=== PATIENT | male | born 1985 ===

== ENCOUNTER 2022-08-26 23:45 | Inpatient (IN) | payer OTHER, SELFPAY ==
--- NOTE | ~2022-08-26 | XR_ITS ---
EXAMINATION: XR CHEST CLINICAL INFORMATION: Shortness of breath COMPARISON: 04/14/2019 TECHNIQUE: Frontal view of the chest was obtained. FINDINGS: EKG leads overlie the chest. Lungs are clear. No consolidation, pneumothorax, or pleural effusion. Cardiac and mediastinal contours are normal. Pulmonary vasculature is unremarkable. Osseous structures are unremarkable. XR/XR chest 1V IMPRESSION: No acute cardiopulmonary findings
[2022-08-26 23:47] VITALS: PULSE 124; RESP 30; TEMP 36.9; O2SAT 93; BMI 25.5
[2022-08-26 23:53] VITALS: BP 186/82
--- NOTE | 2022-08-26 23:59 | ED_ITS ---
HPI - Asthma General Chief Complaint: Asthma Stated Complaint: asthma attak Time Seen by Provider: 08/26/22 23:57 Source: patient Mode of arrival: ambulatory Limitations: no limitations History of Present Illness HPI Narrative: 37-year-old male history of asthma presents with complaints of sudden-onset shortness of breath, wheezing, tells me feels like his typical asthma attack however worse than ever. This started 30-40 minutes prior to arrival. Patient took multiple inhalers and nebulizing treatments with little to no relief. He arrives in moderate respiratory distress and speaking in short sentences, di aphoretic appearing, was rash back from triage. Saturating 92%. Patient tells me multiple coworkers are sick with upper respiratory infections. He denies chest pain, fevers, chills, cough, nausea, vomiting, abdominal pain, headache, vision changes, dizziness and weakness. Related Data Allergies Allergy/AdvReac Type Severity Reaction Status Date / Time Penicillins [PENICILLINS] Allergy Unknown UNKNOWN Verified 08/27/22 00:25 Review of Systems Review of Systems: Constitutional : No Weight loss, No Fever, No Chills, No Fatigue, No Malaise ENT/Mouth : No sore throat, No Rhinorrhea Eyes: No Eye Pain, No Swelling, No Redness Cardiovascular : No Chest Pain, + SOB, No Dyspnea on Exertion, No Orthopnea, No Edema, No Palpitations Respiratory : No Cough, No Sputum, + Wheezing Gastrointestinal : No Nausea, No Vomiting, No Diarrhea, No Constipation, No abdominal Pain, No Hematochezia, No Melena Genitourinary : No Dysuria, No Urinary Frequency, No Hematuria, Musculoskeletal : No joint pain, No Myalgias, No Joint Swelling Skin : No Skin Lesions, No rash Neuro : No Weakness, No Numbness, No Dizziness, No Headache Psych : No Anxiety/Panic, No Depression All other systems reviewed and are negative Yes all other systems are reviewed and are negative FOR[facility]LY [facility] Past Medical History Attestation statement: The following information was validated with the patient. Source: old records reviewed and nursing notes reviewed Social History Social History Advance Directives: No Advance Directives Information Provided: Yes Physical Exam Vital Signs: Vital Signs: Last Vital Signs Temp 98.4 F 08/26/22 23:47 Pulse 112 H 08/27/22 00:08 Resp 26 H 08/27/22 00:08 BP 186/82 H 08/26/22 23:53 Pulse Ox 93 08/26/22 23:47 O2 Del Method Room Air 08/26/22 23:47 BMI result Body Mass Index 25.5 Patient hypoxic, tachycardic and tachypneic. Appearance: Alert.? Oriented X3.? Moderate acute distress.? Patient speaking in short sentences, diaphoretic, using accessory muscles for breathing with tracheal tugging. Head: Normocephalic, atraumatic, no step-offs or deformities Eyes: Pupils equal, round and reactive to light.? ENT: Pharynx normal.? Neck: Normal inspection.? Neck supple.? CVS: Normal heart rate and rhythm.? Pulses normal.? Respiratory: Moderate respiratory distress.? Breath sounds diminished with significant expiratory wheezing throughout.? Abdomen: Soft and nontender.? Skin: Skin warm and dry.? Normal skin color.? Normal skin turgor.? Extremities: No lower extremity edema.? No calf ttp. 5/5 strength to bilateral upper and lower extremities Neuro: Oriented X 3.? No motor deficit.? No sensory deficit. CN 2-12 intact Course Reevaluation(s) Reevaluation #1: Patient continues to have labored breathing 92% on room air on telemetry monitor in a sinus tachycardic rhythm, labored breathing still present, IV in place, I did place an 18 gauge IV to the left AC bloods were obtained and are pending at this time. Time: 00:07 Reevaluation #2: White blood cell count 17.4 likely secondary to acute asthma exacerbation/reactive, CBC with eosinophilic predominance supporting this. VBG with a pH of 7.31, otherwise unremarkable. Pending chemistry. Time: 00:27 Reevaluation #3: Patient feels better, saturating 92-94% on room air. Respiratory rate slow down after morphine was given. Patient appears much more comfortable than he was initially. Chemistry unremarkable. Plan is to admit patient to the hospital. Hospitalist aware Time: 00:53 Medications Administered Generic Name Dose Route Start Last Admin Trade Name Freq PRN Reason Stop Dose Admin Magnesium Sulfate 2 gm in 50 mls @ 25 mls/hr 08/26/22 23:57 08/27/22 00:00 Magnesium Sulfate/H2o IV 08/27/22 01:56 25 mls/hr ONCE ONE Administration Discontinued Medications Generic Name Dose Route Start Last Admin Trade Name Bharat PRN Reason Stop Dose Admin Albuterol Sulfate 10 mg 08/26/22 23:57 08/27/22 00:17 Albuterol Sulfate 2.5 Mg/0.5 Ml Vial.Neb INHALE 08/26/22 23:58 Not Given ONCE ONE Albuterol Sulfate 10 mg 08/27/22 00:07 08/27/22 00:14 Albuterol Sulfate (0.083%) 2.5 Mg/3 Ml Vial.Neb INHALE 08/27/22 00:08 10 mg ONCE ONE Administration Methylprednisolone Sodium Succinate 125 mg 08/26/22 23:57 08/27/22 00:00 Methylprednisolone Sod Succ 125 Mg/2 Ml Vial IVPUSH 08/26/22 23:58 125 mg ONCE ONE Administration Morphine Sulfate 2 mg 08/27/22 00:11 08/27/22 00:30 Morphine Sulfate 2 Mg/Ml Cartridge IVPUSH 08/27/22 00:12 2 mg ONCE ONE Administration Protocol Medical Decision Making Medical Decision Making MDM Narrative: 0005 37-year-old male presents with shortness of breath and wheezing that started around 40 minutes prior to arrival, not responding to albuterol treatments, nebulizing treatments. Feels like typical asthma attack. Labored breathing noted on arrival. 92% on room air, diaphoretic, speaking in short sentences. To know, patient has not required intubations for previous asthma exacerbations Physical exam significant for ? Moderate acute distress.? Patient speaking in short sentences, diaphoretic, using accessory muscles for breathing with tracheal tugging. Patient has diminished breath sounds bilaterally with significant expiratory wheezing throughout. Tachycardia likely secondary to multiple albuterol treatments/nebulizing treatments. I do not suspect PE on this patient. This is likely acute asthma exacerbation. Will rule out viral illness. Electrolyte abnormalities. Will obtain VBG to rule out metabolic disturbances. Plan at this time albuterol, magnesium, Solu-Medrol. Will observe patient. Respiratory at the bedside. Differential Diagnosis Differential Diagnoses: The differential diagnosis associated with the presenta tion includes Tachycardia likely secondary to multiple albuterol treatments/nebulizing t reatments. I do not suspect PE on this patient. This is likely acute asthma exacerbation. Will rule out viral illness. Electrolyte abnormalities. Will obtain VBG to rule out metabolic disturbances. Admission/Observation Consideration of admission/observation: Escalation of care including admission/observation considered Likely hospital admission Lab Data MDM Lab Attestation statement: I reviewed the patient's lab results. 08/26/22 23:56 08/26/22 23:56 Labs: Lab Results 08/26/22 08/26/22 08/26/22 Range/Units 23:56 23:56 23:59 WBC 17.4 H (4.8-10.8) X10*3/uL RBC 5.81 H (4.60-5.80) X10*6/uL Hgb 15.7 (14.0-18.0) g/dl Hct 48.2 (42.0-52.0) % MCV 83.0 (80.0-98.0) fL MCH 27.0 (27.0-33.0) pg MCHC 32.6 (31.0-36.0) g/dl RDW 13.2 (11.0-16.0) % Plt Count 350 (160-400) X10*3/uL MPV 10.0 (9.4-12.4) fL Immature Gran % (Auto) 0.3 (0.0-0.4) % Neut % (Auto) 51.4 (45-73) % Lymph % (Auto) 28.5 (20-40) % [place] % (Auto) 5.9 (2-11) % Eos % (Auto) 13.4 H (0-4) % Baso % (Auto) 0.5 (0-2) % Lymph # (Auto) 4.9 (1.2-4.9) X10*3/uL [place] # (Auto) 1.0 (0.1-1.2) X10*3/uL Eos # (Auto) 2.3 H (0.0-0.4) X10*3/uL Baso # (Auto) 0.1 (0.0-0.2) X10*3/uL Abs Immat Gran (auto) 0.06 H (0.00-0.03) X10*3/uL Absolute Neuts (auto) 8.9 H (2.0-8.3) x10*3/uL Absolute Nucleated RBC 0.000 (0.0-0.012) X10*3/uL Nucleated RBC % (auto) 0.0 (0.0-0.2) /100WBC Smear Tech's Comments VERIFIED VBG pH 7.31 L (7.32-7.43) VBG pCO2 50 mmHg VBG pO2 83 mmHg VBG HCO3 25 (22-26) mmol/L VBG O2 Saturation 99.0 % VBG Base Excess -1.0 mmol/L Sodium 141 (135-145) mmol/L Potassium 4.4 (3.3-5.1) mmol/L Chloride 106 (96-108) mmol/L Carbon Dioxide 23 (22-29) mmol/L Anion Gap 16 (12-20) BUN 9 (9-16) mg/dL Creatinine 0.93 (0.5-1.4) mg/dL Estim Creat Clear Calc 107.2 Estimated GFR > 60 Random Glucose 114 (60-115) mg/dL Calcium 9.4 (8.4-10.2) mg/dL Total Bilirubin 0.6 (0.0-1.0) mg/dL AST 19 (5-37) U/L ALT 21 (0-40) U/L Alkaline Phosphatase 72 (39-117) U/L Total Protein 7.7 (6.5-8.0) g/dL Albumin 4.8 (3.5-5.0) g/dL COVID-19 (LEIGH) (Negative) COVID-19 Clin Com Influenza Type A (FELIX) (Negative) Influenza Type B (FELIX) (Negative) Influenza A & B Note 08/27/22 08/27/22 Range/Units 00:15 00:15 WBC (4.8-10.8) X10*3/uL RBC (4.60-5.80) X10*6/uL Hgb (14.0-18.0) g/dl Hct (42.0-52.0) % MCV (80.0-98.0) fL MCH (27.0-33.0) pg MCHC (31.0-36.0) g/dl RDW (11.0-16.0) % Plt Count (160-400) X10*3/uL MPV (9.4-12.4) fL Immature Gran % (Auto) (0.0-0.4) % Neut % (Auto) (45-73) % Lymph % (Auto) (20-40) % [place] % (Auto) (2-11) % Eos % (Auto) (0-4) % Baso % (Auto) (0-2) % Lymph # (Auto) (1.2-4.9) X10*3/uL [place] # (Auto) (0.1-1.2) X10*3/uL Eos # (Auto) (0.0-0.4) X10*3/uL Baso # (Auto) (0.0-0.2) X10*3/uL Abs Immat Gran (auto) (0.00-0.03) X10*3/uL Absolute Neuts (auto) (2.0-8.3) x10*3/uL Absolute Nucleated RBC (0.0-0.012) X10*3/uL Nucleated RBC % (auto) (0.0-0.2) /100WBC Smear Tech's Comments VBG pH (7.32-7.43) VBG pCO2 mmHg VBG pO2 mmHg VBG HCO3 (22-26) mmol/L VBG O2 Saturation % VBG Base Excess mmol/L Sodium (135-145) mmol/L Potassium (3.3-5.1) mmol/L Chloride (96-108) mmol/L Carbon Dioxide (22-29) mmol/L Anion Gap (12-20) BUN (9-16) mg/dL Creatinine (0.5-1.4) mg/dL Estim Creat Clear Calc Estimated GFR Random Glucose (60-115) mg/dL Calcium (8.4-10.2) mg/dL Total Bilirubin (0.0-1.0) mg/dL AST (5-37) U/L ALT (0-40) U/L Alkaline Phosphatase (39-117) U/L Total Protein (6.5-8.0) g/dL Albumin (3.5-5.0) g/dL COVID-19 (LEIGH) Negative (Negative) COVID-19 Clin Com See Note Influenza Type A (FELIX) Negative (Negative) Influenza Type B (FELIX) Negative (Negative) Influenza A & B Note See Note Independent Interpretation I performed an independent interpretation of an: Plain X-Ray Radiology Impression Discussion of test interpretation with radiology: I have reviewed the radiologist's reading. Core Measures AMI core measures followed: Yes Measure exclusions: not indicated Critical Care Time Critical Care Time Critical Care Time: No Discharge Plan Discharge Clinical Impression: Asthma with acute exacerbation Patient Disposition: Admitted As Inpatient
[2022-08-27] VITALS (10 sets, daily range): BP systolic 109–151; BP diastolic 62–85; PULSE 93–112; RESP 14–26; TEMP 36.4–36.7; O2SAT 91–98
[2022-08-27] MEDS: methylPREDNISolone Sod Succ 125 MG/2 ML VIAL IVPUSH
[2022-08-27] MEDS: Magnesium Sulfate/H2O 2 GM/50 ML PIGGYBACK IV
[2022-08-27 00:05] LABS: Basophils Absolute Auto 0.1 X10*3/uL (0.0-0.2); Basophils Percent Auto 0.5 % (0-2); Eosinophils Absolute Auto 2.3 X10*3/uL (0.0-0.4); Eosinophils Percent Auto 13.4 % (0-4); Hematocrit 48.2 % (42.0-52.0); Hemoglobin 15.7 g/dl (14.0-18.0); Imm Gran Abs Auto 0.06 X10*3/uL (0.00-0.03); Imm Gran Pct Auto 0.3 % (0.0-0.4); Lymphocytes Absolute Auto 4.9 X10*3/uL (1.2-4.9); Lymphocytes Percent Auto 28.5 % (20-40); MANUAL DIFF FLAG SCAN; Mean Corpuscular HGB Conc 32.6 g/dl (31.0-36.0); Monocytes Percent Auto 5.9 % (2-11); Neutrophils Absolute Auto 8.9 x10*3/uL (2.0-8.3); Neutrophils Percent Auto 51.4 % (45-73); Platelet Count 350 X10*3/uL (160-400); Red Blood Count 5.81 X10*6/uL (4.60-5.80); Red Cell Distribution Width 13.2 % (11.0-16.0); SCAN SMEAR FLAG 1; Venous Blood Gas Refer to POC result; White Blood Count 17.4 X10*3/uL (4.8-10.8)
[2022-08-27 00:07] LABS: VBG HCO3 25 mmol/L (22-26); VBG pCO2 50 mmHg; VBG pH 7.31 (7.32-7.43); VBG pO2 83 mmHg
--- NOTE | 2022-08-27 00:07 | PC.NURSE ---
pt a&o, with sob, respiratory called, MARYBETH simental the bedside to assess pt, Iv, labs and mediation given, pt is sitting tri pod. pt place on bedside assembler chassis.
[2022-08-27] MEDS: Albuterol Sulfate (0.083%) 2.5 MG/3 ML VIAL.NEB 10 MG INHALE (00:14)
[2022-08-27 00:25] LABS: SLIDE REVIEW VERIFIED
[2022-08-27 00:29] LABS: Alanine Aminotransferase 21 U/L (0-40); Albumin Level 4.8 g/dL (3.5-5.0); Alkaline Phosphatase 72 U/L (39-117); Anion Gap 16 (12-20); Aspartate Amino Transferase 19 U/L (5-37); Bilirubin Total 0.6 mg/dL (0.0-1.0); Blood Urea Nitrogen 9 mg/dL (9-16); Calcium 9.4 mg/dL (8.4-10.2); Carbon Dioxide 23 mmol/L (22-29); Chloride 106 mmol/L (96-108); Creatinine Clr Calc Pharmacy 107.2; Estimated Glomerular Filt Rate > 60; Glucose Random 114 mg/dL (60-115); Potassium 4.4 mmol/L (3.3-5.1); Sodium 141 mmol/L (135-145); Total Protein 7.7 g/dL (6.5-8.0)
[2022-08-27] MEDS: Morphine Sulfate 2 MG/ML CARTRIDGE IVPUSH (00:30)
--- NOTE | 2022-08-27 00:33 | PC.NURSE ---
Medicated per Mar, pt respiration has improved. Will continue to monitor
[2022-08-27 00:36] LABS: COVID-19 Test Negative (Negative); IDNOW Serial# 08D9AD1C; IDNOW Serial# BCCEAD1C; Influenza A Negative (Negative); Influenza B2 Negative (Negative)
--- NOTE | 2022-08-27 00:48 | P.HPHOSP_ITS ---
History of Present Illness Date of Service: 08/27/22 Chief Complaint: Dyspnea This is a 37-year-old male with pertinent history of asthma who presents to the emergency department for evaluation of dyspnea and wheezing. Patient states it started on the day of presentation. He took multiple inhalers and nebulizing treatments at home with no relief. Patient states that multiple coworkers are sick at his workplace with upper respiratory tract infections. He denies fever, chills, cough. Patient states he has had asthmatic attacks before and this feels similar to his previous episode. States walking outside made him short of breath. Patient denies chest discomfort, palpitations, abdominal pain, changes in urinary or bowel habits. In the emergency department, patient was found to be hypoxemic and continued to be dyspneic even with multiple DuoNeb treatments Review of Systems Constitutional: Constitutional: Reports no additional constitutional complaints ENT: Reports system reviewed and no additional complaints, except as documented Cardiovascular: Cardiovascular: Reports dyspnea on exertion Respiratory: Respiratory: Reports dyspnea on exertion and Reports wheezing Gastrointestinal: Gastrointestinal: Reports no additional gastrointestinal complaints Genitourinary: Genitourinary: Reports no additional male genitourinary complaints Musculoskeletal: Musculoskeletal: Reports no additional musculoskeletal complaints Allergic/Immunologic: Allergic/Immunologic: Reports wheezing [facility] Medical History Asthma Pertinent family history: no family history of early CAD Social History Advance Directives: No Advance Directives Information Provided: Yes Meds Allergies Allergy/AdvReac Type Severity Reaction Status Date / Time Penicillins [PENICILLINS] Allergy Unknown UNKNOWN Verified 08/27/22 00:25 Active Medications: Current Medications Magnesium Sulfate (Magnesium Sulfate/H2o) 2 gm in 50 mls @ 25 mls/hr IV ONCE ONE Stop: 08/27/22 01:56 Last Admin: 08/27/22 00:00 Dose: 25 mls/hr Levalbuterol HCl (Levalbuterol Hcl 1.25 Mg/3 Ml Vial.Neb) 1.25 mg INHALE Q3H PRN PRN Reason: wheezing Levalbuterol HCl (Levalbuterol Hcl 1.25 Mg/3 Ml Vial.Neb) 1.25 mg INHALE RQ4H WHILE AWAKE [facility] Pharmacy Consult (Consult Rx Perform Med Rec) 1 each MISCELLANE ONCE PRN PRN Reason: Consult order Physical Exam Vital Signs and Narrative: Vital Signs: Last Vital Signs Temp 98.4 F 08/26/22 23:47 Pulse 112 H 08/27/22 00:08 Resp 26 H 08/27/22 00:08 BP 186/82 H 08/26/22 23:53 Pulse Ox 93 08/26/22 23:47 O2 Del Method Room Air 08/26/22 23:47 BMI result Body Mass Index 25.5 Middle-aged male lying in bed in mild distress on supplemental oxygen Neck supple, no JVD Tachycardic with regular rhythm, S1-S2 heard Bilateral wheezing without crackles Abdomen soft nontender, no guarding, no rigidity Patient is awake, alert and oriented to self, place, time and person ; no focal motor deficit Psych: Normal mood No pedal edema Results Labs 08/26/22 23:56 08/26/22 23:56 Labs: Laboratory Results - last 24 hr 08/26/22 08/26/22 08/26/22 23:56 23:56 23:59 MCV 83.0 MCH 27.0 MCHC 32.6 RDW 13.2 Plt Count 350 MPV 10.0 Immature Gran % (Auto) 0.3 Neut % (Auto) 51.4 Lymph % (Auto) 28.5 [place] % (Auto) 5.9 Eos % (Auto) 13.4 H Baso % (Auto) 0.5 Lymph # (Auto) 4.9 [place] # (Auto) 1.0 Eos # (Auto) 2.3 H Baso # (Auto) 0.1 Abs Immat Gran (auto) 0.06 H Absolute Neuts (auto) 8.9 H Absolute Nucleated RBC 0.000 Nucleated RBC % (auto) 0.0 Smear Tech's Comments VERIFIED VBG pH 7.31 L VBG pCO2 50 VBG pO2 83 VBG HCO3 25 VBG O2 Saturation 99.0 VBG Base Excess -1.0 Anion Gap 16 Estim Creat Clear Calc 107.2 Estimated GFR > 60 Random Glucose 114 Calcium 9.4 Total Bilirubin 0.6 AST 19 ALT 21 Alkaline Phosphatase 72 Total Protein 7.7 Albumin 4.8 COVID-19 (LEIGH) COVID-19 Clin Com Influenza Type A (FELIX) Influenza Type B (FELIX) Influenza A & B Note 08/27/22 08/27/22 00:15 00:15 MCV MCH MCHC RDW Plt Count MPV Immature Gran % (Auto) Neut % (Auto) Lymph % (Auto) [place] % (Auto) Eos % (Auto) Baso % (Auto) Lymph # (Auto) [place] # (Auto) Eos # (Auto) Baso # (Auto) Abs Immat Gran (auto) Absolute Neuts (auto) Absolute Nucleated RBC Nucleated RBC % (auto) Smear Tech's Comments VBG pH VBG pCO2 VBG pO2 VBG HCO3 VBG O2 Saturation VBG Base Excess Anion Gap Estim Creat Clear Calc Estimated GFR Random Glucose Calcium Total Bilirubin AST ALT Alkaline Phosphatase Total Protein Albumin COVID-19 (LEIGH) Negative COVID-19 Clin Com See Note Influenza Type A (FELIX) Negative Influenza Type B (FELIX) Negative Influenza A & B Note See Note Imaging Radiologist's Impressions: Impressions Chest X-Ray 08/27/22 00:15 IMPRESSION: No acute cardiopulmonary findings Assessment and Plan (1) Asthma with acute exacerbation: Status: Acute Plan This is a 37-year-old male with pertinent history of asthma who presents to the emergency department for evaluation of dyspnea and wheezing. #. Acute hypoxemic respiratory failure due to acute exacerbation of asthma: Will admit patient and initiate systemic steroids. Scheduled and p.r.n. beta agonist. Continue home inhaler. Continue supplemental oxygen and wean as tolerated. #. Reactive leukocytosis: Defer antibiotics DVT prophylaxis: None. Patient is ambulatory Full code Regular diet Admit as inpatient and will require two night minimum hospital stay for supplemental oxygen Time Spent With Patient Time: Total time managing care of this patient today ____ minutes. Quality Stroke Does the patient have a stroke diagnosis?: No VTE Prior VTE?: No VTE Risk Level:: Medical - low VTE Device Contraindication: Treatment Not Indicated VTE Drug Contraindication: Treatment Not Indicated
--- NOTE | 2022-08-27 06:03 | MHC.EDTECH ---
Per RN- Pulse, Resp, and o2 were recorded for 0600 Vitals, Before shift change
[2022-08-27 06:26] LABS: Basophils Percent Auto 0.2 % (0-2); Eosinophils Percent Auto 0.2 % (0-4); Hematocrit 45.3 % (42.0-52.0); Imm Gran Abs Auto 0.07 X10*3/uL (0.00-0.03); Imm Gran Pct Auto 0.6 % (0.0-0.4); Lymphocytes Absolute Auto 0.4 X10*3/uL (1.2-4.9); Lymphocytes Percent Auto 3.7 % (20-40); MANUAL DIFF FLAG SCAN; Mean Corpuscular HGB Conc 33.1 g/dl (31.0-36.0); Mean Corpuscular Hemoglobin 27.4 pg (27.0-33.0); Mean Corpuscular Volume 82.8 fL (80.0-98.0); Mean Platelet Volume 10.1 fL (9.4-12.4); Monocytes Absolute Auto 0.1 X10*3/uL (0.1-1.2); Monocytes Percent Auto 0.6 % (2-11); Neutrophils Absolute Auto 11.3 x10*3/uL (2.0-8.3); Neutrophils Percent Auto 94.7 % (45-73); Platelet Count 283 X10*3/uL (160-400); Red Blood Count 5.47 X10*6/uL (4.60-5.80); Red Cell Distribution Width 13.2 % (11.0-16.0); SCAN SMEAR FLAG 1; White Blood Count 11.9 X10*3/uL (4.8-10.8)
--- NOTE | 2022-08-27 06:40 | PC.NURSE ---
pt doing well over night, significant improvement in respiratory symptoms, pt able to speak in full sentence, no sign of respiratory distress, pt able to ambulate with a steady gait with no respiratory distress.
[2022-08-27 06:54] LABS: Anion Gap 19 (12-20); Blood Urea Nitrogen 8 mg/dL (9-16); Calcium 9.2 mg/dL (8.4-10.2); Carbon Dioxide 20 mmol/L (22-29); Chloride 106 mmol/L (96-108); Estimated Glomerular Filt Rate > 60; Glucose Random 165 mg/dL (60-115); Potassium 4.1 mmol/L (3.3-5.1); Sodium 141 mmol/L (135-145)
[2022-08-27] MEDS: Albuterol Sulfate (0.083%) 2.5 MG/3 ML VIAL.NEB INHALE ×3 (07:28→15:18)
--- NOTE | 2022-08-27 08:26 | PHA.MEDREC ---
Pharmacy Consult ? Medication Reconciliation Pharmacy has completed the medication reconciliation.
[2022-08-27] MEDS: 0.9 % Sodium Chloride Flush 3 ML SYRINGE IVFLUSH (08:31)
--- NOTE | 2022-08-27 08:43 | PC.NURSE ---
report given to SANDRA Parekh, transporter notified. pt will be transported to room 443
--- NOTE | 2022-08-27 10:29 | PM.EVENT ---
Event Note Date of Service: 08/27/22 Event Note: Pt seen and examined, here with exacerb ation of moderate peristent asthma, management per H/P from [facility] This is a 37-year-old male with pertinent history of asthma who presents to the emergency department for evaluation of dyspnea and wheezing. #.? Acute hypoxemic respiratory failure due to acute exacerbation of asthma:? Will admit patient and initiate systemic steroids.? Scheduled and p.r.n. beta agonist.? Continue home inhaler.? Continue supplemental oxygen and wean as tolerated. #.? Reactive leukocytosis: Defer antibiotics DVT prophylaxis:? None.? Patient is ambulatory Full code Regular diet Time Spent With Patient Time: Total time managing care of this patient today ____ minutes.
[2022-08-27] MEDS: methylPREDNISolone Sod Succ 40 MG/ML VIAL IVPUSH (11:45)
--- NOTE | 2022-08-27 12:15 | MHC.CM.PN ---
CM met with Patient and his Sister at bedside. Patient lives alone in a house and is functionally independent and working. Home self care is the goal and CM has initiated and will follow for dc planning. Patient does not have a PCP; his previous PCP was Dr. Decker from [facility]. Patient is covid vax'd x3 and declined a HCP.
--- NOTE | 2022-08-27 16:34 | P.DS_ITS ---
DS: Providers Provider Date of Service: 08/27/22 Date of admission: 08/27/22 01:12 Primary care physician: Unknown Physician DS: Diagnosis Discharge Diagnosis (1) Asthma with acute exacerbation: Status: Acute DS: Summary Hospital Course Hospital Course: Chief Complaint: Dyspnea This is a 37-year-old male with pertinent history of asthma who presents to the emergency department for evaluation of dyspnea and wheezing.? Patient states it started on the day of presentation.? He took multiple inhalers and nebulizing treatments at home with no relief.? Patient states that multiple coworkers are sick at his workplace with upper respiratory tract infections.? He denies fever, chills, cough.? Patient states he has had asthmatic attacks before and this feels similar to his previous episode.? States walking outside made him short of breath.? Patient denies chest discomfort, palpitations, abdominal pain, changes in urinary or bowel habits. In the emergency department, patient was found to be hypoxemic and continued to be dyspneic even with multiple DuoNeb treatments Hospital course: Patient was observed in the hospital for exacerbation of astham and recovered rather rapidly and at this point is doing much better and feels comfortable going home. Lungs are essentially clear. Will discharge with Prednisone for total of 5 days. Time Spent with Patient Time attestation: Total time managing care of this patient today ____ minutes. Discharge coordination time: Greater than 30 minutes Quality: Safe Use of Opioids Does Pt have an Active Cancer Diagnosis on the Problem List?: No Quality: Stroke Does the patient have a stroke diagnosis?: No Physical Exam Vital Signs: Vital Signs: Last Vital Signs Temp 97.7 F 08/27/22 15:07 Pulse 104 H 08/27/22 15:20 Resp 18 08/27/22 15:20 BP 131/81 08/27/22 15:07 Pulse Ox 92 08/27/22 15:07 O2 Del Method Room Air 08/27/22 15:07 O2 Flow Rate 6 08/27/22 03:52 BMI result Body Mass Index 25.5 Const: Other: General: AO X 3, no acute distress Resp: CTA bilateral CVS: S1,S2,RRR GI: +BS, NT, no distention Skin: No rash Neuro: motor grossly intact Psych: appropriate affect DS: Data Data Completed and Pending Labs on day of discharge: Laboratory Results - last 24 hr 0408/26/22 08/26/22 23:56 23:56 23:59 WBC 17.4 H RBC 5.81 H Hgb 15.7 Hct 48.2 MCV 83.0 MCH 27.0 MCHC 32.6 RDW 13.2 Plt Count 350 MPV 10.0 Immature Gran % (Auto) 0.3 Neut % (Auto) 51.4 Lymph % (Auto) 28.5 [place] % (Auto) 5.9 Eos % (Auto) 13.4 H Baso % (Auto) 0.5 Lymph # (Auto) 4.9 [place] # (Auto) 1.0 Eos # (Auto) 2.3 H Baso # (Auto) 0.1 Abs Immat Gran (auto) 0.06 H Absolute Neuts (auto) 8.9 H Absolute Nucleated RBC 0.000 Nucleated RBC % (auto) 0.0 Smear Tech's Comments VERIFIED VBG pH 7.31 L VBG pCO2 50 VBG pO2 83 VBG HCO3 25 VBG O2 Saturation 99.0 VBG Base Excess -1.0 Sodium 141 Potassium 4.4 Chloride 106 Carbon Dioxide 23 Anion Gap 16 BUN 9 Creatinine 0.93 Estim Creat Clear Calc 107.2 Estimated GFR > 60 Random Glucose 114 Calcium 9.4 Total Bilirubin 0.6 AST 19 ALT 21 Alkaline Phosphatase 72 Total Protein 7.7 Albumin 4.8 COVID-19 (LEIGH) COVID-19 Clin Com Influenza Type A (FELIX) Influenza Type B (FELIX) Influenza A & B Note 08/27/22 08/27/22 08/27/22 00:15 00:15 06:15 WBC 11.9 H RBC 5.47 Hgb 15.0 Hct 45.3 MCV 82.8 MCH 27.4 MCHC 33.1 RDW 13.2 Plt Count 283 MPV 10.1 Immature Gran % (Auto) 0.6 H Neut % (Auto) 94.7 H Lymph % (Auto) 3.7 L [place] % (Auto) 0.6 L Eos % (Auto) 0.2 Baso % (Auto) 0.2 Lymph # (Auto) 0.4 L [place] # (Auto) 0.1 Eos # (Auto) 0.0 Baso # (Auto) 0.0 Abs Immat Gran (auto) 0.07 H Absolute Neuts (auto) 11.3 H Absolute Nucleated RBC 0.000 Nucleated RBC % (auto) 0.0 Smear Tech's Comments VBG pH VBG pCO2 VBG pO2 VBG HCO3 VBG O2 Saturation VBG Base Excess Sodium Potassium Chloride Carbon Dioxide Anion Gap BUN Creatinine Estim Creat Clear Calc Estimated GFR Random Glucose Calcium Total Bilirubin AST ALT Alkaline Phosphatase Total Protein Albumin COVID-19 (LEIGH) Negative COVID-19 Clin Com See Note Influenza Type A (FELIX) Negative Influenza Type B (FELIX) Negative Influenza A & B Note See Note 08/27/22 06:15 WBC RBC Hgb Hct MCV MCH MCHC RDW Plt Count MPV Immature Gran % (Auto) Neut % (Auto) Lymph % (Auto) [place] % (Auto) Eos % (Auto) Baso % (Auto) Lymph # (Auto) [place] # (Auto) Eos # (Auto) Baso # (Auto) Abs Immat Gran (auto) Absolute Neuts (auto) Absolute Nucleated RBC Nucleated RBC % (auto) Smear Tech's Comments VBG pH VBG pCO2 VBG pO2 VBG HCO3 VBG O2 Saturation VBG Base Excess Sodium 141 Potassium 4.1 Chloride 106 Carbon Dioxide 20 L Anion Gap 19 BUN 8 L Creatinine 0.89 Estim Creat Clear Calc 112.0 Estimated GFR > 60 Random Glucose 165 H Calcium 9.2 Total Bilirubin AST ALT Alkaline Phosphatase Total Protein Albumin COVID-19 (LEIGH) COVID-19 Clin Com Influenza Type A (FELIX) Influenza Type B (FELIX) Influenza A & B Note Discharge Plan Discharge Anticipated Discharge Date/Time: 08/27/22 16:28 Patient Disposition: Home, Self-Care Discharge Diagnosis: Acute exacerbation of asthma Referrals: Physician,Unknown J [Primary Care Provider] - 1 Week Discharge Medications: New prednisone 20 mg tablet 40 mg PO DAILY Qty: 8 0RF Continued albuterol sulfate 2.5 mg /3 mL (0.083 %) solution for nebulization 2.5 mg inhalation Q6H PRN (Reason: wheezing) albuterol sulfate 90 mcg/actuation HFA aerosol inhaler 2 puff INHALATION Q6H PRN (Reason: wheezing) loratadine [Claritin] 10 mg Tablet 10 mg PO DAILY Discharge Orders: Discharge Order (Routine); Ordered 08/27/22 Ordered By: Joey Dao Diet: Advance to usual diet Activity on Discharge: As tolerated Stand Alone Forms: Patient Portal Discharge page, Work/School Release Care Plan Goals: full recovery Health Concerns: asthma Plan of Treatment: Take Prednisone 40 mg daily for next 4 days, follow up with your doctor in your symptoms persists Assessment: as above
== END 2022-08-27 17:00 | disposition home or self-care (01) | DRG 133 ==
LOC: HO.ED 08-27 00:14 → HO.EDOVER 08-27 00:56 → HO.IMC 08-27 07:55
PROVIDERS: Physician Assistant; Admitting Provider Student in an Organized Health Care Education/Training Program; Emergency Provider Emergency Medicine Emergency Medical Services; Visit Provider Internal Medicine
DX: J96.01 Acute respiratory failure with hypoxia (principal); J45.901 Unspecified asthma with (acute) exacerbation; Z20.822 Contact with and (suspected) exposure to COVID-19; Z88.0 Allergy status to penicillin; Z79.899 Other long term (current) drug therapy; T38.0X5A Adverse effect of glucocorticoids and synthetic analogues, initial encounter; Y92.9 Unspecified place or not applicable
CPT/HCPCS: 0241U; 36415; 71045; 80048; 80053; 80307; 82803; 85025; 87502; 87635; 93005; 94640; 99285; J1100; J2270; J2920; J2930; J3475

== ENCOUNTER 2022-08-27 23:00 | Inpatient (IN) | payer OTHER, SELFPAY ==
--- NOTE | ~2022-08-27 | XR_ITS ---
EXAMINATION: XR CHEST CLINICAL INFORMATION: Short of breath COMPARISON: 08/27/2022 TECHNIQUE: Frontal view of the chest was obtained. FINDINGS: The lungs are well expanded. There is no focal consolidation, edema, or effusion. No pneumothorax. The cardiomediastinal silhouette is within normal limits. No acute osseous abnormality. XR/XR chest 1V IMPRESSION: Clear lungs.
[2022-08-27 23:03] VITALS: BP 109/88; PULSE 137; RESP 35; TEMP 36.1; O2SAT 85; BMI 27.4
--- NOTE | 2022-08-27 23:07 | ED.ASTHMA ---
HPI - Asthma General Chief Complaint: Asthma Stated Complaint: Asthma Time Seen by Provider: 08/27/22 23:02 Source: patient Mode of arrival: ambulatory Limitations: no limitations History of Present Illness HPI Narrative: 37-year-old male history of asthma presents with complaints of sudden-onset shortness of breath, wheezing, tells me feels like his typical asthma attack however worse than ever, seen here yesterday night in the ED and was discharged this afternoon .? This started 30 minutes prior to arrival.? Patient took multiple inhalers and nebulizing treatments with little to no relief.? He arrives in moderate respiratory distress and speaking in short sentences, diaphoretic appearing, was rushed back from triage.? Saturating 83%.? Patient tells me multiple coworkers are sick with upper respiratory infections.? He denies chest pain, fevers, chills, cough, nausea, vomiting, abdominal pain, headache, vision changes, dizziness and weakness. Related Data Previous Rx's Medication Instructions Recorded albuterol sulfate 90 mcg/actuation 2 puff inhalation Q6H PRN wheezing 08/27/22 aerosol inhaler #1 g loratadine 10 mg tablet (Claritin) 10 mg PO DAILY #30 tabs 08/27/22 dexamethasone 6 mg tablet 6 mg PO DAILY #3 tabs 08/30/22 ipratropium 0.5 mg-albuterol 3 mg 3 ml inhalation Q4H PRN Wheezing 08/30/22 (2.5 mg base)/3 mL nebulization #90 mL soln Allergies Allergy/AdvReac Type Severity Reaction Status Date / Time methylprednisolone Allergy Severe Shortness Verified 08/30/22 08:06 [From Solu-Medrol] of Breath and wheezing prednisone Allergy Severe Wheezing Verified 08/30/22 08:06 Penicillins [PENICILLINS] Allergy Unknown UNKNOWN Verified 08/27/22 00:25 Review of Systems Review of Systems: Constitutional : No Weight loss, No Fever, No Chills, No Fatigue, No Malaise ENT/Mouth : No sore throat, No Rhinorrhea Eyes: No Eye Pain, No Swelling, No Redness Cardiovascular : No Chest Pain, + SOB, No Dyspnea on Exertion, No Orthopnea, No Edema, No Palpitations Respiratory : No Cough, No Sputum, + Wheezing Gastrointestinal : No Nausea, No Vomiting, No Diarrhea, No Constipation, No abdominal Pain, No Hematochezia, No Melena Genitourinary : No Dysuria, No Urinary Frequency, No Hematuria, Musculoskeletal : No joint pain, No Myalgias, No Joint Swelling Skin : No Skin Lesions, No rash Neuro : No Weakness, No Numbness, No Dizziness, No Headache Psych : No Anxiety/Panic, No Depression All other systems reviewed and are negative Yes all other systems are reviewed and are negative [facility] Past Medical History Attestation statement: The following information was validated with the patient. Source: old records reviewed and nursing notes reviewed Medical History Asthma Social History Social History Household Members: None Housing: House Do you presently have visiting nurse or other home services: No Patient Tobacco Use Status: Never used Tobacco service: No Current occupational status: employed Physical Exam Vital Signs: Vital Signs: Last Vital Signs Temp 98 F 08/30/22 07:24 Pulse 80 08/30/22 08:18 Resp 18 08/30/22 08:18 BP 133/75 08/30/22 07:24 Pulse Ox 96 08/30/22 07:24 O2 Del Method Room Air 08/30/22 07:24 O2 Flow Rate 2 08/29/22 15:45 Oxygen Flow Rate 6 08/27/22 23:03 BMI result Body Mass Index 27.4 Patient hypoxic, tachycardic and tachypneic. ? Appearance: Alert.? Oriented X3.? Moderate acute distress.? Patient speaking in short sentences, diaphoretic, using accessory muscles for breathing with tracheal tugging. Head:? Normocephalic, atraumatic, no step-offs or deformities Eyes: Pupils equal, round and reactive to light.? ENT: Pharynx normal.? Neck: Normal inspection.? Neck supple.? CVS: Normal heart rate and rhythm.? Pulses normal.? Respiratory:? Moderate respiratory distress.? Breath sounds diminished with significant expiratory wheezing throughout.? Abdomen: Soft and nontender.? Skin: Skin warm and dry.? Normal skin color.? Normal skin turgor.? Extremities: No lower extremity edema.? No calf ttp.? 5/5 strength to bilateral upper and lower extremities Neuro: Oriented X 3.? No motor deficit.? No sensory deficit. CN 2-12 intact Course Reevaluation(s) Reevaluation #1: White blood cell count 20.8 likely secondary to acute asthma exacerbation/reactive.?Chemistry without acute electrolyte abnormalities. VBG unremarkable.? Time: 23:56 Reevaluation #2: CXR and viral panel pending. Patient looks slightly better. Time: 00:00 Reevaluation #3: Chest x-ray unremarkable. Viral testing negative. I did discuss case with hospitalist as this is a 72 hour return patient extremely short of breath, significant amount of wheezing. Will give another albuterol treatment. But plan is for hospital admission again. Time: 00:43 Medications Administered Discontinued Medications Generic Name Dose Route Start Last Admin Trade Name Freq PRN Reason Stop Dose Admin Albuterol Sulfate 10 mg 08/27/22 23:05 08/27/22 23:30 Albuterol Sulfate (0.083%) 2.5 Mg/3 Ml Vial.Neb INHALE 08/27/22 23:06 10 mg ONCE ONE Administration Albuterol Sulfate 5 mg 08/28/22 01:07 08/28/22 01:17 Albuterol Sulfate 2.5 Mg/0.5 Ml Vial.Neb INHALE 08/28/22 01:08 5 mg ONCE ONE Administration Albuterol/Ipratropium 3 ml 08/28/22 08:00 08/30/22 08:11 Albuterol/Iprat 2.5/0.5mg 3 Ml Ampul.Neb INHALE 3 ml RQ4H WHILE AWAKE EDWARD Administration Dexamethasone Sodium Phosphate 4 mg 08/28/22 21:00 08/30/22 07:48 Dexamethasone Sod Phosphate 4 Mg/Ml Vial IVPUSH 4 mg BID EDWARD Administration Fluticasone/Vilanterol 1 puff 08/28/22 14:50 08/30/22 11:19 Fluticasone/Vilanterol 200/25 Blst.W.Dev INHALE Not Given RDAILY EDWARD Magnesium Sulfate 2 gm in 50 mls @ 25 mls/hr 08/27/22 23:05 08/28/22 01:15 Magnesium Sulfate/H2o IV 08/28/22 01:04 Infused ONCE ONE Infusion Methylprednisolone Sodium Succinate 125 mg 08/27/22 23:05 08/27/22 23:12 Methylprednisolone Sod Succ 125 Mg/2 Ml Vial IVPUSH 08/27/22 23:06 125 mg ONCE ONE Administration Methylprednisolone Sodium Succinate 40 mg 08/28/22 10:00 08/28/22 09:21 Methylprednisolone Sod Succ 40 Mg/Ml Vial IVPUSH 40 mg Q12H EDWARD Administration Morphine Sulfate 2 mg 08/27/22 23:05 08/27/22 23:12 Morphine Sulfate 2 Mg/Ml Cartridge IVPUSH 08/27/22 23:06 2 mg ONCE ONE Administration Protocol Sodium Chloride 3 ml 08/28/22 08:00 08/30/22 07:48 0.9 % Sodium Chloride Flush 3 Ml Syringe IVFLUSH 3 ml QSHIFT EDWARD Administration Medical Decision Making Medical Decision Making [facility] Narrative: 37-year-old male presents with shortness of breath and wheezing that started around 40 minutes prior to arrival, not responding to albuterol treatments, nebulizing treatments.? Feels like typical asthma attack.? Labored breathing noted on arrival.? 92% on room air, diaphoretic, speaking in short sentences.? To know, patient has not required intubations for previous asthma exacerbations Physical exam significant for ? Moderate acute distress.? Patient speaking in short sentences, diaphoretic, using accessory muscles for breathing with tracheal tugging.? Patient has diminished breath sounds bilaterally with significant expiratory wheezing throughout. Tachycardia likely secondary to multiple albuterol treatments/nebulizing treatments.? I do not suspect PE on this patient.? This is likely acute asthma exacerbation.? Will rule out viral illness.? Electrolyte abnormalities.? Will obtain VBG to rule out metabolic disturbances. Plan at this time albuterol, magnesium, Solu-Medrol.? Will observe patient.? Respiratory at the bedside. Differential Diagnosis Differential Diagnoses: The differential diagnosis associated with the presentation includes achycardia likely secondary to multiple albuterol treatments/nebulizing treatments. I do not suspect PE on this patient. This is likely acute asthma exacerbation. Will rule out viral illness. Electrolyte abnormalities. Will obtain VBG to rule out metabolic disturbances. Admission/Observation Consideration of admission/observation: Escalation of care including admission/observation considered likely Lab Data [facility] Lab Attestation statement: I reviewed the patient's lab results. 08/27/22 23:22 08/27/22 23:22 Labs: Lab Results 08/27/22 08/27/22 08/27/22 Range/Units 23:22 23:22 23:22 WBC 20.8 H (4.8-10.8) X10*3/uL RBC 5.59 (4.60-5.80) X10*6/uL Hgb 15.3 (14.0-18.0) g/dl Hct 46.4 (42.0-52.0) % MCV 83.0 (80.0-98.0) fL MCH 27.4 (27.0-33.0) pg MCHC 33.0 (31.0-36.0) g/dl RDW 13.2 (11.0-16.0) % Plt Count 344 (160-400) X10*3/uL MPV 10.0 (9.4-12.4) fL Immature Gran % (Auto) 0.9 H (0.0-0.4) % Neut % (Auto) 85.3 H (45-73) % Lymph % (Auto) 9.2 L (20-40) % [place] % (Auto) 4.4 (2-11) % Eos % (Auto) 0.1 (0-4) % Baso % (Auto) 0.1 (0-2) % Lymph # (Auto) 1.9 (1.2-4.9) X10*3/uL [place] # (Auto) 0.9 (0.1-1.2) X10*3/uL Eos # (Auto) 0.0 (0.0-0.4) X10*3/uL Baso # (Auto) 0.0 (0.0-0.2) X10*3/uL Abs Immat Gran (auto) 0.18 H (0.00-0.03) X10*3/uL Absolute Neuts (auto) 17.7 H (2.0-8.3) x10*3/uL Absolute Nucleated RBC 0.000 (0.0-0.012) X10*3/uL Nucleated RBC % (auto) 0.0 (0.0-0.2) /100WBC VBG pH (7.32-7.43) VBG pCO2 mmHg VBG pO2 mmHg VBG HCO3 (22-26) mmol/L VBG O2 Saturation % VBG Base Excess mmol/L Sodium 137 (135-145) mmol/L Potassium 4.6 (3.3-5.1) mmol/L Chloride 102 (96-108) mmol/L Carbon Dioxide 21 L (22-29) mmol/L Anion Gap 19 (12-20) BUN 17 H (9-16) mg/dL Creatinine 0.92 (0.5-1.4) mg/dL Estim Creat Clear Calc 102.3 Estimated GFR > 60 Random Glucose 183 H (60-115) mg/dL Calcium 9.6 (8.4-10.2) mg/dL Total Bilirubin 0.5 (0.0-1.0) mg/dL AST 15 (5-37) U/L ALT 23 (0-40) U/L Alkaline Phosphatase 67 (39-117) U/L Total Protein 7.7 (6.5-8.0) g/dL Albumin 4.9 (3.5-5.0) g/dL Influenza Type A (PCR) NEGATIVE (Negative) Influenza Type B (PCR) NEGATIVE (Negative) RSV RNA Qual (PCR) NEGATIVE (Negative) SARS-CoV-2 RNA (RT-PCR) NEGATIVE (Negative) 08/27/22 Range/Units 23:25 WBC (4.8-10.8) X10*3/uL RBC (4.60-5.80) X10*6/uL Hgb (14.0-18.0) g/dl Hct (42.0-52.0) % MCV (80.0-98.0) fL MCH (27.0-33.0) pg MCHC (31.0-36.0) g/dl RDW (11.0-16.0) % Plt Count (160-400) X10*3/uL MPV (9.4-12.4) fL Immature Gran % (Auto) (0.0-0.4) % Neut % (Auto) (45-73) % Lymph % (Auto) (20-40) % [place] % (Auto) (2-11) % Eos % (Auto) (0-4) % Baso % (Auto) (0-2) % Lymph # (Auto) (1.2-4.9) X10*3/uL [place] # (Auto) (0.1-1.2) X10*3/uL Eos # (Auto) (0.0-0.4) X10*3/uL Baso # (Auto) (0.0-0.2) X10*3/uL Abs Immat Gran (auto) (0.00-0.03) X10*3/uL Absolute Neuts (auto) (2.0-8.3) x10*3/uL Absolute Nucleated RBC (0.0-0.012) X10*3/uL Nucleated RBC % (auto) (0.0-0.2) /100WBC VBG pH 7.33 (7.32-7.43) VBG pCO2 43 mmHg VBG pO2 104 mmHg VBG HCO3 22 (22-26) mmol/L VBG O2 Saturation 99.0 % VBG Base Excess -3.1 mmol/L Sodium (135-145) mmol/L Potassium (3.3-5.1) mmol/L Chloride (96-108) mmol/L Carbon Dioxide (22-29) mmol/L Anion Gap (12-20) BUN (9-16) mg/dL Creatinine (0.5-1.4) mg/dL Estim Creat Clear Calc Estimated GFR Random Glucose (60-115) mg/dL Calcium (8.4-10.2) mg/dL Total Bilirubin (0.0-1.0) mg/dL AST (5-37) U/L ALT (0-40) U/L Alkaline Phosphatase (39-117) U/L Total Protein (6.5-8.0) g/dL Albumin (3.5-5.0) g/dL Influenza Type A (PCR) (Negative) Influenza Type B (PCR) (Negative) RSV RNA Qual (PCR) (Negative) SARS-CoV-2 RNA (RT-PCR) (Negative) Independent Interpretation I performed an independent interpretation of an: Plain X-Ray Radiology Impression Discussion of test interpretation with radiology: I have reviewed the radiologist's reading. Critical Care Time Critical Care Time Critical Care Time: No Discharge Plan Discharge Clinical Impression: Asthma with acute exacerbation, Hypoxia Patient Disposition: Admitted As Inpatient Interventions: Admission Worksheet (ED) Last Done: 08/28/22 17:12 Discharge Date/Time: 08/28/22 16:30
[2022-08-27] MEDS: methylPREDNISolone Sod Succ 125 MG/2 ML VIAL IVPUSH (23:12)
[2022-08-27] MEDS: Morphine Sulfate 2 MG/ML CARTRIDGE IVPUSH (23:12)
[2022-08-27] MEDS: Magnesium Sulfate/H2O 2 GM/50 ML PIGGYBACK IV (23:12)
[2022-08-27 23:25] VITALS: BP 122/95; PULSE 138; RESP 22; O2SAT 96
[2022-08-27 23:28] LABS: MANUAL DIFF FLAG NO
[2022-08-27 23:29] LABS: Basophils Percent Auto 0.1 % (0-2); Eosinophils Percent Auto 0.1 % (0-4); Hematocrit 46.4 % (42.0-52.0); Hemoglobin 15.3 g/dl (14.0-18.0); Imm Gran Abs Auto 0.18 X10*3/uL (0.00-0.03); Imm Gran Pct Auto 0.9 % (0.0-0.4); Lymphocytes Absolute Auto 1.9 X10*3/uL (1.2-4.9); Lymphocytes Percent Auto 9.2 % (20-40); Mean Corpuscular Hemoglobin 27.4 pg (27.0-33.0); Monocytes Absolute Auto 0.9 X10*3/uL (0.1-1.2); Monocytes Percent Auto 4.4 % (2-11); Neutrophils Absolute Auto 17.7 x10*3/uL (2.0-8.3); Neutrophils Percent Auto 85.3 % (45-73); Platelet Count 344 X10*3/uL (160-400); Red Blood Count 5.59 X10*6/uL (4.60-5.80); Red Cell Distribution Width 13.2 % (11.0-16.0); White Blood Count 20.8 X10*3/uL (4.8-10.8)
[2022-08-27] MEDS: Albuterol Sulfate (0.083%) 2.5 MG/3 ML VIAL.NEB 10 MG INHALE (23:30)
[2022-08-27 23:31] VITALS: PULSE 136; O2SAT 95
[2022-08-27 23:44] LABS: Alanine Aminotransferase 23 U/L (0-40); Albumin Level 4.9 g/dL (3.5-5.0); Alkaline Phosphatase 67 U/L (39-117); Anion Gap 19 (12-20); Aspartate Amino Transferase 15 U/L (5-37); Bilirubin Total 0.5 mg/dL (0.0-1.0); Blood Urea Nitrogen 17 mg/dL (9-16); Calcium 9.6 mg/dL (8.4-10.2); Carbon Dioxide 21 mmol/L (22-29); Chloride 102 mmol/L (96-108); Creatinine Clr Calc Pharmacy 102.3; Estimated Glomerular Filt Rate > 60; Glucose Random 183 mg/dL (60-115); Potassium 4.6 mmol/L (3.3-5.1); Sodium 137 mmol/L (135-145); Total Protein 7.7 g/dL (6.5-8.0)
[2022-08-27 23:47] LABS: VBG Base Excess -3.1 mmol/L; VBG HCO3 22 mmol/L (22-26); VBG pCO2 43 mmHg; VBG pH 7.33 (7.32-7.43); VBG pO2 104 mmHg
[2022-08-27 23:48] LABS: Venous Blood Gas Refer to POC result
--- NOTE | 2022-08-27 23:58 | ECG_ITS ---
Test Reason : SOB Blood Pressure : / mmHG Vent. Rate : 109 BPM Atrial Rate : 109 BPM P-R Int : 130 ms QRS Dur : 082 ms QT Int : 318 ms P-R-T Axes : 068 001 057 degrees QTc Int : 428 ms Sinus tachycardia Otherwise normal ECG No previous ECGs available Referred By: Daniel Garcia Electronically Signed By:Lucas Lyn
[2022-08-28] VITALS (11 sets, daily range): BP systolic 110–151; BP diastolic 63–84; PULSE 84–119; RESP 14–26; TEMP 36.5–36.6; O2SAT 88–96
[2022-08-28 00:05] LABS: Influenza A PCR NEGATIVE (Negative); Influenza B PCR NEGATIVE (Negative); Resp Syncy Virus RNA Qual PCR NEGATIVE (Negative); SARS COV2 PCR INHOUSE NEGATIVE (Negative)
--- NOTE | 2022-08-28 00:22 | P.HPHOSP_ITS ---
History of Present Illness Date of Service: 08/28/22 Chief Complaint: Dyspnea This is a 37-year-old male with pertinent history of asthma who presents to the emergency department for evaluation of dyspnea and wheezing. Patient was recently admitted for acute asthma exacerbation and discharged on 08/27. Patient states that he felt fine upon discharge. He was outside for about 2 hours and then he went to fill his prescription for prednisone. Patient got home, showered and soon after he started having dyspnea and wheezing. Patient took his home nebulizer and p.o. prednisone without relief. The dyspnea pro gressed and was worse with ambulation. Patient unsure what his trigger was. States he does not know if he has pollen allergy. Patient denies chest discomfort, palpitations, abdominal pain, changes in urinary or bowel habits In the emergency department, patient was found to be satting 83% on room air. Review of Systems Constitutional: Constitutional: Reports no additional constitutional com plaints Cardiovascular: Cardiovascular: Reports dyspnea on exertion Respiratory: Respiratory: Reports dyspnea on exertion and Reports wheezing Gastrointestinal: Gastrointestinal: Reports no additional gastrointestinal complaints Genitourinary: Genitourinary: Reports no additional male genitourinary complaints Musculoskeletal: Musculoskeletal: Reports no additional musculoskeletal complaints Allergic/Immunologic: Allergic/Immunologic: Reports wheezing [facility] Medical History Asthma Pertinent family history: No family history of early CAD Social History Household Members: None Housing: House Do you presently have visiting nurse or other home services: No Patient Tobacco Use Status: Never used Tobacco Advance Directives: No Advance Directives Information Provided: Yes service: No Current occupational status: employed Meds Allergies Allergy/AdvReac Type Severity Reaction Status Date / Time Penicillins [PENICILLINS] Allergy Unknown UNKNOWN Verified 08/27/22 00:25 Active Medications: Current Medications Magnesium Sulfate (Magnesium Sulfate/H2o) 2 gm in 50 mls @ 25 mls/hr IV ONCE ON E Stop: 08/28/22 01:04 Last Admin: 08/27/22 23:12 Dose: 25 mls/hr Pharmacy Consult (Consult Rx Perform Med Rec) 1 each MISCELLANE ONCE PRN PRN Reason: Consult order Physical Exam Vital Signs and Narrative: Vital Signs: Last Vital Signs Temp 97 F 08/27/22 23:03 Pulse 136 H 08/27/22 23:31 Resp 22 H 08/27/22 23:25 BP 122/95 H 08/27/22 23:25 Pulse Ox 96 08/27/22 23:25 O2 Del Method Nasal Cannula 08/27/22 23:25 O2 Flow Rate 7 08/27/22 23:25 Oxygen Flow Rate 6 08/27/22 23:03 BMI result Body Mass Index 27.4 Middle-aged male lying in bed in mild distress on supplemental oxygen Neck supple, no JVD Tachycardic with regular rhythm, S1-S2 heard Bilateral wheezing without crackles Abdomen soft nontender, no guarding, no rigidity Patient is awake, alert and oriented to self, place, time and person ; no focal motor deficit Psych: Normal mood No pedal edema Results Labs 08/27/22 23:22 08/27/22 23:22 Labs: Laboratory Results - last 24 hr 08/27/22 08/27/22 08/27/22 23:22 23:22 23:22 MCV 83.0 MCH 27.4 MCHC 33.0 RDW 13.2 Plt Count 344 MPV 10.0 Immature Gran % (Auto) 0.9 H Neut % (Auto) 85.3 H Lymph % (Auto) 9.2 L [place] % (Auto) 4.4 Eos % (Auto) 0.1 Baso % (Auto) 0.1 Lymph # (Auto) 1.9 [place] # (Auto) 0.9 Eos # (Auto) 0.0 Baso # (Auto) 0.0 Abs Immat Gran (auto) 0.18 H Absolute Neuts (auto) 17.7 H Absolute Nucleated RBC 0.000 Nucleated RBC % (auto) 0.0 VBG pH VBG pCO2 VBG pO2 VBG HCO3 VBG O2 Saturation VBG Base Excess Anion Gap 19 Estim Creat Clear Calc 102.3 Estimated GFR > 60 Random Glucose 183 H Calcium 9.6 Total Bilirubin 0.5 AST 15 ALT 23 Alkaline Phosphatase 67 Total Protein 7.7 Albumin 4.9 Influenza Type A (PCR) NEGATIVE Influenza Type B (PCR) NEGATIVE RSV RNA Qual (PCR) NEGATIVE SARS-CoV-2 RNA (RT-PCR) NEGATIVE 08/27/22 23:25 MCV MCH MCHC RDW Plt Count MPV Immature Gran % (Auto) Neut % (Auto) Lymph % (Auto) [place] % (Auto) Eos % (Auto) Baso % (Auto) Lymph # (Auto) [place] # (Auto) Eos # (Auto) Baso # (Auto) Abs Immat Gran (auto) Absolute Neuts (auto) Absolute Nucleated RBC Nucleated RBC % (auto) VBG pH 7.33 VBG pCO2 43 VBG pO2 104 VBG HCO3 22 VBG O2 Saturation 99.0 VBG Base Excess -3.1 Anion Gap Estim Creat Clear Calc Estimated GFR Random Glucose Calcium Total Bilirubin AST ALT Alkaline Phosphatase Total Protein Albumin Influenza Type A (PCR) Influenza Type B (PCR) RSV RNA Qual (PCR) SARS-CoV-2 RNA (RT-PCR) Imaging Radiologist's Impressions: Impressions Chest X-Ray 08/27/22 23:50 IMPRESSION: Clear lungs. Assessment and Plan (1) Asthma with acute exacerbation: Status: Acute Plan This is a 37-year-old male with pertinent history of asthma who presents to the emergency department for evaluation of dyspnea and wheezing. #.? Acute hypoxemic respiratory failure due to acute exacerbation of asthma:? Will admit patient and initiate systemic steroids.? Scheduled and p.r.n. DuoNebs.? Continue home inhaler.? Continue supplemental oxygen and wean as tolerated. Will consult Pulm as patient with 2nd episode of exacerbation #.? Reactive leukocytosis: Defer antibiotics DVT prophylaxis:? None.? Patient is ambulatory Full code Regular diet Admit as inpatient and will require two night minimum hospital stay for supplemental oxygen Time Spent With Patient Time: Total time managing care of this patient today ____ minutes. Quality Stroke Does the patient have a stroke diagnosis?: No VTE Prior VTE?: No VTE Risk Level:: Medical - low VTE Device Contraindication: Treatment Not Indicated VTE Drug Contraindication: Treatment Not Indicated
[2022-08-28] MEDS: Albuterol Sulfate 2.5 MG/0.5 ML VIAL.NEB 5 MG INHALE (01:17)
--- NOTE | 2022-08-28 02:29 | PC.NURSE ---
med rec performed by this rn utilizing pt medical record
[2022-08-28 06:07] LABS: Basophils Percent Auto 0.1 % (0-2); Hematocrit 45.2 % (42.0-52.0); Hemoglobin 14.6 g/dl (14.0-18.0); Imm Gran Abs Auto 0.14 X10*3/uL (0.00-0.03); Imm Gran Pct Auto 0.7 % (0.0-0.4); Lymphocytes Absolute Auto 0.7 X10*3/uL (1.2-4.9); Lymphocytes Percent Auto 3.4 % (20-40); MANUAL DIFF FLAG SCAN; Mean Corpuscular HGB Conc 32.3 g/dl (31.0-36.0); Mean Corpuscular Hemoglobin 26.8 pg (27.0-33.0); Mean Corpuscular Volume 82.9 fL (80.0-98.0); Mean Platelet Volume 10.4 fL (9.4-12.4); Monocytes Absolute Auto 0.3 X10*3/uL (0.1-1.2); Monocytes Percent Auto 1.4 % (2-11); Neutrophils Absolute Auto 20.1 x10*3/uL (2.0-8.3); Neutrophils Percent Auto 94.4 % (45-73); Platelet Count 287 X10*3/uL (160-400); Red Blood Count 5.45 X10*6/uL (4.60-5.80); Red Cell Distribution Width 13.5 % (11.0-16.0); SCAN SMEAR FLAG 1; White Blood Count 21.3 X10*3/uL (4.8-10.8)
[2022-08-28 06:23] LABS: Anion Gap 20 (12-20); Blood Urea Nitrogen 16 mg/dL (9-16); Calcium 9.5 mg/dL (8.4-10.2); Carbon Dioxide 20 mmol/L (22-29); Chloride 103 mmol/L (96-108); Creatinine Clr Calc Pharmacy 109.4; Estimated Glomerular Filt Rate > 60; Glucose Random 171 mg/dL (60-115); Potassium 5.4 mmol/L (3.3-5.1); Sodium 138 mmol/L (135-145)
--- NOTE | 2022-08-28 06:40 | PC.NURSE ---
pt resting comfortably on stretcher. supplemental O2 weaned down to 2 LPM NC. pt tolerating well spo2 maintaining at 94%. pt sleeping on and off on stretcher. awakes to stimulations. pt declined multiple offers for blanket. pt calm and coopreative
--- NOTE | 2022-08-28 07:09 | PHA.MEDREC ---
Pharmacy Consult ? Medication Reconciliation Pharmacy has completed the medication reconciliation. Med rec completed by me 08/27/22, pt discharged and came back
[2022-08-28] MEDS: 0.9 % Sodium Chloride Flush 3 ML SYRINGE IVFLUSH ×3 (07:59→23:54)
--- NOTE | 2022-08-28 08:00 | PC.NURSE ---
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
[2022-08-28] MEDS: Albuterol/Iprat 2.5/0.5MG 3 ML AMPUL.NEB INHALE ×4 (08:34→19:53)
[2022-08-28 08:36] LABS: SLIDE REVIEW VERIFIED
[2022-08-28] MEDS: methylPREDNISolone Sod Succ 40 MG/ML VIAL IVPUSH (09:21)
--- NOTE | 2022-08-28 09:26 | PC.NURSE ---
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
--- NOTE | 2022-08-28 09:31 | MHC.CM.PN ---
Met with patient in regards to discharge planning. Patient lives alone, ambulates independently and had no services prior to coming to the hospital. Patient is not homebound and will not qualify for services at d/c. Patient denies having a PCP. He has tried to look at the [facility] website for providers that are accepting new patients. When he has called PCP offices they state they're not contacted with [facility], including [facility]. Patient will continue to look for a PCP. Patient received 2 Pfizer vaccines. Patient declines to complete HCP at this time. Patient has transported home when medically stable. Continue to monitor for d/c needs.
--- NOTE | 2022-08-28 10:13 | PC.NURSE ---
pt rang call denton stated he had increased sob after being given the steroids, pt states its like what happened at home yesterday he took prednisone at home and had increased wheezing where he needed to return here. listened to patients lungs had wheezing throughout- pt was speaking in short sentences. Pts O2 sat was 91% on room air, this nurse reapplied O2 and his o2 increased to 95% and pt stated he felt a little better- this nurse notified Dr. Ohara to come see the patient. will continue to monitor.
--- NOTE | 2022-08-28 12:20 | PC.NURSE ---
pt alert/oriented. Resp admin updraft at 11:33. Pt has been off O2 since updraft finished. Current O2 sat 94% RA. Pt reports decreased SOB. respirations currently even and non-laboured. Exp wheezing throughout. Will cont to monitor pt's O2 sat while on room air.
[2022-08-28 12:28] LABS: Amphetamine Screen Urine Not Detected (Not Detect); Barbiturates, Urine Not Detected (Not Detect); Benzodiazepines Screen Urine Not Detected (Not Detect); Cannabinoid Screen Urine Not Detected (Not Detect); Cocaine Screen Urine Not Detected (Not Detect); Fentanyl, urine Not Detected (Not Detect); Opiate Screen Urine POSITIVE (Not Detect); Phencyclidine Screen Urine Not Detected (Not Detect)
--- NOTE | 2022-08-28 14:50 | P.CONPL_ITS ---
History of Present Illness History of Present Illness Consult date: 08/28/22 Chief complaint: Dyspnea Narrative: 37-year-old gentleman, nonsmoker, with underlying history of asthma since ch ildhood and multiple first-degree relatives with asthma admitted on 08/27/2022 with an acute asthma exacerbation. Patient states that he has been evaluated in the emergency room a day prior to his admission was started on prednisone, however after he to prednisone he fell that his asthma worsened. Patient also had IV Solu-Medrol while in the hospital and states he had a similar reaction with worsening wheezing after Solu-Medrol injection. Patient does states that his symptoms a better controlled now, however, he continues to complain of significant wheezing. Patient also endorses multiple environmental allergies. He was never seen by nursing staffing coordinator previously, never had a pulmonary function test or allergy testing. Review of Systems Constitutional: Constitutional: Denies daytime sleepiness, Denies excessive sweating, Denies fatigue, Denies fever(s), Denies lethargy, Denies malaise, Denies night sweats, Denies snoring and Denies weight loss Eyes: Eyes: Denies blurry vision and Denies itchy eyes ENT: Denies nasal congestion, Denies post nasal drip, Denies sinus pain, Denies sinus pressure and Denies other ( Thrush) Cardiovascular: Cardiovascular: Denies chest pain, Denies pedal edema, Denies dyspnea, Reports dyspnea on exertion, Denies orthopnea and Denies paroxysmal nocturnal dyspnea Respiratory: Respiratory: Denies cough, Denies hemoptysis, Denies excessive phlegm production, Denies dyspnea, Reports dyspnea on exertion, Denies snoring and Reports wheezing Gastrointestinal: Gastrointestinal: Denies abdominal pain and Denies heartburn Musculoskeletal: Musculoskeletal: Denies myalgias, Denies arthralgias and Denies joint swelling Integumentary/Breasts: Skin/Breast: Denies rash Neurologic: Denies memory loss and Denies seizure-like activity Psychiatric: Psychiatric: Denies abnormal sleep pattern, Denies anxiety and Denies memory loss Endocrine: Endocrine: Denies excessive sweating, Denies fatigue and Denies heat intolerance Hematologic/Lymphatic: Hematologic/Lymphatic: Denies easy bruising Allergic/Immunologic: Allergic/Immunologic: Denies itchy eyes, Denies seasonal rhinorrhea and Reports wheezing PMFSH Past Medical History Medical History Asthma Social History Social History Household Members: None Housing: House Do you presently have visiting nurse or other home services: No Patient Tobacco Use Status: Never used Tobacco Smoked in Last 30 Days: No Use of substances other than those prescribed or required for medical reasons: No Advance Directives: No Advance Directives Information Provided: Yes Nutrition Risks: No Nutritional Risk service: No Current occupational status: employed Meds Allergies Allergy/AdvReac Type Severity Reaction Status Date / Time Penicillins [PENICILLINS] Allergy Unknown UNKNOWN Verified 08/27/22 00:25 Active Medications: Current Medications Acetaminophen (Acetaminophen 325 Mg Tablet) 650 mg PO Q6H PRN PRN Reason: Pain, Mild (Pain Scale 1-3) Acetaminophen (Acetaminophen Supp 650 Mg Supp.Rect) 650 mg [place] Q6H PRN PRN Reason: Pain, Mild (Pain Scale 1-3) Albuterol/Ipratropium (Albuterol/Iprat 2.5/0.5mg 3 Ml Ampul.Neb) 3 ml INHALE RQ4H WHILE AWAKE [facility] Last Admin: 08/28/22 14:35 Dose: 3 ml Albuterol/Ipratropium (Albuterol/Iprat 2.5/0.5mg 3 Ml Ampul.Neb) 3 ml INHALE Q4H PRN PRN Reason: Wheezing Dexamethasone Sodium Phosphate (Dexamethasone Sod Phosphate 4 Mg/Ml Vial) 4 mg IVPUSH BID [facility] Fluticasone/Vilanterol (Fluticasone/Vilanterol 200/25 Blst.W.Dev) 1 puff INHALE RDAILY [facility] Melatonin (Melatonin 3 Mg Tablet) 6 mg PO BEDTIME PRN PRN Reason: Insomnia Ondansetron HCl (Ondansetron Hcl 4 Mg/2 Ml Vial) 4 mg IVPUSH Q8H PRN PRN Reason: Nausea and Vomiting Pharmacy Consult (Consult Rx Perform Med Rec) 1 each MISCELLANE ONCE PRN PRN Reason: Consult order Sodium Chloride (0.9 % Sodium Chloride Flush 3 Ml Syringe) 3 ml IVFLUSH QSHIFT [facility] Last Admin: 08/28/22 07:59 Dose: 3 ml Physical Exam Vital Signs: Vital Signs: Last Vital Signs Temp 97.9 F 08/28/22 06:11 Pulse 109 H 08/28/22 14:36 Resp 18 08/28/22 14:36 BP 128/76 08/28/22 10:12 Pulse Ox 95 08/28/22 10:15 O2 Del Method Nasal Cannula 08/28/22 10:15 O2 Flow Rate 2 08/28/22 10:15 Oxygen Flow Rate 6 08/27/22 23:03 BMI result Body Mass Index 27.4 Const: General: no acute distress and alert Nutritional Appearance: not obese Orientation/consciousness: Other orientation findings ( oriented) HEENT: Head: Yes atraumatic Mouth: no other ( thrush) Throat: No postnasal drainage Eyes: General: appearance normal, both eyes and all related structures Sclerae: sclerae normal EOM: EOMs intact bilaterally Neck: Neck: Yes supple Lymphatic: no lymphadenopathy noted Resp: Effort & Inspection: normal respiratory effort and no use of accessory muscles Auscultation: wheezes expiratory wheezes (Bilateral) Cardio: Rate: regular rate Rhythm: regular rhythm Heart sounds: no gallops, no murmurs and no rubs GI: Palpation (GI): Soft to palpation and Other GI palpation findings present ( nontender) Skin: General skin exam: other ( warm) Rashes: no rashes Extrem: General: No clubbing, No cyanosis and No edema Results Laboratory Findings 08/28/22 05:35 08/28/22 05:35 Abnormal lab findings: Abnormal Labs 08/27/22 08/27/22 08/28/22 23:22 23:22 05:35 WBC 20.8 H 21.3 H MCH 26.8 L Immature Gran % (Auto) 0.9 H 0.7 H Neut % (Auto) 85.3 H 94.4 H Lymph % (Auto) 9.2 L 3.4 L [place] % (Auto) 1.4 L Lymph # (Auto) 0.7 L Abs Immat Gran (auto) 0.18 H 0.14 H Absolute Neuts (auto) 17.7 H 20.1 H Potassium Carbon Dioxide 21 L BUN 17 H Random Glucose 183 H Urine Opiates Screen 08/28/22 08/28/22 05:35 12:10 WBC MCH Immature Gran % (Auto) Neut % (Auto) Lymph % (Auto) [place] % (Auto) Lymph # (Auto) Abs Immat Gran (auto) Absolute Neuts (auto) Potassium 5.4 H Carbon Dioxide 20 L BUN Random Glucose 171 H Urine Opiates Screen POSITIVE H Assessment and Plan (1) Asthma with acute exacerbation: Status: Acute (2) Environmental allergies: Status: Acute Plan Impression: 37-year-old gentleman admitted with an acute asthma exacerbation, improving slowly. Appears to have had a reaction to Solu-Medrol/prednisone. Recommendations: Will switch Solu-Medrol to dexamethasone. Will start on Breo. Continue nebulized bronchodilators. Will benefit from an outpatient pulmonary follow-up. Time Spent With Patient Time: Total time managing care of this patient today ____ minutes. Procedures Date of Service Date of Service: 08/28/22
--- NOTE | 2022-08-28 14:59 | PC.NURSE ---
pt O2 sat continue to be 94/95 RA
[2022-08-28] MEDS: dexAMETHasone sod phosphate 4 MG/ML VIAL IVPUSH (22:07)
[2022-08-29] VITALS (10 sets, daily range): BP systolic 116–143; BP diastolic 59–88; PULSE 66–98; RESP 16–24; TEMP 35.9–36.7; O2SAT 91–98
[2022-08-29] MEDS: Albuterol/Iprat 2.5/0.5MG 3 ML AMPUL.NEB INHALE ×4 (08:35→20:19)
[2022-08-29] MEDS: dexAMETHasone sod phosphate 4 MG/ML VIAL IVPUSH ×2 (09:52→19:31)
[2022-08-29] MEDS: 0.9 % Sodium Chloride Flush 3 ML SYRINGE IVFLUSH ×2 (09:52→16:44)
--- NOTE | 2022-08-29 10:50 | P.PNIM_ITS ---
Subjective Subjective Date of Service: 08/29/22 Interval History: f/u on respiratory failure, hypoxia interval history:still relatively hypoxic with O2 of only 91 on 2 liter Physical Exam Vital Signs: Vital Signs: Last Vital Signs Temp 97.1 F 08/29/22 08:00 Pulse 82 08/29/22 08:00 Resp 24 H 08/29/22 08:00 BP 125/73 08/29/22 08:00 Pulse Ox 91 L 08/29/22 08:00 O2 Del Method Nasal Cannula 08/29/22 08:00 O2 Flow Rate 2 08/29/22 08:00 Oxygen Flow Rate 6 08/27/22 23:03 BMI result Body Mass Index 27.4 Const: Other: General: AO X 3, no acute distress Resp: melly wheezes CVS: S1,S2,RRR GI: +BS, NT, no distention Skin: No rash Neuro: motor grossly intact Psych: appropriate affect Objective Data Active Medications Acetaminophen (Acetaminophen 325 Mg Tablet) 650 mg PO Q6H PRN PRN Reason: Pain, Mild (Pain Scale 1-3) Acetaminophen (Acetaminophen Supp 650 Mg Supp.Rect) 650 mg [place] Q6H PRN PRN Reason: Pain, Mild (Pain Scale 1-3) Albuterol/Ipratropium (Albuterol/Iprat 2.5/0.5mg 3 Ml Ampul.Neb) 3 ml INHALE RQ4H WHILE AWAKE [facility] Last Admin: 08/29/22 08:35 Dose: 3 ml Documented By: CHUCK Albuterol/Ipratropium (Albuterol/Iprat 2.5/0.5mg 3 Ml Ampul.Neb) 3 ml INHALE Q4H PRN PRN Reason: Wheezing Dexamethasone Sodium Phosphate (Dexamethasone Sod Phosphate 4 Mg/Ml Vial) 4 mg IVPUSH BID [facility] Last Admin: 08/29/22 09:52 Dose: 4 mg Documented By: BITA Fluticasone/Vilanterol (Fluticasone/Vilanterol 200/25 Blst.W.Dev) 1 puff INHALE RDAILY [facility] Last Admin: 08/29/22 08:38 Dose: Not Given Documented By: CHUCK Non-Admin Reason: Patient Refused Melatonin (Melatonin 3 Mg Tablet) 6 mg PO BEDTIME PRN PRN Reason: Insomnia Ondansetron HCl (Ondansetron Hcl 4 Mg/2 Ml Vial) 4 mg IVPUSH Q8H PRN PRN Reason: Nausea and Vomiting Pharmacy Consult (Consult Rx Perform Med Rec) 1 each MISCELLANE ONCE PRN PRN Reason: Consult order Sodium Chloride (0.9 % Sodium Chloride Flush 3 Ml Syringe) 3 ml IVFLUSH QSHIFT [facility] Last Admin: 08/29/22 09:52 Dose: 3 ml Documented By: BITA Labs 08/28/22 05:35 08/28/22 05:35 Labs: Laboratory Results - last 24 hr 08/28/22 12:10 Urine Opiates Screen POSITIVE H Urine Fentanyl Screen Not Detected Ur Barbiturates Screen Not Detected Ur Phencyclidine Scrn Not Detected Ur Amphetamines Screen Not Detected U Benzodiazepines Scrn Not Detected Urine Cocaine Screen Not Detected U Marijuana (THC) Screen Not Detected Assessment and Plan (1) Asthma with acute exacerbation: Status: Acute Plan 37/m mild intermittent asthma with acute exacerbation with some apparent reaction to to solumedrol and Prednisone. Plan: Dexamathsone as recommended by Pulmonology along with Taya, O2 as needed and outpatient pulmonology follow up, discharge when Off O2 Time Spent With Patient Time: Total time managing care of this patient today ____ minutes. Quality Stroke Does the patient have a stroke diagnosis?: No VTE Prior VTE?: No VTE Risk Level:: Medical - low VTE Device Contraindication: Treatment Not Indicated VTE Drug Contraindication: Treatment Not Indicated
--- NOTE | 2022-08-29 12:35 | P.CDIM_ITS ---
PROVIDER RESPONSE TEXT: To clarify, the appropriate diagnosis supported by the clinical indicators: Mild intermittent: with acute exacerbation QUERY TEXT: PHYSICIAN'S DOCUMENTATION REQUEST Date of Query: 08/29/2022 10:19 AM EDT Patient Name: Ash Hager Admit Date: 08/28/2022 Dear Joey Ohara, A review of the medical record indicates additional documentation may be needed. Please review below and update the documentation accordingly. The diagnosis of asthma was documented in the record on 08/28/22. Additional clinical indicators from the record include: Per H&P 08/28/22: admitted for acute asthma exacerbation and discharged on 08/27 started having dyspnea and wheezing. Patient took his home nebulizer and p.o. prednisone without reli ef Treated with oxygen 6L NC, systemic steroids, Duonebs Assessment: acute exacerbation of asthma Based on the above, please clarify in the Progress Notes further specificity regarding the type and a cuity of the asthma: Mild intermittent Please specify if with or without acute exacerbation or status asthmaticus Mild persistent Please specify if with or without acute exacerbation or status asthmaticus Moderate persistent Please specify if with or without acute exacerbation or status asthmaticus Severe persistent Please specify if with or without acute exacerbation or status asthmaticus Exercise induced Please specify if with or without acute exacerbation or status asthmaticus Chronic obstructive asthma and indicate if with acute lower respiratory infection Please specify if with or without acute exacerbation or status asthmaticus Asthma with underlying COPD and indicate if with acute lower respiratory infection Please specify if with or without acute exacerbation or status asthmaticus Other (explain) Clinically unable to determine (explain) Thank you, Heidi Stoner RN Use of terms such as suspected, likely, concern for, or probable (associated with a specific diagnosi s that is being evaluated, monitored, or treated as if it exists) are acceptable and can be coded in the inpatient se tting, when documented at the time of discharge. Please use your independent medical judgment in providing your response. THIS QUERY IS PART OF THE PERMANENT MEDICAL RECORD
[2022-08-30] MEDS: 0.9 % Sodium Chloride Flush 3 ML SYRINGE IVFLUSH ×2 (00:01→07:48)
[2022-08-30 03:39] VITALS: BP 105/59; PULSE 71; RESP 14; TEMP 36.3; O2SAT 93
--- NOTE | 2022-08-30 05:20 | PC.NURSE ---
AM VSS. Pt A&OX4, pleasant and cooperative. LS dim with insp and exp wheezes scattered throughout. Pt on RA with sats 93%. Denies SOB. Plan-continue Decadron and resp treatments. Possible discharge. Will continue to monitor.
[2022-08-30 07:24] VITALS: BP 133/75; PULSE 80; RESP 18; TEMP 36.6; O2SAT 96
[2022-08-30] MEDS: dexAMETHasone sod phosphate 4 MG/ML VIAL IVPUSH (07:48)
--- NOTE | 2022-08-30 07:59 | P.DS_ITS ---
DS: Providers Provider Date of Service: 08/30/22 Date of admission: 08/28/22 00:20 Primary care physician: Unknown Physician Consults: 08/28/22 00:27 Consult to Pulmonology Routine Consulting Provider: [facility] Reason for consultation: asthma exacerbation DS: Diagnosis Discharge Diagnosis (1) Asthma with acute exacerbation: Status: Acute DS: Summary Hospital Course Hospital Course: Chief Complaint: Dyspnea This is a 37-year-old male with pertinent history of asthma who presents to the emergency department for evaluation of dyspnea and wheezing.? Patient was recently admitted for acute asthma exacerbation and discharged on 08/27.? Patient states that he felt fine upon discharge.? He was outside for about 2 hours and then he went to fill his prescription for prednisone.? Patient got home, showered and soon after he started having dyspnea and wheezing.? Patient took his home nebulizer and p.o. prednisone without relief.? The dyspnea progressed and was worse with ambulation.? Patient unsure what his trigger was.? States he does not know if he has pollen allergy.? Patient denies chest discomfort, palpitations, abdominal pain, changes in urinary or bowel habits In the emergency department, patient was found to be satting 83% on room air. Hospital course: Patient was admitted due to acte hypoxic respiratory failure related to asthma, he had been discharged just a day earlier for similar presentation and prescribed prednisone and reportedly after taking prednisone become more short of breath and wheezing even more and therefore came back to the ED, and when given IV solumedrol in ED, he experienced similar phenomenon as with the Prednisone and deemed that he is alergic to both Prednisone and Solumedrol. Pulmonolgist adivised which cause no problem. His hypoxia has resolved, he is no longer on oxygen, wheezing nearly all gone and will be discharge home with inhalers as before and Dexamethasone for acute exacerbation of asthma with underlying mild intermitent asthma. Final diagnes Hypoxic respiratory failure mild intermittent asthma with acute exacerbation allergic reaction to prednisone and Solu-Medrol Time Spent with Patient Time attestation: Total time managing care of this patient today ____ minutes. Discharge coordination time: Greater than 30 minutes Quality: Safe Use of Opioids Does Pt have an Active Cancer Diagnosis on the Problem List?: No Quality: Stroke Does the patient have a stroke diagnosis?: No Physical Exam Vital Signs: Vital Signs: Last Vital Signs Temp 98 F 04/28/23 07:24 Pulse 80 08/30/22 07:24 Resp 18 08/30/22 07:24 BP 133/75 08/30/22 07:24 Pulse Ox 96 08/30/22 07:24 O2 Del Method Room Air 08/30/22 07:24 O2 Flow Rate 2 08/29/22 15:45 Oxygen Flow Rate 6 08/27/22 23:03 BMI result Body Mass Index 27.4 Discharge Plan Discharge Anticipated Discharge Date/Time: 08/30/22 07:56 Patient Disposition: Home, Self-Care Discharge Diagnosis: Acute exacerbation of asthma Referrals: Physician,Unknown J [Primary Care Provider] - 1 Week Discharge Medications: New dexamethasone 6 mg tablet 6 mg PO DAILY Qty: 3 0RF Continued albuterol sulfate 2.5 mg /3 mL (0.083 %) solution for nebulization 2.5 mg inhalation Q6H PRN (Reason: wheezing) Qty: 120 0RF albuterol sulfate 90 mcg/actuation HFA aerosol inhaler 2 puff INHALATION Q6H PRN (Reason: wheezing) Qty: 1 0RF loratadine [Claritin] 10 mg Tablet 10 mg PO DAILY Qty: 30 0RF Discontinued prednisone 20 mg tablet 40 mg PO DAILY Qty: 8 0RF Diet: Advance to usual diet Activity on Discharge: As tolerated Stand Alone Forms: Patient Portal Discharge page Care Plan Goals: Full recovery from asthma Health Concerns: asthma Plan of Treatment: take dexamethasone and use inhalers as directed Assessment: as above
[2022-08-30] MEDS: Albuterol/Iprat 2.5/0.5MG 3 ML AMPUL.NEB INHALE (08:11)
[2022-08-30 08:18] VITALS: PULSE 80; RESP 18; O2SAT 96
--- NOTE | 2022-08-30 11:10 | MHC.CM.PN ---
pt dcd home no skilled servcies
== END 2022-08-30 11:29 | disposition home or self-care (01) | DRG 133 ==
LOC: HO.ED 23:57 → HO.EDOVER 08-28 00:56 → HO.S3 08-28 15:30
PROVIDERS: Internal Medicine Pulmonary Disease; Physician Assistant; Admitting Provider Student in an Organized Health Care Education/Training Program; Emergency Provider Emergency Medicine Emergency Medical Services; PCP Internal Medicine; Visit Provider Internal Medicine
DX: J96.01 Acute respiratory failure with hypoxia (principal); J45.21 Mild intermittent asthma with (acute) exacerbation; Z20.822 Contact with and (suspected) exposure to COVID-19; Z88.0 Allergy status to penicillin; Z88.8 Allergy status to other drugs, medicaments and biological substances; Z79.899 Other long term (current) drug therapy; T38.0X5A Adverse effect of glucocorticoids and synthetic analogues, initial encounter; Y92.9 Unspecified place or not applicable
CPT/HCPCS: 0241U; 36415; 71045; 80048; 80053; 80307; 82803; 85025; 93005; 94640; 99285; J1100; J2270; J2920; J2930; J3475

== ENCOUNTER 2023-02-20 09:17 | Inpatient (IN) | payer OTHER, SELFPAY ==
[2023-02-20] VITALS (16 sets, daily range): BP systolic 117–175; BP diastolic 67–108; PULSE 107–147; RESP 12–35; TEMP 36.4–36.6; O2SAT 68–98; BMI 29.1
--- NOTE | 2023-02-20 09:19 | ED.SOB ---
HPI - SOB/Dyspnea General Chief Complaint: Dyspnea Stated Complaint: asthma Time Seen by Provider: 02/20/23 09:17 Source: patient Mode of arrival: ambulatory Limitations: no limitations History of Present Illness HPI Narrative: 37-year-old male who presents emergency department for evaluation of shortness of breath. Patient states this morning he took his allergy medication and then took a Motrin. He states 1 hour after taking Motrin he began to feel short of breath. He took his allergy medicine again. his shortness of breath got worse and a work colleague brought him to the emergency department. On presentation, the patient was in severe respiratory distress, he was diaphoretic and tachypneic. He is tripoding, he is talking in 1 word sentences. Patient was seen in the emergency department on 08/27/2022. At that time he was in moderate respiratory distress. He was treated with albuterol 10 mg, 5 mg and then a DuoNeb. He also received dexamethasone, Solu-Medrol and magnesium. He was also given morphine 2 mg IV. Related Data Home Medications Medication Instructions Recorded Confirmed fluticasone 250 mcg-salmeterol 50 1 ea inhalation BID 02/20/23 02/20/23 mcg/dose blistr powdr for inhalation (Advair Diskus) tiotropium bromide 2.5 2 inh inhalation DAILY 02/20/23 02/20/23 mcg/actuation mist for inhalation (Spiriva Respimat) Previous Rx's Medication Instructions Recorded albuterol sulfate 90 mcg/actuation 2 puff inhalation Q6H PRN wheezing 08/27/22 aerosol inhaler #1 g loratadine 10 mg tablet (Claritin) 10 mg PO DAILY #30 tabs 08/27/22 ipratropium 0.5 mg-albuterol 3 mg 3 ml inhalation Q4H PRN Wheezing 08/30/22 (2.5 mg base)/3 mL nebulization #90 mL soln epinephrine 0.3 mg/0.3 mL 0.3 mg (0.3 mL) IM Q4H PRN 02/20/23 injection, auto-injector (EpiPen anaphylaxis,shortness of breath #2 2-Luis) ea methylprednisolone 4 mg tablets in 4 mg PO DAILY #21 ea 02/20/23 a dose pack (Medrol (Luis)) Allergies Allergy/AdvReac Type Severity Reaction Status Date / Time methylprednisolone Allergy Severe Shortness Verified 08/30/22 08:06 [From Solu-Medrol] of Breath and wheezing prednisone Allergy Severe Wheezing Verified 08/30/22 08:06 Penicillins [PENICILLINS] Allergy Unknown UNKNOWN Verified 08/27/22 00:25 Review of Systems Review of Systems: Yes all other systems are reviewed and are negative PMFSH Past Medical History Medical History Environmental allergies Asthma Social History Social History Household Members: None Housing: House Do you presently have visiting nurse or other home services: No Patient Tobacco Use Status: Never used Tobacco Advance Directives: No Advance Directives Information Provided: Yes service: No Current occupational status: employed Physical Exam Vital Signs: Vital Signs: Last Vital Signs Temp 97.6 F 02/20/23 15:10 Pulse 113 H 02/20/23 16:31 Resp 18 02/20/23 16:31 BP 117/79 02/20/23 15:10 Pulse Ox 96 02/20/23 15:10 O2 Del Method Nasal Cannula 02/20/23 15:10 O2 Flow Rate 2 02/20/23 15:10 FiO2 100 02/20/23 09:31 BMI result Body Mass Index 29.1 Vital signs revealed tachycardia and tachypnea. Patient had an elevated blood pressure. O2 saturation on room air was 68% Medications Administered Generic Name Dose Route Start Last Admin Trade Name Freq PRN Reason Stop Dose Admin Albuterol Sulfate 2.5 mg 02/20/23 16:00 02/20/23 16:29 Albuterol Sulfate (0.083%) 2.5 Mg/3 Ml Vial.Neb INHALE 2.5 mg RQ4H WHILE AWAKE EDWARD Administration Dexamethasone Sodium Phosphate 6 mg 02/20/23 14:05 02/20/23 15:08 Dexamethasone Sod Phosphate 4 Mg/Ml Vial IVPUSH 6 mg BID EDWARD Administration Sodium Chloride 3 ml 02/20/23 16:00 02/20/23 15:08 0.9 % Sodium Chloride Flush 3 Ml Syringe IVFLUSH 3 ml QSHIFT EDWARD Administration Discontinued Medications Generic Name Dose Route Start Last Admin Trade Name Freq PRN Reason Stop Dose Admin Albuterol Sulfate 7.5 mg/ 10 mg 02/20/23 09:44 02/20/23 09:45 Albuterol Sulfate 2.5 mg INHALE 02/20/23 09:45 10 mg ONCE ONE Administration Albuterol Sulfate 7.5 mg/ 10 mg 02/20/23 09:46 02/20/23 09:46 Albuterol Sulfate 2.5 mg INHALE 02/20/23 09:47 10 mg ONCE ONE Administration Albuterol/Ipratropium 3 ml 02/20/23 10:26 02/20/23 10:29 Albuterol/Iprat 2.5/0.5mg 3 Ml Ampul.Neb INHALE 02/20/23 10:27 3 ml ONCE ONE Administration Albuterol Sulfate 2.5 mg/ 0 mg 02/20/23 13:27 02/20/23 13:30 Albuterol/Ipratropium 3 ml INHALE 02/20/23 13:28 1 dose ONCE ONE Administration Epinephrine 0.3 mg 02/20/23 10:11 02/20/23 10:23 Epinephrine 1 Mg/Ml Vial IM 02/20/23 10:12 0.3 mg STAT STA Administration Magnesium Sulfate 2 gm in 50 mls @ 25 mls/hr 02/20/23 10:11 02/20/23 12:29 Magnesium Sulfate/H2o IV 02/20/23 12:10 Infused ONCE ONE Infusion Methylprednisolone Sodium Succinate 125 mg 02/20/23 09:19 02/20/23 09:51 Methylprednisolone Sod Succ 125 Mg/2 Ml Vial IVPUSH 02/20/23 09:20 125 mg ONCE ONE Administration Morphine Sulfate 4 mg 02/20/23 09:19 02/20/23 09:52 Morphine Sulfate 4 Mg/Ml Cartridge IVPUSH 02/20/23 09:20 4 mg ONCE STA Administration Protocol Morphine Sulfate 2 mg 02/20/23 09:38 02/20/23 09:52 Morphine Sulfate 2 Mg/Ml Cartridge IVPUSH 02/20/23 09:39 2 mg ONCE ONE Administration Protocol Morphine Sulfate 2 mg 02/20/23 09:50 02/20/23 09:55 Morphine Sulfate 2 Mg/Ml Cartridge IVPUSH 02/20/23 09:51 2 mg ONCE ONE Administration Protocol Medical Decision Making Medical Decision Making MDM Narrative: 37-year-old male who presents emergency department for evaluation of shortness of breath. Patient states this morning he took his allergy medication and then took a Motrin. He states 1 hour after taking Motrin he began to feel short of breath. He took his allergy medicine again. his shortness of breath got worse and a work colleague brought him to the emergency department. On presentation, the patient was in severe respiratory distress, he was tripoding,diaphoretic and tachypneic. patient was given epinephrine 0.3 mg IM, Solu-Medrol 125 mg IV, magnesium 2 g IV, albuterol 10 mg nebulizer x2, DuoNeb x1 and placed on BiPAP. 12:52 patient's laboratory evaluation was unremarkable. chest x-ray was normal pain patient significantly improved after being on BiPAP for several hours. Patient's presentation is consistent with anaphylaxis secondary to ibuprofen causing acute asthma exacerbation. Patient was advised to avoid NSAIDs. lung exam did reveal wheezing, the patient's O2 saturation dropped to 88% on room air therefore I will get the patient admitted for further management of asthma exacerbation. 15:15 patient's lactic acid was initially 3.2 increased to 6.3, the patient has required large doses of albuterol in order to treat his asthma exacerbation, these elevations are not due to sepsis but are secondary to albuterol use. Differential Diagnosis Differential Diagnoses: The differential diagnosis associated with the presentation includes differential diagnosis includes was not limited to asthma exacerbation, allergic reaction, pneumonia, pneumothorax, electrolyte abnormalities, Admission/Observation Consideration of admission/observation: Escalation of care including admission/observation considered Lab Data MDM Lab Attestation statement: I reviewed the patient's lab results. my interpretation patient's laboratory evaluation as follows: CBC was normal. Venous pH 7.30 reflecting acidemia, pCO2 was normal 53. Glucose was elevated 129, lactic acid elevated 3.2. COVID-19 was negative. 02/20/23 09:24 02/20/23 09:24 Labs: Lab Results 02/20/23 02/20/23 02/20/23 Range/Units 09:24 10:42 10:44 WBC 10.3 (4.8-10.8) X10*3/uL RBC 6.17 H (4.60-5.80) X10*6/uL Hgb 16.5 (14.0-18.0) g/dl Hct 50.1 (42.0-52.0) % MCV 81.2 (80.0-98.0) fL MCH 26.7 L (27.0-33.0) pg MCHC 32.9 (31.0-36.0) g/dl RDW 13.2 (11.0-16.0) % Plt Count 352 (160-400) X10*3/uL MPV 9.9 (9.4-12.4) fL Immature Gran % (Auto) 0.3 (0.0-0.4) % Neut % (Auto) 35.1 L (45-73) % Lymph % (Auto) 39.8 (20-40) % [place] % (Auto) 4.6 (2-11) % Eos % (Auto) 19.7 H (0-4) % Baso % (Auto) 0.5 (0-2) % Lymph # (Auto) 4.1 (1.2-4.9) X10*3/uL [place] # (Auto) 0.5 (0.1-1.2) X10*3/uL Eos # (Auto) 2.0 H (0.0-0.4) X10*3/uL Baso # (Auto) 0.1 (0.0-0.2) X10*3/uL Abs Immat Gran (auto) 0.03 (0.00-0.03) X10*3/uL Absolute Neuts (auto) 3.6 (2.0-8.3) x10*3/uL Absolute Nucleated RBC 0.000 (0.0-0.012) X10*3/uL Nucleated RBC % (auto) 0.0 (0.0-0.2) /100WBC Smear Tech's Comments VERIFIED PT 12.0 (11.1-13.3) SEC INR 1.0 (0.9-1.1) APTT 26.4 (26.0-36.4) SEC VBG pH (7.32-7.43) VBG pCO2 mmHg VBG pO2 mmHg VBG HCO3 (22-26) mmol/L VBG O2 Saturation % VBG Base Excess mmol/L Sodium 142 (135-145) mmol/L Potassium 4.1 D (3.3-5.1) mmol/L Chloride 106 (96-108) mmol/L Carbon Dioxide 23 (22-29) mmol/L Anion Gap 17 (12-20) BUN 11 (9-16) mg/dL Creatinine 0.91 (0.5-1.4) mg/dL Estim Creat Clear Calc TNP Estimated GFR > 60 Random Glucose 129 H (60-115) mg/dL Lactic Acid 3.2 H* (0.5-2.0) mmol/L Lactic Acid F/U @ 2Hr (0.5-2.0) mmol/L Calcium 10.1 D (8.4-10.2) mg/dL Magnesium 2.3 (1.6-2.6) mg/dL Total Bilirubin 0.6 (0.0-1.0) mg/dL AST 21 (5-37) U/L ALT 33 (0-40) U/L Alkaline Phosphatase 76 (39-117) U/L Total Protein 8.1 H (6.5-8.0) g/dL Albumin 4.5 (3.5-5.0) g/dL Lipase 71 (8-78) U/L COVID-19 (LEIGH) Negative (Negative) COVID-19 Clin Com See Note 02/20/23 02/20/23 Range/Units 10:47 15:02 WBC (4.8-10.8) X10*3/uL RBC (4.60-5.80) X10*6/uL Hgb (14.0-18.0) g/dl Hct (42.0-52.0) % MCV (80.0-98.0) fL MCH (27.0-33.0) pg MCHC (31.0-36.0) g/dl RDW (11.0-16.0) % Plt Count (160-400) X10*3/uL MPV (9.4-12.4) fL Immature Gran % (Auto) (0.0-0.4) % Neut % (Auto) (45-73) % Lymph % (Auto) (20-40) % [place] % (Auto) (2-11) % Eos % (Auto) (0-4) % Baso % (Auto) (0-2) % Lymph # (Auto) (1.2-4.9) X10*3/uL [place] # (Auto) (0.1-1.2) X10*3/uL Eos # (Auto) (0.0-0.4) X10*3/uL Baso # (Auto) (0.0-0.2) X10*3/uL Abs Immat Gran (auto) (0.00-0.03) X10*3/uL Absolute Neuts (auto) (2.0-8.3) x10*3/uL Absolute Nucleated RBC (0.0-0.012) X10*3/uL Nucleated RBC % (auto) (0.0-0.2) /100WBC Smear Tech's Comments PT (11.1-13.3) SEC INR (0.9-1.1) APTT (26.0-36.4) SEC VBG pH 7.30 L (7.32-7.43) VBG pCO2 53 mmHg VBG pO2 122 mmHg VBG HCO3 27 H (22-26) mmol/L VBG O2 Saturation 100.0 % VBG Base Excess -0.4 mmol/L Sodium (135-145) mmol/L Potassium (3.3-5.1) mmol/L Chloride (96-108) mmol/L Carbon Dioxide (22-29) mmol/L Anion Gap (12-20) BUN (9-16) mg/dL Creatinine (0.5-1.4) mg/dL Estim Creat Clear Calc Estimated GFR Random Glucose (60-115) mg/dL Lactic Acid (0.5-2.0) mmol/L Lactic Acid F/U @ 2Hr 6.3 H* (0.5-2.0) mmol/L Calcium (8.4-10.2) mg/dL Magnesium (1.6-2.6) mg/dL Total Bilirubin (0.0-1.0) mg/dL AST (5-37) U/L ALT (0-40) U/L Alkaline Phosphatase (39-117) U/L Total Protein (6.5-8.0) g/dL Albumin (3.5-5.0) g/dL Lipase (8-78) U/L COVID-19 (LEIGH) (Negative) COVID-19 Clin Com Independent Interpretation I performed an independent interpretation of an: Plain X-Ray Interpretation: My interpretation patient's one-view chest x-ray is as follows: No acute disease Radiology Impression Discussion of test interpretation with radiology: I have reviewed the radiologist's reading. Radiologist Impression: XR chest 1V IMPRESSION: Clear lungs. Dictated By: Jaime Srivastava MD Independent Historian Clinical information obtained from an independent historian. History obtained from or confirmed by: EMS Prescription Management I considered prescription management with: Other ( steroid) Chronic Conditions Patient?s care impacted by: Other ( asthma) Critical Care Time Critical Care Time Critical Care Time: Yes Total Critical Care Time: 80 Attestation: Critical Care: The patient was critically ill with a high probability of imminent or life threatening deterioration. I spent greater than 30 minutes of discontinuous time evaluating the patient,delivering critical care at the bedside, discussing and evaluating pertinent data with consultants. Critical care time does not include time spent performing separately billable procedures or teaching. Total time spent performing critical care was 80 minutes. Discharge Plan Discharge Clinical Impression: Asthma exacerbation, Hypoxic Anaphylaxis Qualifiers: Encounter type: initial encounter Qualified Code(s): T78.2XXA - Anaphylactic shock, unspecified, initial encounter Patient Disposition: Admitted As Inpatient Additional Instructions:
[2023-02-20 09:30] LABS: Basophils Absolute Auto 0.1 X10*3/uL (0.0-0.2); Basophils Percent Auto 0.5 % (0-2); Eosinophils Percent Auto 19.7 % (0-4); Hematocrit 50.1 % (42.0-52.0); Hemoglobin 16.5 g/dl (14.0-18.0); Imm Gran Abs Auto 0.03 X10*3/uL (0.00-0.03); Imm Gran Pct Auto 0.3 % (0.0-0.4); Lymphocytes Absolute Auto 4.1 X10*3/uL (1.2-4.9); Lymphocytes Percent Auto 39.8 % (20-40); MANUAL DIFF FLAG SCAN; Mean Corpuscular HGB Conc 32.9 g/dl (31.0-36.0); Mean Corpuscular Hemoglobin 26.7 pg (27.0-33.0); Mean Corpuscular Volume 81.2 fL (80.0-98.0); Mean Platelet Volume 9.9 fL (9.4-12.4); Monocytes Absolute Auto 0.5 X10*3/uL (0.1-1.2); Monocytes Percent Auto 4.6 % (2-11); Neutrophils Absolute Auto 3.6 x10*3/uL (2.0-8.3); Neutrophils Percent Auto 35.1 % (45-73); Platelet Count 352 X10*3/uL (160-400); Red Blood Count 6.17 X10*6/uL (4.60-5.80); Red Cell Distribution Width 13.2 % (11.0-16.0); SCAN SMEAR FLAG 1; White Blood Count 10.3 X10*3/uL (4.8-10.8)
[2023-02-20] MEDS: Albuterol Sulfate 7.5 MG, Albuterol Sulfate (0.083%) 2.5 MG 10 MG INHALE ×2 (09:45→09:46)
[2023-02-20 09:47] LABS: Alanine Aminotransferase 33 U/L (0-40); Albumin Level 4.5 g/dL (3.5-5.0); Alkaline Phosphatase 76 U/L (39-117); Anion Gap 17 (12-20); Aspartate Amino Transferase 21 U/L (5-37); Bilirubin Total 0.6 mg/dL (0.0-1.0); Blood Urea Nitrogen 11 mg/dL (9-16); Calcium 10.1 mg/dL (8.4-10.2); Carbon Dioxide 23 mmol/L (22-29); Chloride 106 mmol/L (96-108); Estimated Glomerular Filt Rate > 60; Glucose Random 129 mg/dL (60-115); Lipase 71 U/L (8-78); Magnesium 2.3 mg/dL (1.6-2.6); Potassium 4.1 mmol/L (3.3-5.1); Sodium 142 mmol/L (135-145); Total Protein 8.1 g/dL (6.5-8.0)
[2023-02-20] MEDS: methylPREDNISolone Sod Succ 125 MG/2 ML VIAL IVPUSH (09:51)
[2023-02-20] MEDS: Morphine Sulfate 4 MG/ML CARTRIDGE IVPUSH (09:52)
[2023-02-20] MEDS: Morphine Sulfate 2 MG/ML CARTRIDGE IVPUSH ×2 (09:52→09:55)
[2023-02-20 09:56] LABS: SLIDE REVIEW VERIFIED
--- NOTE | 2023-02-20 09:58 | PC.NURSE ---
respiratory distress from waiting room, patient reports taking his allergy medications and motrin this morning and began having a difficult time breathing. oxygen was in the 60's on room air, diaphoretic. respiratory to bedside and placed patient on bipap. patient's color appears to have improved on bipap. continues to state it feels like an elephant is sitting on my chest but reports he is beginning to feel better than when he arrived.
[2023-02-20] MEDS: Magnesium Sulfate/H2O 2 GM/50 ML PIGGYBACK IV (10:23)
[2023-02-20] MEDS: EPINEPHrine 1 MG/ML VIAL 0.3 MG IM (10:23)
--- NOTE | 2023-02-20 10:25 | PC.NURSE ---
reporting improvement, able to converse with staff with less effort. respirations now 18-24, states he is beginning to feel better. color continues to improve
[2023-02-20] MEDS: Albuterol/Iprat 2.5/0.5MG 3 ML AMPUL.NEB INHALE (10:29)
[2023-02-20 10:52] LABS: Venous Blood Gas Refer to POC result
[2023-02-20 10:53] LABS: VBG Base Excess -0.4 mmol/L; VBG HCO3 27 mmol/L (22-26); VBG pCO2 53 mmHg; VBG pO2 122 mmHg
[2023-02-20 11:02] LABS: Lactic Acid 3.2 mmol/L (0.5-2.0)
[2023-02-20 11:03] LABS: Partial Thromboplastin Time 26.4 SEC (26.0-36.4)
[2023-02-20 11:09] LABS: COVID-19 Test Negative (Negative); IDNOW Serial# BCCEAD1C
--- NOTE | 2023-02-20 11:34 | PC.NURSE ---
respiratory at bedside attempting to take patient off bipap
--- NOTE | 2023-02-20 12:01 | PC.NURSE ---
placed on 4L nasal cannula, 88-90%.
[2023-02-20 12:48] LABS: Reflex Lactate? Lactic Acid Added
[2023-02-20] MEDS: Albuterol Sulfate 2.5 MG, Albuterol/Iprat 2.5/0.5MG 3 ML 3 ML INHALE (13:30)
--- NOTE | 2023-02-20 13:44 | PM.IMHP ---
History of Present Illness Date of Service: 02/20/23 Chief Complaint: shortness of breath A 37-year-old male, with a relevant medical history of moderate persistent asthma, arrived at the emergency department (ED) experiencing severe shortness of breath. He reported that his breathing difficulties began shortly after taking his allergy medication and ibuprofen. Upon arrival, he exhibited tachypnea, diaphoresis, and had reportedly shown an oxygen saturation as low as 60%, necessitating the use of BiPAP therapy. The patient received treatment including epinephrine, intravenous solumedrol, nebulized bronchodilators, and intravenous magnesium. Thankfully, his condition has improved, and he has been successfully weaned off BiPAP. However, he still presents with diffuse wheezing and will be admitted for closer check Review of Systems Review of Systems: shortness of breath, wheezing... Yes all other systems are reviewed and are negative PMFSH Medical History Environmental allergies Asthma Social History Household Members: None Housing: House Do you presently have visiting nurse or other home services: No Patient Tobacco Use Status: Never used Tobacco Advance Directives: No Advance Directives Information Provided: Yes service: No Current occupational status: employed Meds Allergies Allergy/AdvReac Type Severity Reaction Status Date / Time methylprednisolone Allergy Severe Shortness Verified 08/30/22 08:06 [From Solu-Medrol] of Breath and wheezing prednisone Allergy Severe Wheezing Verified 08/30/22 08:06 Penicillins [PENICILLINS] Allergy Unknown UNKNOWN Verified 08/27/22 00:25 Home Medications Medication Instructions Recorded Confirmed Last Taken Type fluticasone 250 mcg-salmeterol 50 1 ea inhalation BID 02/20/23 02/20/23 Unknown History mcg/dose blistr powdr for inhalation (Advair Diskus) tiotropium bromide 2.5 2 inh inhalation DAILY 02/20/23 02/20/23 Unknown History mcg/actuation mist for inhalation (Spiriva Respimat) Physical Exam Vital Signs and Narrative: Vital Signs: Last Vital Signs Temp 97.6 F 02/20/23 13:07 Pulse 108 H 02/20/23 13:32 Resp 22 H 02/20/23 13:32 BP 134/91 H 02/20/23 13:07 Pulse Ox 91 L 02/20/23 13:07 O2 Del Method Room Air 02/20/23 13:07 O2 Flow Rate 6 02/20/23 09:31 FiO2 100 02/20/23 09:31 BMI result Body Mass Index 29.1 Const: Other: General: AO X 3, no acute distress HEENT: WNL Resp: Diffuse wheeze CVS: S1,S2,RRR GI: +BS, NT, no distention Skin: No rash Neuro: motor grossly intact Psych: appropriate affect Results Labs 02/20/23 09:24 02/20/23 09:24 Labs: Laboratory Results - last 24 hr 02/20/23 02/20/23 02/20/23 09:24 10:42 10:44 MCV 81.2 MCH 26.7 L MCHC 32.9 RDW 13.2 Plt Count 352 MPV 9.9 Immature Gran % (Auto) 0.3 Neut % (Auto) 35.1 L Lymph % (Auto) 39.8 [place] % (Auto) 4.6 Eos % (Auto) 19.7 H Baso % (Auto) 0.5 Lymph # (Auto) 4.1 [place] # (Auto) 0.5 Eos # (Auto) 2.0 H Baso # (Auto) 0.1 Abs Immat Gran (auto) 0.03 Absolute Neuts (auto) 3.6 Absolute Nucleated RBC 0.000 Nucleated RBC % (auto) 0.0 Smear Tech's Comments VERIFIED PT 12.0 INR 1.0 APTT 26.4 VBG pH VBG pCO2 VBG pO2 VBG HCO3 VBG O2 Saturation VBG Base Excess Anion Gap 17 Estim Creat Clear Calc TNP Estimated GFR > 60 Random Glucose 129 H Lactic Acid 3.2 H* Calcium 10.1 D Magnesium 2.3 Total Bilirubin 0.6 AST 21 ALT 33 Alkaline Phosphatase 76 Total Protein 8.1 H Albumin 4.5 Lipase 71 COVID-19 (LEIGH) Negative COVID-19 Clin Com See Note 02/20/23 10:47 MCV MCH MCHC RDW Plt Count MPV Immature Gran % (Auto) Neut % (Auto) Lymph % (Auto) [place] % (Auto) Eos % (Auto) Baso % (Auto) Lymph # (Auto) [place] # (Auto) Eos # (Auto) Baso # (Auto) Abs Immat Gran (auto) Absolute Neuts (auto) Absolute Nucleated RBC Nucleated RBC % (auto) Smear Tech's Comments PT INR APTT VBG pH 7.30 L VBG pCO2 53 VBG pO2 122 VBG HCO3 27 H VBG O2 Saturation 100.0 VBG Base Excess -0.4 Anion Gap Estim Creat Clear Calc Estimated GFR Random Glucose Lactic Acid Calcium Magnesium Total Bilirubin AST ALT Alkaline Phosphatase Total Protein Albumin Lipase COVID-19 (LEIGH) COVID-19 Clin Com Assessment and Plan (1) Hypoxic: Status: Acute (2) Asthma exacerbation: Status: Acute Plan 37/m with moderate peristent asthma with acute exacerbation; he in the past reacted to Solumedrol and Prednisone Plan: Admit, IV decadron (no solumedrol of Prednisone), bronchodilators by Neb. Acute lactic acidosis d/t hypoxia, no further follow up Time Spent With Patient Time: Total time managing care of this patient today ____ minutes. Quality Stroke Does the patient have a stroke diagnosis?: No VTE Prior VTE?: No VTE Risk Level:: Medical - low VTE Device Contraindication: Treatment Not Indicated VTE Drug Contraindication: Treatment Not Indicated
--- NOTE | 2023-02-20 14:14 | PHA.MEDREC ---
Pharmacy Consult ? Medication Reconciliation Pharmacy has completed the medication reconciliation.
[2023-02-20] MEDS: dexAMETHasone sod phosphate 4 MG/ML VIAL 6 MG IVPUSH ×2 (15:08→20:43)
[2023-02-20] MEDS: 0.9 % Sodium Chloride Flush 3 ML SYRINGE IVFLUSH (15:08)
[2023-02-20 15:21] LABS: ~Lactic Acid-LAB USE ONLY 6.3 mmol/L (0.5-2.0)
--- NOTE | 2023-02-20 16:25 | PC.NURSE ---
pt now on 2L at 96%, reports feeling much better. able to speak in full clear sentences. call denton within reach.
[2023-02-20] MEDS: Albuterol Sulfate (0.083%) 2.5 MG/3 ML VIAL.NEB INHALE ×2 (16:29→20:52)
[2023-02-20 17:06] LABS: Reflex Lactate? 2 Y
[2023-02-20 19:15] LABS: ~Lactic Acid-LAB USE ONLY 6.4 mmol/L (0.5-2.0)
--- NOTE | 2023-02-20 19:18 | PC.NURSE ---
this rn received critical lactic of 6.4, Dr. anna notified at this time.
[2023-02-20] MEDS: 0.9 % Sodium Chloride 1,000 ML 999 ML IV (20:46)
--- NOTE | 2023-02-20 20:47 | PC.NURSE ---
pt a&ox3. respirations even and unlabored. pt denies pain at this time. pt lung sounds clear bilaterally, 3L nc sating at 95%. pt medicated per mar at this time.
[2023-02-21 00:01] VITALS: BP 114/67; PULSE 100; RESP 20; O2SAT 98
[2023-02-21] MEDS: 0.9 % Sodium Chloride Flush 3 ML SYRINGE IVFLUSH ×2 (00:01→07:35)
--- NOTE | 2023-02-21 00:04 | PC.NURSE ---
this rn titrated pt to 2 L nasal cannula, pt sating between 94-95.
--- NOTE | 2023-02-21 03:15 | PC.NURSE ---
expiratory wheezing noted for pt, respiratory notified to give pt PRN treatment. o2 2L NC, 94%
[2023-02-21 05:30] VITALS: BP 104/70; PULSE 94; RESP 15; O2SAT 92
[2023-02-21 07:32] VITALS: BP 118/65; PULSE 93; RESP 14; TEMP 36.7; O2SAT 92
[2023-02-21] MEDS: Albuterol Sulfate (0.083%) 2.5 MG/3 ML VIAL.NEB INHALE ×2 (08:36→11:16)
[2023-02-21 08:37] VITALS: PULSE 93; RESP 16; O2SAT 94
--- NOTE | 2023-02-21 08:53 | MHC.CM.PN ---
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
[2023-02-21] MEDS: dexAMETHasone sod phosphate 4 MG/ML VIAL 6 MG IVPUSH (09:57)
[2023-02-21] MEDS: Loratadine 10 MG TABLET PO (09:58)
[2023-02-21 11:17] VITALS: PULSE 100; RESP 16; O2SAT 96
--- NOTE | 2023-02-21 11:55 | P.DS_ITS ---
DS: Providers Provider Date of Service: 02/21/23 Date of admission: 02/20/23 14:04 Primary care physician: Andry Sauceda MD DS: Diagnosis Discharge Diagnosis (1) Hypoxic: Status: Acute (2) Asthma exacerbation: Status: Acute DS: Summary Hospital Course Hospital Course: A 37-year-old male, with a relevant medical history of moderate persistent asthma, arrived at the emergency department (ED) experiencing severe shortness of breath. He reported that his breathing difficulties began shortly after taking his allergy medication and ibuprofen. Upon arrival, he exhibited tachypnea, diaphoresis, and had reportedly shown an oxygen saturation as low as 60%, necessitating the use of BiPAP therapy. The patient received treatment including epinephrine, intravenous solumedrol, nebulized bronchodilators, and intravenous magnesium. Thankfully, his condition has improved, and he has been successfully weaned off BiPAP. However, he still presents with diffuse wheezing. Hospital course: Patient was admitted overnight and treated with bronchodilators scheduled and PRN, IV decadron and made rapid recovery by the next day, she has been weaned of oxygen and saturatio 95 % on room air. Will discharge with decadron 6 mg for total of 5 days. He needs to follow up with pulmonology clinic given recurrent exacerbation of asthma. He may have environmental allergy of some sort Acute lactic acidosis was due to hypoxia Time Spent with Patient Time attestation: Total time managing care of this patient today ____ minutes. Discharge coordination time: Greater than 30 minutes Quality: Safe Use of Opioids Does Pt have an Active Cancer Diagnosis on the Problem List?: No Quality: Stroke Does the patient have a stroke diagnosis?: No Physical Exam Vital Signs: Vital Signs: Last Vital Signs Temp 98.1 F 02/21/23 07:32 Pulse 100 02/21/23 11:17 Resp 16 02/21/23 11:17 BP 118/65 02/21/23 07:32 Pulse Ox 92 02/21/23 07:32 O2 Del Method Nasal Cannula 02/21/23 07:32 O2 Flow Rate 2 02/21/23 07:32 FiO2 100 02/20/23 09:31 BMI result Body Mass Index 29.1 DS: Data Data Completed and Pending Labs on day of discharge: Laboratory Results - last 24 hr 02/20/23 02/20/23 15:02 18:50 Lactic Acid F/U @ 2Hr 6.3 H* Lactic Acid F/U @ 4Hr 6.4 H* Discharge Plan Discharge Anticipated Discharge Date/Time: 02/21/23 12:01 Patient Disposition: Home, Self-Care Discharge Diagnosis: Acute hypoxic respiratory failure due to asthma exacerbation Referrals: Andry Sauceda MD [Primary Care Provider] - 1 Week Doroteo Mia MD [Physician] - 1 Week Discharge Medications: New epinephrine [EpiPen 2-Luis] 0.3 mg/0.3 mL auto-injector 0.3 mg IM Q4H PRN (Reason: anaphylaxis,shortness of breath) Qty: 2 0RF dexamethasone 6 mg tablet 6 mg PO DAILY Qty: 3 0RF Continued fluticasone propion-salmeterol [Advair Diskus] 250-50 mcg/dose blister with device 1 ea inhalation BID Spiriva Respimat 2.5 mcg/actuation mist 2 inh inhalation DAILY albuterol sulfate 90 mcg/actuation HFA aerosol inhaler 2 puff INHALATION Q6H PRN (Reason: wheezing) Qty: 1 0RF loratadine [Claritin] 10 mg Tablet 10 mg PO DAILY Qty: 30 0RF ipratropium-albuterol 0.5 mg-3 mg(2.5 mg base)/3 mL Solution For Nebulization 3 ml inhalation Q4H PRN (Reason: Wheezing) Qty: 90 0RF Diet: Advance to usual diet Activity on Discharge: As tolerated Stand Alone Forms: Patient Portal Discharge page Activity Restrictions/Additional Instructions: Care Plan Goals: recovery from asthma Health Concerns: recurrent asthma attack Plan of Treatment: take Decadron and xopenex as directed and follow up with [facility] pulmonology clinic Assessment: as above
[2023-02-21 12:44] LABS: Lactic Acid 2.6 mmol/L (0.5-2.0)
[2023-02-21 14:08] VITALS: O2SAT 95
[2023-02-21 14:28] LABS: Reflex Lactate? Lactic Acid Added
== END 2023-02-21 14:05 | disposition home or self-care (01) | DRG 141 ==
LOC: HO.ED 16:09 → HO.EDOVER 18:36
PROVIDERS: Admitting Provider Internal Medicine; Emergency Provider Emergency Medicine Emergency Medical Services; PCP Internal Medicine; Visit Provider Internal Medicine
DX: J45.41 Moderate persistent asthma with (acute) exacerbation (principal); J96.01 Acute respiratory failure with hypoxia; E87.21 Acute metabolic acidosis; Z20.822 Contact with and (suspected) exposure to COVID-19; Z79.51 Long term (current) use of inhaled steroids; Z79.899 Other long term (current) drug therapy
CPT/HCPCS: 36415; 80053; 82803; 83605; 83690; 83735; 85025; 85610; 85730; 87040; 87635; 94640; 99285; J0171; J1100; J2270; J2930; J3475

== ENCOUNTER → 2023-02-20 14:04 | Outpatient (BNV) | payer OTHER, SELFPAY | PROVIDERS: Admitting Provider Internal Medicine; Emergency Provider Emergency Medicine Emergency Medical Services; PCP Internal Medicine; Visit Provider Internal Medicine | DX: J96.01 Acute respiratory failure with hypoxia (principal); J45.901 Unspecified asthma with (acute) exacerbation | CPT/HCPCS: 99223; 99239 ==

== ENCOUNTER 2023-06-05 23:46 | Emergency (ER) | payer OTHER, SELFPAY ==
--- NOTE | ~2023-06-05 | XR_ITS ---
EXAMINATION: XR CHEST CLINICAL INFORMATION: Cough COMPARISON: 08/27/2022 TECHNIQUE: Frontal view of the chest was obtained. FINDINGS: The lungs are clear with no focal consolidation. No evidence of pneumothorax, pulmonary edema, or pleural effusions. The cardiomediastinal silhouette is unremarkable. No acute osseous findings. XR/XR chest 1V IMPRESSION: No acute cardiopulmonary findings.
--- NOTE | ~2023-06-05 | CT_ITS ---
EXAMINATION: CT sinus wo IV con, CT head/brain wo IV con CLINICAL INFORMATION: Reason for Exam Left maxillary pain COMPARISON: None. TECHNIQUE: Contiguous axial imaging was performed without intravenous contrast. Sagittal and coronal reformatted images were obtained. This CT examination was performed using dose optimization techniques as appropriate, variously including the following: * Automated exposure control * Adjustment of mA and/or kV according to patient size (this includes techniques or standardized protocols for targeted exams where dose is matched to indication/reason for exam; i.e. extremities or head) Use of iterative reconstruction technique DLP: 714 mGy-cm FINDINGS: No acute osseous or soft tissue abnormality. The mastoid air cells are well aerated. There is complete opacification of the paranasal sinuses. Low-density opacification of the nasal cavity likely reflects polyposis. There is an area of focal dehiscence involving the right lamina papyracea (series 12 image 129) involving a slightly expanded right anterior ethmoid air cell projecting slightly into the medial extraconal right orbit which may reflect mucocele formation. There is no evidence of acute intracranial hemorrhage or territorial infarction. No abnormal mass effect or midline shift is seen. Ibrahim to white matter differentiation is well preserved. No extra-axial fluid collections are identified. No hydrocephalus. No significant volume loss. There is no abnormal attenuation within the brain parenchyma. CT/CT head/brain wo IV con IMPRESSION: 1. No acute intracranial abnormality including hemorrhage, mass effect, hydrocephalus, or acute territorial edematous infarction. 2. Complete opacification of the paranasal sinuses and suspected nasal cavity polyposis. There is focal dehiscence of the right lamina papyracea involving a mildly expanded right anterior ethmoid air cell which may reflect mucocele formation.
[2023-06-05 23:48] VITALS: BP 143/90; PULSE 114; RESP 18; TEMP 37; O2SAT 94; BMI 31.7
[2023-06-06] MEDS: Ondansetron ODT 4 MG TAB.RAPDIS TRANSLINGU (00:49)
[2023-06-06 01:03] LABS: COVID-19 Test Negative (Negative); IDNOW Serial# 152EDE1D
[2023-06-06 01:05] LABS: IDNOW Serial# 08D9AD1C; Influenza A Negative (Negative); Influenza B2 Negative (Negative)
--- NOTE | 2023-06-06 01:14 | PC.NURSE ---
tetracaine eye drops not available in house, md aware. order canceled for this reason
--- NOTE | 2023-06-06 01:21 | ED.GENADULT ---
HPI - General Adult General Chief complaint: General Medical Stated complaint: Allergic reaction to meds Time Seen by Provider: 06/06/23 00:36 Source: patient Mode of arrival: ambulatory Limitations: no limitations History of Present Illness HPI narrative: [age] year male came in for evaluation of left facial pain. Patient was seen and evaluated yesterday at walk-in clinic for upper respiratory symptoms and cough, patient reports negative flu and COVID testing at the clinic yesterday, was prescribed Tessalon Perle for coughing when patient take it started to have sudden onset left facial pain, no blurry vision, no double vision, no photophobia, no neck stiffness, patient noted to have low-grade fever in the emergency department, with nasal congestion, cough with productive clear sputum. Related Data Home Medications Medication Instructions Recorded Confirmed fluticasone 250 mcg-salmeterol 50 1 ea inhalation BID 02/20/23 02/20/23 mcg/dose blistr powdr for inhalation (Advair Diskus) tiotropium bromide 2.5 2 inh inhalation DAILY 02/20/23 02/20/23 mcg/actuation mist for inhalation (Spiriva Respimat) Previous Rx's Medication Instructions Recorded albuterol sulfate 90 mcg/actuation 2 puff inhalation Q6H PRN wheezing 08/27/22 aerosol inhaler #1 g loratadine 10 mg tablet (Claritin) 10 mg PO DAILY #30 tabs 08/27/22 ipratropium 0.5 mg-albuterol 3 mg 3 ml inhalation Q4H PRN Wheezing 08/30/22 (2.5 mg base)/3 mL nebulization #90 mL soln epinephrine 0.3 mg/0.3 mL 0.3 mg (0.3 mL) IM Q4H PRN 02/20/23 injection, auto-injector (EpiPen anaphylaxis,shortness of breath #2 2-Luis) ea dexamethasone 6 mg tablet 6 mg PO DAILY #3 tabs 02/21/23 azithromycin 500 mg tablet 500 mg PO DAILY 7 days #7 tabs 06/06/23 (Zithromax) Allergies Allergy/AdvReac Type Severity Reaction Status Date / Time methylprednisolone Allergy Severe Shortness Verified 06/05/23 23:47 [From Solu-Medrol] of Breath and wheezing prednisone Allergy Severe Wheezing Verified 06/05/23 23:47 Penicillins [PENICILLINS] Allergy Unknown UNKNOWN Verified 06/05/23 23:47 Review of Systems Review of Systems: All other systems are reviewed and are negative Constitutional: Reports as per HPI and Reports no additional constitutional complaints Eyes: Reports as per HPI and Reports no additional eye complaints Reports system reviewed and no additional complaints, except as documented Cardiovascular: Reports as per HPI and Reports no additional cardiovascular complaints Respiratory: Reports as per HPI and Reports no additional respiratory complaints Gastrointestinal: Reports as per HPI and Reports no additional gastrointestinal complaints Genitourinary: Reports no additional female genitourinary complaints Musculoskeletal: Reports no additional musculoskeletal complaints Skin/Breast: Reports system reviewed and no additional complaints, except as docu Psychiatric: Reports no additional psychiatric complaints Endocrine: Reports no additional endocrine complaints Hematologic/Lymphatic: Reports no additional hematologic/lymphatic complaints Allergic/Immunologic: Reports no additional allergic/immunologic complaints Reports system reviewed and no additional complaints, except as documented and Reports Abnormal speech present [facility] Past Medical History Medical History Environmental allergies Asthma Social History Social History Household Members: None Housing: House Do you presently have visiting nurse or other home services: No Patient Tobacco Use Status: Never used Tobacco Advance Directives: No Advance Directives Information Provided: Yes service: No Current occupational status: employed Physical Exam ED Vital Signs: Vital Signs - 24 hr 06/05/23 23:48 Temperature 98.6 F Pulse Rate 114 H Respiratory Rate 18 Blood Pressure 143/90 H Pulse Oximetry 94 Oxygen Delivery Method Room Air BMI result Body Mass Index 31.7 Vital signs have been reviewed and appear to be correct. Blood pressure elevated. Heart rate elevated. Respiratory rate normal. Temperature normal. Oxygen saturation normal. Appearance: Alert. Oriented X3. No acute distress. Head: Normal external exam. Normocephalic. Atraumatic. No Langston signs noted. No raccoon eyes noted General: appearance normal, both eyes and all related structures Visual Mena: normal visual mena by confrontation. Alignment and Position: alignment normal and position normal Periorbital: periorbital findings normal Eyelids: Yes eyelids normal Conjunctivae: conjunctivae normal Sclerae: sclerae normal Corneas: corneas normal Pupils: Equal, round and reactive pupils present and Pupil accommodation reflex normal EOM: EOM abnormal, No Nystagmus present Direct Ophthalmoscopy: normal light reflex, no photophobia, no papilledema and fundi normal bilaterally. Visual acuity is 20/20 right, 20/20 left. IOP right is 15, left is 13 ENT: Left maxillary sinus markedly tender with percussion. Neck: Normal inspection. Neck supple. FROM. No adenopathy. Thyroid Normal. No meningeal signs. No neck mass noted. CVS: Normal heart rate and rhythm. Heart sound normal. No murmurs noted. Pulses normal throughout. Respiratory: No respiratory distress. Painless inspiration. Breath sounds normal. No wheezes/rales/rhonchi noted. Chest nontender. No accessory muscle usage noted or decreased air movement noted. Abdomen: Soft and nontender. Bowel sounds normal in all 4 quadrants. No distention noted. No organomegaly noted. No visible injury noted. Back: No CVA tenderness. Full range of motion noted. Skin: Skin warm and dry. Normal skin color. Normal skin turgor. No rashes/lesions/lacerations noted. Extremities: No lower extremity edema. Extremities exhibit normal range of motion. Extremities nontender. Neuro: Oriented X 3. Cranial nerve exam: II-XII are grossly intact No motor deficit. No sensory deficit. Reflexes normal. Course Reevaluation(s) Reevaluation #1: A 38-year-old male came in for evaluation of upper respiratory symptoms and left facial tenderness and pain physical exam is consistent with left maxillary sinusitis. Because patient history of multiple drug reaction and allergy will start the patient on Zithromax. Time: 02:30 Medications Administered Discontinued Medications Generic Name Dose Route Start Last Admin Trade Name Sukhwinderq PRN Reason Stop Dose Admin Azithromycin 500 mg 06/06/23 01:31 06/06/23 01:56 Azithromycin 500 Mg Tablet PO 06/06/23 01:32 500 mg ONCE ONE Administration Ondansetron HCl 4 mg 06/06/23 00:42 06/06/23 00:49 Ondansetron Odt 4 Mg Tab.Rapdis TRANSLINGU 06/06/23 00:43 4 mg ONCE ONE Administration Medical Decision Making Differential Diagnosis Differential Diagnoses: The differential diagnosis associated with the presentation includes (Glaucoma, sinusitis, COVID, influenza.) Admission/Observation Consideration of admission/observation: Escalation of care including admission/observation considered Lab Data MDM Lab Attestation statement: I reviewed the patient's lab results. Labs: Lab Results 06/06/23 Range/Units 00:44 COVID-19 (LEIGH) Negative (Negative) COVID-19 Clin Com See Note Influenza Type A (FELIX) Negative (Negative) Influenza Type B (FELIX) Negative (Negative) Influenza A & B Note See Note Independent Interpretation I performed an independent interpretation of an: CT Scan (Head/sinus CT: Left maxillary sinusitis) Radiology Impression Discussion of test interpretation with radiology: I have reviewed the radiologist's reading. (1. No acute intracranial abnormality including hemorrhage, mass effect, hydrocephalus, or acute territorial edematous infarction. 2. Complete opacification of the paranasal sinuses and suspected nasal cavity polyposis. There is focal dehiscence of the right lamina papyracea involving a mildly e) Discharge Plan Discharge Clinical Impression: Left maxillary sinusitis Patient Disposition: Home, Self-Care Instructions: Sinusitis (ED) Prescriptions: New azithromycin [Zithromax] 500 mg tablet 500 mg PO DAILY 7 Days Qty: 7 0RF No Action epinephrine [EpiPen 2-Luis] 0.3 mg/0.3 mL auto-injector 0.3 mg IM Q4H PRN (Reason: anaphylaxis,shortness of breath) Qty: 2 0RF fluticasone propion-salmeterol [Advair Diskus] 250-50 mcg/dose blister with device 1 ea inhalation BID Spiriva Respimat 2.5 mcg/actuation mist 2 inh inhalation DAILY dexamethasone 6 mg tablet 6 mg PO DAILY Qty: 3 0RF albuterol sulfate 90 mcg/actuation HFA aerosol inhaler 2 puff INHALATION Q6H PRN (Reason: wheezing) Qty: 1 0RF loratadine [Claritin] 10 mg Tablet 10 mg PO DAILY Qty: 30 0RF ipratropium-albuterol 0.5 mg-3 mg(2.5 mg base)/3 mL Solution For Nebulization 3 ml inhalation Q4H PRN (Reason: Wheezing) Qty: 90 0RF
[2023-06-06] MEDS: Azithromycin 500 MG TABLET PO (01:56)
[2023-06-06 03:19] VITALS: BP 122/68; PULSE 78; RESP 16; O2SAT 96
== END 2023-06-06 06:58 | disposition home or self-care (01) ==
PROVIDERS: Emergency Provider Emergency Medicine
DX: J32.0 Chronic maxillary sinusitis (principal); L50.0 Allergic urticaria; R51.9 Headache, unspecified; R05.9 Cough, unspecified; Z11.52 Encounter for screening for COVID-19
CPT/HCPCS: 70450; 70486; 71045; 87502; 87635; 99284

== ENCOUNTER 2023-09-03 12:53 | Outpatient (AMB) | payer OTHER, SELFPAY ==
[2023-09-03 12:56] VITALS: BP 126/80; BMI 33.3
--- NOTE | 2023-09-03 12:56 | MHC.PC.OV ---
Vital Signs 09/03/23 12:56 Height 5 ft 3 in Weight 188 lb BMI 33.3 BP 126/80 Blood Pressure Location Lt brachial Position Sitting Intake Visit Reasons: [employer]PER[employer]OR-Asthma Intake Note: New patient, Asthma Patient Services Clerk Required: No Accompanied by: Self / Same As Patient Allergies methylprednisolone [From Solu-Medrol] Allergy (Severe, Verified 09/03/23 13:13) Shortness of Breath and wheezing prednisone Allergy (Severe, Verified 09/03/23 13:13) Wheezing Penicillins [PENICILLINS] Allergy (Unknown, Verified 09/03/23 13:13) UNKNOWN Medication List - Last Reconciled 09/03/23 by Nae Romo MD albuterol sulfate 90 mcg/actuation 2 puffs inhalation Q6H PRN cetirizine (All Day Allergy (cetirizine)) 10 mg PO DAILY PRN epinephrine (EpiPen 2-Luis) 0.3 mg (0.3 mL) IM Q4H PRN fluticasone propion-salmeterol 250-50 mcg/dose (Wixela Inhub) 1 inh inhalation BID ipratropium-albuterol 0.5 mg-3 mg(2.5 mg base)/3 mL 3 mL inhalation Q4H PRN loratadine (Claritin) 10 mg PO DAILY Tobacco use date assessed: 09/03/23 Dental Screening Dental Screen Date: 09/03/23 Did you have a dental visit in the last 12 months?: Yes Did you have a dental problem in the last 6 months where you did not have access to dental care?: No Was dental information given to patient?: Patient has dentist HPI HPI Comments History of Present Illness Details This is a 38-year-old male with moderate persistent asthma, allergic rhinitis and obesity that complains today of nasal congestion with sinus tenderness that started few days ago with no fever most likely due to acute sinusitis. Will start him on doxycycline. He use rescue inhaler daily and wixela has somehow improved the shortness of breath but it still present. Will be referred to pulmonology and order a pulmonary function test. Allergic rhinitis stable with antihistamines. He is obese with a BMI of 33.3 and was advised to do diet and exercise to reach BMI goal less than 30. [facility] Medical History (Updated 09/03/23 @ 13:29 by Nae Romo MD) Environmental allergies Asthma Surgical History No pertinent past surgical history Family History Mother Diabetes Father No problems noted. Social History Household Members: None Housing: House Do you presently have visiting nurse or other home services: No Alcohol intake: former Patient Tobacco Use Status: Never used Tobacco e-Cigarette/Vaping Use: Never Used Second Hand Smoke Exposure: No service: No Current occupational status: employed Current occupational exposures/hazards: No Cognitive needs: No Hearing needs: No Vision needs: Yes Questionnaire PHQ-9 Over the last 2 weeks, how often have you been bothered by any of the following problems? 1. Little interest or pleasure in doing things: not at all 2. Feeling down, depressed, or hopeless: not at all 3. Trouble falling or staying asleep, or sleeping too much: not at all 4. Feeling tired or having little energy: not at all 5. Poor appetite or overeating: not at all 6. Feeling bad about yourself - or that you are a failure or have let yourself or your family down: not at all 7. Trouble concentrating on things, such as reading the newspaper or watching television: not at all 8. Moving or speaking so slowly that other people could have noticed. Or the opposite - being so fidgety or restless that you have been moving around a lot more than usual: not at all 9. Thoughts that you would be better off or of hurting yourself in some way: not at all Total score: 0 Depression Screening Interpretation: Negative Depression Screening Done: Yes 44819 - PHQ-9 Billing: Yes Source: Developed by Drs. Giovani Newton, Jessy Montesinos, Tony Avery and colleagues, with an educational anshul from [employer]. Thrive Questionnaire Date Thrive assessed: 09/03/23 I am a: Patient What is your living situation today?: I have a steady place to live Within the past 12 months, did the food you bought not last and you didn't have the money to get more?: Never true Within the past 12 months, did you worry whether your food would run out before you got money to buy more?: Never true Do you have trouble paying for medicines?: No Do you have trouble getting transportation to medical appointments?: No Do you have trouble paying your heating and electricity bill?: No Do you have trouble taking care of your child, family member or friend?: No Do you have trouble with day-to-day activities such as bathing, preparing meals, shopping, managing finances, etc.?: No Are you currently unemployed and looking for a job?: No Are you interested in more education?: No Please select the resources that you would like help with: None Currently or been in a relationship where the following occur: no concerns reported THRIVE Score: 0 AUDIT C Alcohol Use Questionnaire (AUDIT-C) 1. How often do you have a drink containing alcohol?: Never Total Score: 0 Score Reviewed/Action Taken: No AIXA-7 AMB Questionnaire AIXA-7 Date AIXA - 7 assessed: 09/03/23 Feeling nervous, anxious, or on edge: 0 = Not at all Not being able to stop or control worryin = Not at all Worrying too much about different things: 0 = Not at all Trouble relaxin = Not at all Being so restless that it is hard to sit still: 0 = Not at all Becoming easily annoyed or irritable: 0 = Not at all Feeling afraid as if something awful might happen: 0 = Not at all Total AIXA-7 score (0-4 normal; 5-9 mild; 10-14 moderate; 15-21 severe): 0 Source: Developed by Drs. Giovani Newton, Jessy Montesinos, Tony Avery and colleagues, with an educational anshul from [employer]. AIXA-7 Assessment Billing AIXA-7 Assessment Tool: AIXA-7 Assessment 63063 Review of Systems Const All systems reviewed & are unremarkable except as noted in HPI and below Eyes Reports no additional complaints, Denies change in vision and Denies other visual disturbances Card Denies chest pain at rest, Denies chest pain with activity, Denies edema, Denies irregular heart rhythm, Denies claudication, Reports dyspnea, Denies dyspnea on exertion, Denies orthopnea, Denies paroxysmal nocturnal dyspnea and Denies slow heart rate Resp Denies cough, Reports dyspnea and Denies dyspnea on exertion GI Denies abdominal pain, Denies change in bowel habits, Denies excessive flatus, Denies nausea and Denies vomiting Denies urinary hesitancy, Denies urinary incontinence and Denies urinary urgency Physical exam (Primary Care) Vital Signs: Last Vital Signs BP 126/80 09/03/23 12:56 BMI result Body Mass Index 33.3 Tobacco/Smoking Status: Tobacco use Status Tobacco use date assessed 09/03/23 09/03/23 13:06 Patient Tobacco Use Status Never used Tobacco 09/03/23 13:06 e-Cigarette/Vaping Use Never Used 09/03/23 13:06 PHQ-9: PHQ-9 Score PHQ-9: Total score 0 09/03/23 13:06 Depression Screening Interpretation: Negative Thrive Assessment: Date of Thrive Assessment Date Thrive assessed 09/03/23 09/03/23 13:06 Currently or been in a relationship where the following occur: no concerns reported Resp Effort & Inspection: normal respiratory effort Auscultation: clear to auscultation bilaterally Cardio Jugular venous distension: no JVD Rate: regular rate Rhythm: regular rhythm Heart sounds: S1 normal heart sound present and S2 normal heart sound present Assessment and Plan Assessment & Plan (1) Allergic rhinitis: Code(s): J30.9 - Allergic rhinitis, unspecified Plan: Continue antihistamines as needed. (2) Moderate persistent asthma: Code(s): J45.40 - Moderate persistent asthma, uncomplicated Plan: Continue Wixela. Use rescue inhaler as needed. Pulmonary function test ordered. Referred to pulmonology. (3) Acute maxillary sinusitis: Code(s): J01.00 - Acute maxillary sinusitis, unspecified Plan: Start doxycycline. (4) Class 1 obesity with body mass index (BMI) of 33.0 to 33.9 in adult: Code(s): E66.9 - Obesity, unspecified; Z68.33 - Body mass index [BMI] 33.0-33.9, adult Plan: Start diet and exercise. BMI goal is less than 30. Orders: Orders Comprehensive [facility]. Panel Fast Today J45.40 - Moderate persistent asthma, uncomplicated PFT pulmonary function test Today J45.40 - Moderate persistent asthma, uncomplicated Complete Blood Count Auto Diff Today J30.9 - Allergic rhinitis, unspecified Lipid Panel Today E66.9 - Obesity, unspecified, Z68.33 - Body mass index [BMI] 33.0-33.9, adult Referrals Pulmonology Referral J45.40 - Moderate persistent asthma, uncomplicated Medications: New fluticasone propion-salmeterol 250-50 mcg/dose (Wixela Inhub) 1 inh inhalation BID 30 days 60 ea 0RF J45.40 - Moderate persistent asthma, uncomplicated doxycycline hyclate 100 mg PO BID 5 days 10 tabs 0RF J01.00 - Acute maxillary sinusitis, unspecified cetirizine (Zyrtec) 10 mg PO DAILY 90 days PRN 90 tabs 0RF allergy symptoms Refilled epinephrine (EpiPen 2-Luis) 0.3 mg (0.3 mL) IM Q4H PRN 2 ea 0RF anaphylaxis,shortness of breath albuterol sulfate 90 mcg/actuation 2 puffs inhalation Q6H PRN 1 g 0RF wheezing ipratropium-albuterol 0.5 mg-3 mg(2.5 mg base)/3 mL 3 mL inhalation Q4H PRN 90 mL 0RF Wheezing Discontinued azithromycin (Zithromax) Discontinued Reason: Patient Completed Course 500 mg PO DAILY 7 days 7 tabs 0RF loratadine (Claritin) Discontinued Reason: Patient Completed Course 10 mg PO DAILY 30 tabs 0RF dexamethasone Discontinued Reason: Patient Completed Course 6 mg PO DAILY 3 tabs 0RF Coding Level of Care Code New Pt Level 4 (17921) Diagnoses Allergic rhinitis J30.9 Moderate persistent asthma J45.40 Acute maxillary sinusitis J01.00 Class 1 obesity with body mass index (BMI) of 33.0 to 33.9 in adult E66.9; Z68.33 Additional Codes AIXA-7 Assessment Billing - AIXA-7 Assessment Tool: AIXA-7 Assessment 22736 ([id number]) Time Spent (min) 25
== END 2023-09-03 13:27 | disposition home or self-care (01) ==
PROVIDERS: PCP Internal Medicine; Visit Provider Internal Medicine
DX: J30.9 Allergic rhinitis, unspecified (principal); J45.40 Moderate persistent asthma, uncomplicated; J01.00 Acute maxillary sinusitis, unspecified; E66.9 Obesity, unspecified; Z68.33 Body mass index [BMI] 33.0-33.9, adult
CPT/HCPCS: 99204

== ENCOUNTER 2023-10-08 14:45 | Outpatient (REF) | payer OTHER, SELFPAY ==
[2023-10-08 15:26] LABS: MANUAL DIFF FLAG NO
[2023-10-08 15:49] LABS: Basophils Percent Auto 0.9 % (0-2); Eosinophils Percent Auto 18.8 % (0-4); Hematocrit 43.5 % (42.0-52.0); Hemoglobin 14.7 g/dl (14.0-18.0); Imm Gran Pct Auto 0.5 % (0.0-0.4); Mean Corpuscular HGB Conc 33.8 g/dl (31.0-36.0); Mean Corpuscular Hemoglobin 27.9 pg (27.0-33.0); Mean Corpuscular Volume 82.5 fL (80.0-98.0); Mean Platelet Volume 11.5 fL (9.4-12.4); Monocytes Percent Auto 6.1 % (2-11); Neutrophils Percent Auto 48.7 % (45-73); Platelet Count 214 X10*3/uL (160-400); Red Blood Count 5.27 X10*6/uL (4.60-5.80); Red Cell Distribution Width 13.6 % (11.0-16.0); White Blood Count 10.3 X10*3/uL (4.8-10.8)
[2023-10-08 15:50] LABS: Basophils Absolute Auto 0.1 X10*3/uL (0.0-0.2); Eosinophils Absolute Auto 1.9 X10*3/uL (0.0-0.4); Imm Gran Abs Auto 0.05 X10*3/uL (0.00-0.03); Lymphocytes Absolute Auto 2.6 X10*3/uL (1.2-4.9); Monocytes Absolute Auto 0.6 X10*3/uL (0.1-1.2)
[2023-10-16 08:56] LABS: Class Mouse Urine Protein 0/1
[2023-10-16 08:57] LABS: Class Cat Dander 3; Class Cockroach 0/1; Class Dermatophagoides farinae 4; Class Dog Dander 3; Class Timothy Grass 1; E005 - IgE Dog Dander 8.41 (H); I006-IgE Cockroach, German 0.12 (H)
[2023-10-16 08:58] LABS: Class Alternaria alternata 0; Class Aspergillus fumigatus 0; Class Cladosporium herbarum 0; Class Cottonwood 0; Class Mountain Cedar 0/1; Class Oak 2; Class Sycamore 0; Class Walnut Tree 0; M002 - IgE Cladosporium herbar <0.10; M003 - IgE Aspergillus fumigat <0.10; M006 - IgE Alternaria alternat <0.10; T006 - IgE Cedar, Mountain 0.10 (H); T010 - IgE Walnut <0.10; T011 - IgE Maple Leaf Sycamore <0.10; T014 - IgE Cottonwood <0.10
[2023-10-16 08:59] LABS: Class Bermuda Grass 0; Class Birch 3; Class Common Ragweed 0; Class Derm. pterony 4; Class Mugwort 0; Class Penicillium crysogenum 0; Class White Ash 0; Class White Mulberry 0; G002 IgE Bermuda Grass <0.10; M001 IgE Penicillium chrysogen <0.10; T015 - IgE Ash, White <0.10; T070 - IgE White Mulberry <0.10; W001 - IgE Ragweed, Short <0.10; W006 - IgE Mugwort <0.10
[2023-10-16 09:00] LABS: Class Elm 0; Class Maple Box Elder 0; Class Rough Pigweed 0; Class Sheep Sorrel 0; T001 IgE Maple/Box Elder <0.10; T008 IgE Elm, American <0.10; W014 IgE Pigweed, Common <0.10; W018 IgE Sheep Sorrel <0.10
== END 2023-10-08 14:46 | disposition home or self-care (01) ==
LOC: HO.LAB 14:45
PROVIDERS: PCP Internal Medicine; Referring Provider Internal Medicine; Visit Provider Internal Medicine Pulmonary Disease
DX: J45.40 Moderate persistent asthma, uncomplicated (principal)
CPT/HCPCS: 36415; 82785; 85025; 86003

== ENCOUNTER 2023-10-08 14:45 | Outpatient (AMB) | payer OTHER, SELFPAY ==
[2023-10-08 14:46] VITALS: BP 127/78; PULSE 96; O2SAT 94; BMI 33.4
--- NOTE | 2023-10-08 14:46 | MHC.OFFVIS ---
Vital Signs 10/08/23 14:46 Height 5 ft 3 in Weight 188 lb 7.924 oz BMI 33.4 BP 127/78 Blood Pressure Location Rt brachial Position Sitting Pulse 96 Pulse Source Doppler Pulse Oximetry (%) 94 Oxygen Delivery Method Room Air Intake Visit Reasons: moderate asthma Allergies methylprednisolone [From Solu-Medrol] Allergy (Severe, Verified 10/08/23 14:51) Shortness of Breath and wheezing prednisone Allergy (Severe, Verified 10/08/23 14:51) Wheezing Penicillins [PENICILLINS] Allergy (Unknown, Verified 10/08/23 14:51) UNKNOWN HPI HPI moderate asthma: Details: 38-year-old gentleman, nonsmoker, with underlying history of asthma since childhood and multiple first-degree relatives with asthma with admission to [facility] in August of 2022 for asthma exacerbation. Of note, patient can not tolerate prednisone and does require dexamethasone systemic glucocorticoids. Patient has been using Wixela 250, duo nebs, albuterol MDI, and Zyrtec with suboptimal control of his asthma and environmental allergies symptoms. [facility], [facility] Medical History (Updated 10/08/23 @ 15:07 by Srinivas Hicks MD) Environmental allergies Asthma Surgical History No pertinent past surgical history Family History Mother Diabetes Father No problems noted. Social History Household Members: None Housing: House Do you presently have visiting nurse or other home services: No Alcohol intake: former Patient Tobacco Use Status: Never used Tobacco e-Cigarette/Vaping Use: Never Used Second Hand Smoke Exposure: No service: No Current occupational status: employed Current occupational exposures/hazards: No Cognitive needs: No Hearing needs: No Vision needs: Yes Review of Systems Const Denies daytime sleepiness, Denies excessive sweating, Denies fatigue, Denies fever(s), Denies lethargy, Denies malaise, Denies night sweats, Denies snoring and Denies weight loss Eyes Denies blurry vision and Denies itchy eyes ENT Denies nasal congestion, Denies post nasal drip, Denies sinus pain, Denies sinus pressure and Denies other ( Thrush) Card Denies chest pain, Denies pedal edema, Denies dyspnea, Reports dyspnea on exertion, Denies orthopnea and Denies paroxysmal nocturnal dyspnea Resp Denies cough, Denies hemoptysis, Denies excessive phlegm production, Denies dyspnea, Reports dyspnea on exertion, Denies snoring and Reports wheezing GI Denies abdominal pain and Denies heartburn Musc Denies myalgias, Denies arthralgias and Denies joint swelling Skin/Breast Denies rash Neuro Denies memory loss and Denies seizure-like activity Psych Denies abnormal sleep pattern, Denies anxiety and Denies memory loss Endo Denies excessive sweating, Denies fatigue and Denies heat intolerance Jesu/Lymph Denies easy bruising Aller/Immun Denies itchy eyes, Denies seasonal rhinorrhea and Reports wheezing Physical Exam Vital Signs: Last Vital Signs Pulse 96 10/08/23 14:46 BP 127/78 10/08/23 14:46 Pulse Ox 94 10/08/23 14:46 Oxygen Delivery Method Room Air 10/08/23 14:46 BMI result Body Mass Index 33.4 Const General: no acute distress and alert Nutritional Appearance: not obese Orientation/consciousness: Other orientation findings ( oriented) HEENT Head: Yes atraumatic Eyes General: appearance normal, both eyes and all related structures Sclerae: sclerae normal EOM: EOMs intact bilaterally Neck Neck: Yes supple Lymphatic: no lymphadenopathy noted Resp Effort & Inspection: normal respiratory effort and no use of accessory muscles Auscultation: clear to auscultation bilaterally Cardio Rate: regular rate Rhythm: regular rhythm Heart sounds: no gallops, no murmurs and no rubs Skin General skin exam: other ( warm) Extrem General: No clubbing, No cyanosis and No edema Assessment & Plan Assessment & Plan (1) Moderate persistent asthma: Code(s): J45.40 - Moderate persistent asthma, uncomplicated Category: Medical Plan: At least moderate persistent asthma suboptimally controlled on Wixela 250, duo nebs, and albuterol MDI. Will increase Wixela to 500 and obtain full PFT. (2) Environmental allergies: Code(s): Z91.09 - Other allergy status, other than to drugs and biological substances Category: Medical Plan: Will obtain IgE level, CBC with differential, and RAST panel for further evaluation. Orders: Orders Resp Allergy Profile Region I Today J45.40 - Moderate persistent asthma, uncomplicated PFT pulmonary function test Today J45.40 - Moderate persistent asthma, uncomplicated Complete Blood Count Auto Diff Today J45.40 - Moderate persistent asthma, uncomplicated Medications: New fluticasone propion-salmeterol 500-50 mcg/dose (Wixela Inhub) 1 inh inhalation BID 60 ea 6RF 30 days J45.40 - Moderate persistent asthma, uncomplicated Discontinued fluticasone propion-salmeterol 250-50 mcg/dose (Wixela Inhub) Discontinued Reason: Doctor's Order 1 inh inhalation BID 30 days 60 ea 0RF J45.40 - Moderate persistent asthma, uncomplicated Coding Level of Care Code Est Pt Level 4 (44207) Diagnoses Moderate persistent asthma J45.40 Environmental allergies Z91.09
== END 2023-10-08 15:08 | disposition home or self-care (01) ==
PROVIDERS: PCP Internal Medicine; Referring Provider Internal Medicine; Visit Provider Internal Medicine Pulmonary Disease
DX: J45.40 Moderate persistent asthma, uncomplicated (principal); Z91.09 Other allergy status, other than to drugs and biological substances
CPT/HCPCS: 99214

== ENCOUNTER 2024-01-20 13:42 | Outpatient (AMB) | payer OTHER, SELFPAY ==
--- NOTE | 2024-01-20 13:44 | MHC.PC.OV ---
Vital Signs 01/20/24 13:50 Height 5 ft 3 in Weight 184 lb BMI 32.6 BP 122/80 Blood Pressure Location Lt brachial Position Sitting Intake Visit Reasons: Annual Exam Intake Note: Patient here for an Annual Physical Exam [employer] Supervisor Required: No Accompanied by: Self / Same As Patient Allergies methylprednisolone [From Solu-Medrol] Allergy (Severe, Verified 01/20/24 13:58) Shortness of Breath and wheezing prednisone Allergy (Severe, Verified 01/20/24 13:58) Wheezing Penicillins [PENICILLINS] Allergy (Unknown, Verified 01/20/24 13:58) UNKNOWN Medication List - Last Reconciled 01/20/24 by Nae Romo MD albuterol sulfate 90 mcg/actuation 2 puffs inhalation Q6H PRN cetirizine (Zyrtec) 10 mg PO DAILY PRN 90 days epinephrine (EpiPen 2-Luis) 0.3 mg (0.3 mL) IM Q4H PRN fluticasone propion-salmeterol 500-50 mcg/dose (Wixela Inhub) 1 inh inhalation BID 30 days ipratropium-albuterol 0.5 mg-3 mg(2.5 mg base)/3 mL 3 mL inhalation Q4H PRN Tobacco use date assessed: 09/03/23 Dental Screening Dental Screen Date: 09/03/23 HPI HPI Comments History of Present Illness Details This is a 38-year-old male that comes for his physical exam. No chest pain or shortness of breath. Tdap vaccine was over 10 years ago. [facility] Medical History Environmental allergies Asthma Surgical History No pertinent past surgical history Family History Mother Diabetes Father No problems noted. Social History Household Members: None Housing: House Do you presently have visiting nurse or other home services: No Alcohol intake: former Patient Tobacco Use Status: Never used Tobacco e-Cigarette/Vaping Use: Never Used Second Hand Smoke Exposure: No service: No Current occupational status: employed Current occupational exposures/hazards: No Cognitive needs: No Hearing needs: No Vision needs: Yes Questionnaire PHQ-9 Over the last 2 weeks, how often have you been bothered by any of the following problems? 1. Little interest or pleasure in doing things: not at all 2. Feeling down, depressed, or hopeless: not at all 3. Trouble falling or staying asleep, or sleeping too much: not at all 4. Feeling tired or having little energy: not at all 5. Poor appetite or overeating: not at all 6. Feeling bad about yourself - or that you are a failure or have let yourself or your family down: not at all 7. Trouble concentrating on things, such as reading the newspaper or watching television: not at all 8. Moving or speaking so slowly that other people could have noticed. Or the opposite - being so fidgety or restless that you have been moving around a lot more than usual: not at all 9. Thoughts that you would be better off or of hurting yourself in some way: not at all Total score: 0 Depression Screening Interpretation: Negative Depression Screening Done: Yes 38859 - PHQ-9 Billing: Yes Source: Developed by Drs. Giovani Newton, Jessy Montesinos, Tony Avery and colleagues, with an educational anshul from [employer]. Thrive Questionnaire Date Thrive assessed: 01/20/24 I am a: Patient What is your living situation today?: I have a steady place to live Within the past 12 months, did the food you bought not last and you didn't have the money to get more?: Sometimes True Within the past 12 months, did you worry whether your food would run out before you got money to buy more?: Sometimes True Do you have trouble paying for medicines?: Yes Do you have trouble getting transportation to medical appointments?: No Do you have trouble paying your heating and electricity bill?: No Do you have trouble taking care of your child, family member or friend?: No Do you have trouble with day-to-day activities such as bathing, preparing meals, shopping, managing finances, etc.?: No Are you currently unemployed and looking for a job?: No Are you interested in more education?: No Please select the resources that you would like help with: None Currently or been in a relationship where the following occur: No concerns reported THRIVE Score: 2 AUDIT C Alcohol Use Questionnaire (AUDIT-C) 1. How often do you have a drink containing alcohol?: Never Total Score: 0 Score Reviewed/Action Taken: No AIXA-7 AMB Questionnaire AIXA-7 Date AIXA - 7 assessed: 01/20/24 Feeling nervous, anxious, or on edge: 0 = Not at all Not being able to stop or control worryin = Not at all Worrying too much about different things: 0 = Not at all Trouble relaxin = Not at all Being so restless that it is hard to sit still: 0 = Not at all Becoming easily annoyed or irritable: 0 = Not at all Feeling afraid as if something awful might happen: 0 = Not at all Total AIXA-7 score (0-4 normal; 5-9 mild; 10-14 moderate; 15-21 severe): 0 Source: Developed by Drs. Giovani Newton, Jessy Montesinos, Tony Avery and colleagues, with an educational anshul from [employer]. AIXA-7 Assessment Billing AIXA-7 Assessment Tool: AIAX-7 Assessment 08738 Review of Systems Const All systems reviewed & are unremarkable except as noted in HPI and below Card Denies chest pain at rest, Denies chest pain with activity, Denies edema, Denies irregular heart rhythm, Denies claudication, Denies dyspnea, Denies dyspnea on exertion, Denies orthopnea, Denies paroxysmal nocturnal dyspnea and Denies slow heart rate Resp Denies cough, Denies dyspnea and Denies dyspnea on exertion GI Denies abdominal pain, Denies change in bowel habits, Denies excessive flatus, Denies nausea and Denies vomiting Denies urinary hesitancy, Denies urinary incontinence and Denies urinary urgency Musc Denies abnormal gait, Denies atrophy, Denies deformity and Denies limited range of motion Skin/Breast Denies bleeding lesions, Denies changing lesions and Denies rash Neuro Denies abnormal gait and Denies lack of coordination Physical exam (Primary Care) Vital Signs: Last Vital Signs BP 122/80 01/20/24 13:50 BMI result Body Mass Index 32.6 Tobacco/Smoking Status: Tobacco use Status Tobacco use date assessed 09/03/23 01/20/24 13:45 Patient Tobacco Use Status Never used Tobacco 01/20/24 13:45 e-Cigarette/Vaping Use Never Used 01/20/24 13:45 PHQ-9: PHQ-9 Score PHQ-9: Total score 0 01/20/24 14:07 Depression Screening Interpretation: Negative Thrive Assessment: Date of Thrive Assessment Date Thrive assessed 01/20/24 01/20/24 13:48 Currently or been in a relationship where the following occur: No concerns reported Const Orientation/consciousness: patient oriented x3 [facility] Head: Yes normal to inspection, Yes normocephalic and Yes atraumatic Ears: external ears normal Eyes General: appearance normal, both eyes and all related structures Eyelids: Yes eyelids normal Conjunctivae: conjunctivae normal Neck Neck: Yes normal visual inspection and Yes supple Resp Effort & Inspection: normal respiratory effort Auscultation: clear to auscultation bilaterally Cardio Jugular venous distension: no JVD Rate: regular rate Rhythm: regular rhythm Heart sounds: S1 normal heart sound present and S2 normal heart sound present GI Inspection: Yes normal to inspection Palpation (GI): Soft to palpation and nontender Auscultation: normal bowel sounds Skin General skin exam: no rashes or lesions noted Neuro General: patient oriented x3 and no focal motor deficits Extrem General: Yes full ROM Psych Appearance: grossly normal Immunizations Boostrix Tdap 2.5 Lf unit-8 mcg-5 Lf/0.5 mL intramuscular syringe Performing Provider: Nae Romo MD [facility] [place] [facility] Administered by: SAULO Acosta on 01/20/24 14:12 Dose Route Admin Location Dispensed Lot Number Expiration Date [facility] [employer] Talent Qualification Specialist 0.5 mL IM Right Deltoid 0.5 mL [id number] 02/21/26 28328-351-52 [id number] VIS Given Date VIS Provided VIS Publication Date 01/20/24 Single Vaccine 20 Eligibility Eligibility Date Funding Source Not [facility] Eligible 01/20/24 Private Assessment and Plan Assessment & Plan (1) Physical exam: Code(s): Z00.00 - Encounter for general adult medical examination without abnormal findings Plan: Repeat in a year. Orders: Orders Lipid Panel Today Z00.00 - Encounter for general adult medical examination without abnormal findings Comprehensive [place]. Panel Fast Today Z00.00 - Encounter for general adult medical examination without abnormal findings TDaP Immunization Today Z23 - Encounter for immunization Medications: New doxycycline hyclate 100 mg PO BID 10 caps 0RF 5 days Refilled ipratropium-albuterol 0.5 mg-3 mg(2.5 mg base)/3 mL 3 mL inhalation Q4H PRN 90 mL 0RF Wheezing Coding Level of Care Code Est Pt Prev Care 18-39y(26722) Diagnoses Physical exam Z00.00 Additional Codes AIXA-7 Assessment Billing - AIXA-7 Assessment Tool: AIXA-7 Assessment 05013 ([id number]) Time Spent (min) 30
[2024-01-20 13:50] VITALS: BP 122/80; BMI 32.6
== END 2024-01-20 14:19 | disposition home or self-care (01) ==
PROVIDERS: PCP Internal Medicine; Visit Provider Internal Medicine
DX: Z23 Encounter for immunization (principal); Z00.00 Encounter for general adult medical examination without abnormal findings

== ENCOUNTER → 2024-01-20 13:42 | Outpatient (BNVA) | payer OTHER, SELFPAY | PROVIDERS: PCP Internal Medicine; Visit Provider Internal Medicine | DX: Z00.00 Encounter for general adult medical examination without abnormal findings (principal); Z23 Encounter for immunization | CPT/HCPCS: 90471; 90715; 96127 ==

== ENCOUNTER 2024-03-25 12:52 | Outpatient (REF) | payer OTHER, SELFPAY ==
[2024-03-25 11:26] VITALS: PULSE 93; O2SAT 98
--- NOTE | 2024-03-25 13:00 | PFT_ITS ---
Indication: Asthma Spirometry [ FEV1 to FVC 66 pre bronchodilators and 77% post bronchodilators; FEV1 2.87 L; FVC 3.73 L. there was a significant response to bronchodilators noted. Also to note significant small airways disease. Maximum voluntary ventilation 87% predicted] Lung Volumes [ total lung capacity 88% predicted; residual volume 98% predicted] Diffusion Capacity [ DLCO 86% predicted] comparisons [ none] Interpretation [ there is a reversible obstructive ventilatory defect consistent with a diagnosis of asthma. Significant small airways disease also consistent with asthma. There was a significant response noted. Maximum voluntary ventilation was within normal limits. Lung volumes and diffusing capacity also within normal limits. Clinical correlation warranted. thank you] MARIO
== END 2024-03-25 12:53 | disposition home or self-care (01) ==
LOC: HO.RESP 12:52
PROVIDERS: PCP Internal Medicine; Visit Provider Internal Medicine
DX: J45.40 Moderate persistent asthma, uncomplicated (principal)
CPT/HCPCS: 94010; 94640; 94727; 94729

== ENCOUNTER → 2024-03-25 13:00 | Outpatient (BNV) | payer OTHER, SELFPAY | PROVIDERS: PCP Internal Medicine; Visit Provider Hospitalist | DX: J45.40 Moderate persistent asthma, uncomplicated (principal) | CPT/HCPCS: 94060; 94727; 94729 ==

== ENCOUNTER 2024-03-29 08:55 | Outpatient (AMB) | payer OTHER, SELFPAY ==
--- NOTE | 2024-03-29 09:04 | MHC.OFFVIS ---
Vital Signs 03/29/24 09:05 Height 5 ft 3 in Weight 188 lb 7.924 oz BMI 33.4 BP 102/60 Blood Pressure Location Lt brachial Position Sitting Pulse 68 Pulse Source Doppler Pulse Oximetry (%) 97 Oxygen Delivery Method Room Air Intake Visit Reasons: Asthma/PFT Follow Up Allergies methylprednisolone [From Solu-Medrol] Allergy (Severe, Verified 01/20/24 13:58) Shortness of Breath and wheezing prednisone Allergy (Severe, Verified 01/20/24 13:58) Wheezing Penicillins [PENICILLINS] Allergy (Unknown, Verified 01/20/24 13:58) UNKNOWN HPI HPI Asthma/PFT Follow Up: Details: 39-year-old gentleman, nonsmoker, with underlying history of asthma since childhood and multiple first-degree relatives with asthma with admission to [facility] in August of 2022 for asthma exacerbation. Of note, patient can not tolerate prednisone and does require dexamethasone systemic glucocorticoids. After the last office visit patient has been switched to Wixela 500 with improved, but still suboptimal control of his symptoms. He continues to use Zyrtec. He denies recent exacerbations. Patient has completed his immunologic testing and pulmonary function test. He is also complain of unrestful sleep and daytime sleepiness. [facility] Medical History Environmental allergies Asthma Surgical History No pertinent past surgical history Family History Mother Diabetes Father No problems noted. Social History Household Members: None Housing: House Do you presently have visiting nurse or other home services: No Alcohol intake: former Patient Tobacco Use Status: Never used Tobacco e-Cigarette/Vaping Use: Never Used Second Hand Smoke Exposure: No service: No Current occupational status: employed Current occupational exposures/hazards: No Cognitive needs: No Hearing needs: No Vision needs: Yes Review of Systems Const Denies daytime sleepiness, Denies excessive sweating, Denies fatigue, Denies fever(s), Denies lethargy, Denies malaise, Denies night sweats, Denies snoring and Denies weight loss Eyes Denies blurry vision and Denies itchy eyes ENT Denies nasal congestion, Denies post nasal drip, Denies sinus pain, Denies sinus pressure and Denies other ( Thrush) Card Denies chest pain, Denies pedal edema, Denies dyspnea, Denies orthopnea and Denies paroxysmal nocturnal dyspnea Resp Denies cough, Denies hemoptysis, Denies excessive phlegm production, Denies dyspnea, Denies snoring and Denies wheezing GI Denies abdominal pain and Denies heartburn Musc Denies myalgias, Denies arthralgias and Denies joint swelling Skin/Breast Denies rash Neuro Denies memory loss and Denies seizure-like activity Psych Denies abnormal sleep pattern, Denies anxiety and Denies memory loss Endo Denies excessive sweating, Denies fatigue and Denies heat intolerance Jesu/Lymph Denies easy bruising Aller/Immun Denies itchy eyes, Denies seasonal rhinorrhea and Denies wheezing Physical Exam Vital Signs: Last Vital Signs Pulse 68 03/29/24 09:05 BP 102/60 03/29/24 09:05 Pulse Ox 97 03/29/24 09:05 Oxygen Delivery Method Room Air 03/29/24 09:05 BMI result Body Mass Index 33.4 Const General: no acute distress and alert Nutritional Appearance: not obese Orientation/consciousness: Other orientation findings ( oriented) HEENT Head: Yes atraumatic Eyes General: appearance normal, both eyes and all related structures Sclerae: sclerae normal EOM: EOMs intact bilaterally Neck Neck: Yes supple Lymphatic: no lymphadenopathy noted Resp Effort & Inspection: normal respiratory effort and no use of accessory muscles Auscultation: wheezes (Expiratory bilateral) Cardio Rate: regular rate Rhythm: regular rhythm Heart sounds: no gallops, no murmurs and no rubs Skin General skin exam: other ( warm) Extrem General: No clubbing, No cyanosis and No edema Assessment & Plan Assessment & Plan (1) Moderate persistent asthma: Code(s): J45.40 - Moderate persistent asthma, uncomplicated Category: Medical Plan: Suboptimally controlled on Wixela. Will request Xolair approval. Continue baseline regimen of Wixela 500, duo nebs, and albuterol MDI. (2) SUZY (obstructive sleep apnea): Code(s): G47.33 - Obstructive sleep apnea (adult) (pediatric) Category: Medical Plan: Unrestful sleep, snoring, daytime sleepiness. [place] Sleepiness Scale score of 17. Will obtain home sleep study. (3) Environmental allergies: Code(s): Z91.09 - Other allergy status, other than to drugs and biological substances Category: Medical Plan: Results of immunologic testing reviewed, patient has significant allergic component to his symptoms. Expect to improve after Xolair initiation. Orders: Orders RT home sleep study Today G47.33 - Obstructive sleep apnea (adult) (pediatric) Medications: Changed From fluticasone propion-salmeterol 500-50 mcg/dose (Wixela Inhub) 1 inh inhalation BID 30 days 60 ea 6RF J45.40 - Moderate persistent asthma, uncomplicated To fluticasone propion-salmeterol 500-50 mcg/dose (Wixela Inhub) 1 inh inhalation BID 3 ea 4RF 90 days J45.40 - Moderate persistent asthma, uncomplicated Refilled albuterol sulfate 90 mcg/actuation 2 puffs inhalation Q6H PRN 1 ea 6RF wheezing Coding Level of Care Code Est Pt Level 4 (55739) Complex EM visit Add On G2211 Diagnoses Moderate persistent asthma J45.40 SUZY (obstructive sleep apnea) G47.33 Environmental allergies Z91.09
[2024-03-29 09:05] VITALS: BP 102/60; PULSE 68; O2SAT 97; BMI 33.4
== END 2024-03-29 09:21 | disposition home or self-care (01) ==
PROVIDERS: PCP Internal Medicine; Visit Provider Internal Medicine Pulmonary Disease
DX: J45.40 Moderate persistent asthma, uncomplicated (principal); G47.33 Obstructive sleep apnea (adult) (pediatric); Z91.09 Other allergy status, other than to drugs and biological substances
CPT/HCPCS: 99214

== ENCOUNTER 2024-05-11 09:25 | Outpatient (AMB) | payer OTHER, SELFPAY ==
[2024-05-11 09:34] VITALS: BP 138/84; PULSE 92; O2SAT 98
--- NOTE | 2024-05-11 09:34 | MHC.OFFVIS ---
Vital Signs 05/11/24 09:34 Weight 187 lb 6.287 oz BP 138/84 Blood Pressure Location Lt brachial Position Sitting Pulse 92 Pulse Source Pulse Oximeter Pulse Oximetry (%) 98 Oxygen Delivery Method Room Air Intake Visit Reasons: Asthma Nurses' Aide Required: No Allergies methylprednisolone [From Solu-Medrol] Allergy (Severe, Verified 05/11/24 09:38) Shortness of Breath and wheezing prednisone Allergy (Severe, Verified 05/11/24 09:38) Wheezing Penicillins [PENICILLINS] Allergy (Unknown, Verified 05/11/24 09:38) UNKNOWN Medication List - Last Reconciled 05/11/24 by Rosita Lombardo, RESERVATIONS SPECIALIST albuterol sulfate 90 mcg/actuation 2 puffs inhalation Q6H PRN cetirizine (Zyrtec) 10 mg PO DAILY PRN 90 days epinephrine (EpiPen 2-Luis) 0.3 mg (0.3 mL) IM Q4H PRN fluticasone propion-salmeterol 500-50 mcg/dose (Wixela Inhub) 1 inh inhalation BID 90 days ipratropium-albuterol 0.5 mg-3 mg(2.5 mg base)/3 mL 3 mL inhalation Q4H PRN HPI HPI Asthma: Details: 39-year-old gentleman, nonsmoker, with underlying history of asthma since childhood and multiple first-degree relatives with asthma with admission to [facility] in August of 2022 for asthma exacerbation. Of note, patient can not tolerate prednisone and does require dexamethasone systemic glucocorticoids. After the last office visit patient has been switched to Wixela 500 with improved, but still suboptimal control of his symptoms. He continues to use Zyrtec. He denies recent exacerbations. Patient has started Xolair, however he only had 1 injection so far. He does complain of worsening allergic rhinitis. He did not complete his home sleep study yet. [facility] [place] Medical History Environmental allergies Asthma Surgical History No pertinent past surgical history Family History Mother Diabetes Father No problems noted. Social History Household Members: None Housing: House Do you presently have visiting nurse or other home services: No Alcohol intake: former Patient Tobacco Use Status: Never used Tobacco e-Cigarette/Vaping Use: Never Used Second Hand Smoke Exposure: No service: No Current occupational status: employed Current occupational exposures/hazards: No Cognitive needs: No Hearing needs: No Vision needs: Yes Review of Systems Const Denies daytime sleepiness, Denies excessive sweating, Denies fatigue, Denies fever(s), Denies lethargy, Denies malaise, Denies night sweats, Denies snoring and Denies weight loss Eyes Denies blurry vision and Denies itchy eyes ENT Denies nasal congestion, Reports post nasal drip, Denies sinus pain, Denies sinus pressure and Denies other ( Thrush) Card Denies chest pain, Denies pedal edema, Denies dyspnea, Denies orthopnea and Denies paroxysmal nocturnal dyspnea Resp Denies cough, Denies hemoptysis, Denies excessive phlegm production, Denies dyspnea, Denies snoring and Denies wheezing GI Denies abdominal pain and Denies heartburn Musc Denies myalgias, Denies arthralgias and Denies joint swelling Skin/Breast Denies rash Neuro Denies memory loss and Denies seizure-like activity Psych Denies abnormal sleep pattern, Denies anxiety and Denies memory loss Endo Denies excessive sweating, Denies fatigue and Denies heat intolerance Jesu/Lymph Denies easy bruising Aller/Immun Denies itchy eyes, Denies seasonal rhinorrhea and Denies wheezing Physical Exam Vital Signs: Last Vital Signs Pulse 92 05/11/24 09:34 BP 138/84 05/11/24 09:34 Pulse Ox 98 05/11/24 09:34 Oxygen Delivery Method Room Air 05/11/24 09:34 Const General: no acute distress and alert Nutritional Appearance: not obese Orientation/consciousness: Other orientation findings ( oriented) HEENT Head: Yes atraumatic Eyes General: appearance normal, both eyes and all related structures Sclerae: sclerae normal EOM: EOMs intact bilaterally Neck Neck: Yes supple Lymphatic: no lymphadenopathy noted Resp Effort & Inspection: normal respiratory effort and no use of accessory muscles Auscultation: clear to auscultation bilaterally Cardio Rate: regular rate Rhythm: regular rhythm Heart sounds: no gallops, no murmurs and no rubs Skin General skin exam: other ( warm) Extrem General: No clubbing, No cyanosis and No edema Assessment & Plan Assessment & Plan (1) Severe persistent asthma: Code(s): J45.50 - Severe persistent asthma, uncomplicated Category: Medical Plan: Suboptimal control on Wixela 500, duo nebs, and albuterol MDI. Expect to improve on Xolair. (2) Environmental allergies: Code(s): Z91.09 - Other allergy status, other than to drugs and biological substances Category: Medical Plan: Expect to improve on Xolair. (3) SUZY (obstructive sleep apnea): Code(s): G47.33 - Obstructive sleep apnea (adult) (pediatric) Category: Medical Plan: Sleep study is pending. (4) Allergic rhinitis: Code(s): J30.9 - Allergic rhinitis, unspecified Category: Medical Plan: Will add nasal ipratropium. Medications: New ipratropium bromide administer into each nostril 2 sprays intranasal TID-QID PRN 15 mL 3RF Postnasal drip Coding Level of Care Code Est Pt Level 4 (96228) Complex EM visit Add On G2211 Diagnoses Severe persistent asthma J45.50 Environmental allergies Z91.09 SUZY (obstructive sleep apnea) G47.33 Allergic rhinitis J30.9
--- OUTSIDE RECORDS SUMMARY | 2024-05-11 09:38 | XMS_ITS ---
Author Name [facility] Organization Unknown Results Test Name/Text Value Interpretation Date Range Source HCO3 SerPl-sCnc 28mmol/L Normal [id number] 21 - 32 Y [facility] Glucose SerPl-mCnc 126mg/dL Above high normal [id number] 65 - 110 [facility] eGFRcr SerPlBld CKD-EPI 2020 60mL/min/1.73 m2 Normal [id number] - [facility] Creat SerPl-mCnc 0.73mg/dL Normal [id number] 0.7 - 1.3 [facility] Calcium SerPl-mCnc 9.3mg/dL Normal [id number] 8.5 - 10 .1 [facility] Sodium SerPl-sCnc 140mmol/L Normal [id number] 136 - 145 [facility] BUN SerPl-mCnc 11mg/dL Normal [id number] 7 - 18 [facility] Anion Gap3 SerPl-sCnc 7mmol/L Normal [id number] 5 - 15 [facility] Chloride SerPl-sCnc 105mmol/L Normal [id number] 98 - 10 7 [facility] Potassium SerPl-sCnc 4.5mmol/L Normal [id number] 3.5 - 5.1 [facility] Magnesium SerPl-mCnc 2.4mg/dL Normal [id number] 1.6 - 2.6 [facility] Phosphate SerPl-mCnc 4.5mg/dL Normal [id number] 2.5 - 4.9 [facility] MCV RBC Auto 82.2fL Normal [id number] 80 - 100 [facility] RBC # Bld Auto 5.61M/uL Normal [id number] 4 - 6 [facility] WBC # Bld Auto 15.1u0734/uL Above high normal [id number] 4 - 11 [facility] RDW RBC Auto-Rto 13.2% Normal 11 - 15 [facility] Hct VFr Bld Auto 46.1% Normal 38.5 - 50 [facility] Platelet # Bld Auto 554b5412/uL Normal 150 - 420 [facility] PMV Bld Auto 10.1fL Normal 8 - 12 [facility] Hgb Bld-mCnc 15.1g/dL Normal 13.2 - 17.1 [facility] MCH RBC Qn Auto 26.9pg Below low normal 27 - 33 [facility] MCHC RBC Auto-mCnc 32.8g/dL Normal 31 - 36 [facility] Glucose SerPl-mCnc 139mg/dL Above high normal 65 - 110 [facility] AST SerPl w P-5'-P-cCnc 11U/L Below low normal 15 - 37 [facility] Calcium SerPl-mCnc 10.1mg/dL Normal 8.5 - 10 .1 [facility] ALT SerPl w/o P-5'-P-cCnc 28U/L Normal 16 - 61 [facility] Sodium SerPl-sCnc 139mmol/L Normal 136 - 145 [facility] BUN SerPl-mCnc 13mg/dL Normal 7 - 18 [facility] ALP SerPl-cCnc 67U/L Normal 45 - 117 [facility] Globulin Plas-mCnc 3.7g/dL Normal 2.5 - 5 [facility] HCO3 SerPl-sCnc 25mmol/L Normal 21 - 32 Y [facility] eGFRcr SerPlBld CKD-EPI 2020 60mL/min/1.73 m2 Normal - [facility] Creat SerPl-mCnc 0.9mg/dL Normal 0.7 - 1.3 [facility] Anion Gap3 SerPl-sCnc 7mmol/L Normal 5 - 15 [facility] Albumin SerPl BCG-mCnc 4.1g/dL Normal 3.4 - 5 [facility] Bilirub SerPl-mCnc 0.3mg/dL Normal - 1 [facility] Chloride SerPl-sCnc 107mmol/L Normal 98 - 10 7 [facility] Potassium SerPl-sCnc 4.2mmol/L Normal 3.5 - 5.1 [facility] Prot SerPl-mCnc 7.8g/dL Normal 6.4 - 8.2 Y [facility] TSH SerPl DL<=0.005 mIU/L-aCnc 0.48uIU/mL Normal 0.36 - 3.74 [facility] HDLc SerPl-mCnc 44mg/dL Normal - Y [facility] Trigl SerPl-mCnc 95mg/dL Normal - [facility] Cholest SerPl-mCnc 171mg/dL Normal - [facility] LDLc SerPl Calc-mCnc 109mg/dL Above high normal 2 - [facility] Phosphate SerPl-mCnc 3.5mg/dL Normal 2.5 - 4.9 [facility] Bilirub Direct SerPl-mCnc 0.11mg/dL Normal 0 - 0.2 [facility] Magnesium SerPl-mCnc 2.2mg/dL Normal 1.6 - 2.6 [facility] MCV RBC Auto 83fL Normal [id number] 80 - 100 [facility] Lymphocytes # Bld Auto 1.36g3337/uL Normal 0.6 - 3.7 [facility] WBC # Bld Auto 16.1z8301/uL Above high normal [id number] 4 - 11 [facility] Monocytes/leuk NFr Bld Auto 3% Below low normal [id number] 4 - 12 [facility] Imm Granulocytes/leuk NFr Bld Auto 1.2% Above high normal [id number] 0 - 1 [facility] Platelet # Bld Auto 096h4952/uL Normal [id number] 150 - 420 [facility] PMV Bld Auto 10.3fL Normal [id number] 8 - 12 [facility] MCH RBC Qn Auto 27.3pg Normal [id number] 27 - 33 Y [facility] Eosinophil # Bld Auto 0.12b1238/uL Normal [id number] 0 - 1 [facility] Neutrophils/leuk NFr Bld Auto 88.7% Above high normal [id number] 39 - 72 [facility] Imm Granulocytes # Bld Auto 0.9i5573/uL Normal [id number] 0 - 0.3 [facility] RBC # Bld Auto 5.71M/uL Normal [id number] 4 - 6 [facility] Monocytes # Bld Auto 0.7b6194/uL Normal [id number] 0 - 1 [facility] RDW RBC Auto-Rto 12.8% Normal [id number] 11 - 15 [facility] Lymphocytes/leuk NFr Bld Auto 6.8% Below low normal [id number] 17 - 50 [facility] Eosinophil/leuk NFr Bld Auto 0.1% Normal [id number] 0 - 5 [facility] nRBC/100 WBC Bld Auto-Rto 0% Normal [id number] 0 - 1 [facility] Hct VFr Bld Auto 47.4% Normal [id number] 38.5 - 50 [facility] BKR WAM ABSOLUTE NEUTROPHIL COUNT. 14.81r3871/uL Above high normal [id number] 2 - 7.6 [facility] BKR WAM BASOPHIL ABSOLUTE COUNT. 0.55p6327/uL Normal [id number] 0 - 1 [facility] Hgb Bld-mCnc 15.6g/dL Normal [id number] 13.2 - 17.1 [facility] MCHC RBC Auto-mCnc 32.9g/dL Normal [id number] 31 - 36 [facility] Basophils/leuk NFr Bld Auto 0.2% Normal [id number] 0 - 1.4 [facility] D dimer FEU PPP-mCnc 0.35mg/LFEU Normal [id number] - 0. 5 [facility] Magnesium SerPl-mCnc 2mg/dL Normal [id number] 1.6 - 2.6 [facility] Potassium SerPl-sCnc 3.7mmol/L Normal [id number] 3.5 - 5.1 [facility] Glucose SerPl-mCnc 139mg/dL Above high normal [id number] 65 - 110 [facility] BUN SerPl-mCnc 10mg/dL Normal [id number] 7 - 18 [facility] Chloride SerPl-sCnc 108mmol/L Above high normal [id number] 98 - 107 [facility] Calcium SerPl-mCnc 9.1mg/dL Normal [id number] 8.5 - 10 .1 [facility] Creat SerPl-mCnc 1mg/dL Normal [id number] 0.7 - 1.3 [facility] Sodium SerPl-sCnc 140mmol/L Normal [id number] 136 - 145 [facility] eGFRcr SerPlBld CKD-EPI 2020 60mL/min/1.73 m2 Normal [id number] - [facility] Anion Gap3 SerPl-sCnc 4mmol/L Below low normal [id number] 5 - 15 [facility] HCO3 SerPl-sCnc 28mmol/L Normal [id number] 21 - 32 Y [facility] MCH RBC Qn Auto 27.1pg Normal [id number] 27 - 33 Y [facility] RBC # Bld Auto 5.86M/uL Normal [id number] 4 - 6 [facility] Lymphocytes # Bld Auto 2.50e6290/uL Normal [id number] 0.6 - 3.7 [facility] Neutrophils/leuk NFr Bld Auto 57% Normal [id number] 39 - 72 [facility] Lymphocytes/leuk NFr Bld Auto 28.5% Normal [id number] 17 - 50 [facility] PMV Bld Auto 9.9fL Normal [id number] 8 - 12 [facility] BKR WAM BASOPHIL ABSOLUTE COUNT. 0.03r1199/uL Normal [id number] 0 - 1 [facility] Imm Granulocytes # Bld Auto 0.97e0380/uL Normal [id number] 0 - 0.3 [facility] Monocytes/leuk NFr Bld Auto 6.8% Normal [id number] 4 - 12 [facility] Basophils/leuk NFr Bld Auto 0.6% Normal [id number] 0 - 1.4 [facility] nRBC/100 WBC Bld Auto-Rto 0% Normal [id number] 0 - 1 [facility] MCHC RBC Auto-mCnc 33.3g/dL Normal [id number] 31 - 36 [facility] Monocytes # Bld Auto 0.99i8049/uL Normal [id number] 0 - 1 [facility] BKR WAM ABSOLUTE NEUTROPHIL COUNT. 4.56g2977/uL Normal [id number] 2 - 7.6 [facility] Hct VFr Bld Auto 47.7% Normal [id number] 38.5 - 50 [facility] Eosinophil/leuk NFr Bld Auto 6.5% Above high normal [id number] 0 - 5 [facility] Platelet # Bld Auto 133t5902/uL Normal [id number] 150 - 420 [facility] RDW RBC Auto-Rto 12.6% Normal [id number] 11 - 15 [facility] Imm Granulocytes/leuk NFr Bld Auto 0.6% Normal [id number] 0 - 1 [facility] Eosinophil # Bld Auto 0.49n2839/uL Normal [id number] 0 - 1 [facility] Hgb Bld-mCnc 15.9g/dL Normal [id number] 13.2 - 17.1 [facility] MCV RBC Auto 81.4fL Normal [id number] 80 - 100 [facility] WBC # Bld Auto 8.9z0110/uL Normal [id number] 4 - 11 [facility] History of Medication Use Medication Directions Dispensed Refills Start Date End Date Status methylPREDNISolone (Solu-MEDROL) 40 mg in water for injection, sterile injection 40 mg, Intravenous, Every 12 Hours Scheduled, First dose (after last modification) on 12/22/22 at 2100Doses equal and LESS THAN 125 mg - give IV Push. ?Doses?GREATE R THAN 125 mg - give IVPB. ?If ordered IV Push: Administer undiluted over 3 minutes.??Reconstit [place] a vial with 1 mL of sterile fabian 3 aborted albuterol sulfate 90 mcg/actuation HFA aerosol inhaler Inhale 2 puffs into the lungs every 6 (six) hours as needed for wheezing. 3 aborted budesonide-formoteroL (SYMBICORT) 80-4.5 mcg/actuation HFA aerosol inhaler Inhale 2 puffs into the lungs 2 (two) times daily. Acute asthma exacerbation J45.901 3 aborted ipratropium-albuteroL (DUO-NEB) 0.5 mg-3 mg(2.5 mg base)/3 mL nebulizer solution Starting on 12/21/22 at 1033, For 1 doseCreated by cabinet override??Common Side Effects: Tachycardia, nervousness, bronchitis.Created by cabinet override 3 active methylPREDNISolone PF (Solu-MEDROL) injection 125 mg 125 mg, Intravenous, ONCE, On 12/21/22 at 1045, For 1 doseDoses equal and LESS THAN 125 mg - give IV Push. ?Doses?GREATE R THAN 125 mg - give IVPB. ?If ordered IV Push: Administer undiluted over 3 minutes. 3 completed cetirizine (ZyrTEC) tablet 10 mg 10 mg, Oral, Nightly, First dose on 12/21/22 at 2100 3 aborted methylPREDNISolone (MEDROL DOSEPACK) 4 mg tablet follow package directions 3 active albuterol neb leonid 2.5 mg/3 mL (0.083%) (PROVENTIL,VENTOLIN) 3 aborted sodium chloride 0.9 % flush 3 mL 3 mL, IV Push, PRN for Line Care, other, PIV Line Care: Before and after administration of intravenous fluids, medications and blood products and/or blood specimen collection; As needed to assess catheter patency, Starting on 12/21/22 at 1620 3 aborted acetaminophen (TYLENOL) tablet 650 mg 650 mg, Oral, EVERY 6 HOURS PRN, temperature > 100.4 F (38 C), Starting on 12/21/22 at 1621Maximum dose of acetaminophen is 4000 mg from all sources in 24 hours. 3 aborted loratadine (CLARITIN) 10 mg tablet Take 1 tablet (10 mg total) by mouth daily. 3 aborted tiotropium bromide (SPIRIVA RESPIMAT) 2.5 mcg/actuation mist for inhalation Inhale 2 Inhalation into the lungs daily. Acute asthma exacerbation J45.901 3 active WIXELA INHUB 250-50 mcg/dose blister powder for inhalation Inhale 1 puff into the lungs 2 (two) times daily. 3 active albuterol neb leonid 2.5 mg/3 mL (0.083%) (PROVENTIL,VENTOLIN) 2.5 mg, Nebulization, EVERY 2 HOURS PRN, shortness of breath, Starting on 12/22/22 at 0934Common Side Effects: Tachycardia, nervousness.Respira tory Therapist will implement [facility] Nebulizer Frequency Adjustment protocol unless otherwise specified (Excluding Emergency Department and Outpatient Cl 3 aborted enoxaparin (LOVENOX) syringe 40 mg 40 mg, Subcutaneous, Every 24 Hours Scheduled (Daily), First dose on 12/22/22 at 0900Contraindicated with epidural use. Common Side Effects: Bruising, minor and major bleeding. 3 aborted melatonin tablet 3 mg 3 mg, Oral, Nightl y PRN, insomnia, Starting on 12/21/22 at 1621Recommended to administer at least 60 minutes prior to intended bedtime 3 aborted albuterol (PROVENTIL,VENTOLIN) 2 mg/5 mL syrup Take 5 mLs (2 mg total) by mouth 3 (three) times daily. 3 aborted methylPREDNISolone PF (Solu-MEDROL) 125 mg/2 mL injection Starting on 12/21/22 at 1035, For 1 doseCreated by cabinet overrideCreated by cabinet override 3 completed ipratropium-albuteroL (DUO-NEB) 0.5 mg-3 mg(2.5 mg base)/3 mL nebulizer solution Take 3 mLs by nebulization every 4 (four) hours as needed for wheezing. 3 aborted ondansetron (ZOFRAN-ODT) disintegrating tablet 4 mg [Order 1 Start] Name: ondansetron (ZOFRAN-ODT) disintegrating tablet 4 mg Signed Summary: 4 mg, Oral, EVERY 6 HOURS PRN, nausea or vomiting, Starting on 12/21/22 at 1621First line therapy.?Common Side Effects: Lightheaded, stomach upset, headache. [Order 1 End] [Order 2 Start] Name: ondansetro 3 aborted methylPREDNISolone (Solu-MEDROL) 60 mg in water for injection, sterile injection 60 mg, Intravenous, ONCE, On 12/22/22 at 0600, For 1 doseDoses equal and LESS THAN 125 mg - give IV Push. ?Doses?GREATE R THAN 125 mg - give IVPB. ?If ordered IV Push: Administer undiluted over 3 minutes.??[place]stit [place] a vial with 1 mL of sterile water. 3 completed albuterol (ACCUNEB) 0.63 mg/3 mL nebulizer solution Take 3 mLs by nebulization every 6 (six) hours as needed for wheezing. 3 aborted polyethylene glycol (MIRALAX) packet 17 g 17 g, Oral, Nightly PRN, constipation, Constipation, Starting on 12/21/22 at 1621Dissolve in 4 - 8 oz of water, juice, soda, coffee, or tea.??First line therapy??Common Side Effects: Diarrhea, discomfort, cramps. 3 aborted Problems Problem Status Onset Date Problem Type Date of Resoluti on Source Hypoxia active EncounterDiagnosisAct [facility] Mild intermittent asthma with acute exacerbation active EncounterDiagnosisAct [facility] Acute asthma exacerbation active 2022-12-21 ProblemAct [facility]
== END 2024-05-11 09:47 | disposition home or self-care (01) ==
PROVIDERS: PCP Internal Medicine; Visit Provider Internal Medicine Pulmonary Disease
DX: J45.50 Severe persistent asthma, uncomplicated (principal); Z91.09 Other allergy status, other than to drugs and biological substances; G47.33 Obstructive sleep apnea (adult) (pediatric); J30.9 Allergic rhinitis, unspecified
CPT/HCPCS: 99214

== ENCOUNTER → 2024-05-11 12:45 | Outpatient (REF) | payer OTHER, SELFPAY | LOC: HO.SL 12:45 | PROVIDERS: PCP Internal Medicine; Visit Provider Internal Medicine Pulmonary Disease | DX: J45.50 Severe persistent asthma, uncomplicated (principal); J30.9 Allergic rhinitis, unspecified; Z91.09 Other allergy status, other than to drugs and biological substances; G47.33 Obstructive sleep apnea (adult) (pediatric) | CPT/HCPCS: 95806 ==

== ENCOUNTER → 2024-06-09 10:33 | Outpatient (BNVA) | payer OTHER, SELFPAY | PROVIDERS: PCP Internal Medicine; Visit Provider Internal Medicine Pulmonary Disease ==

== ENCOUNTER 2024-06-12 10:24 | Outpatient (REF) | payer OTHER, SELFPAY ==
[2024-06-12 10:44] LABS: MANUAL DIFF FLAG NO
[2024-06-12 10:52] LABS: Basophils Absolute Auto 0.1 X10*3/uL (0.0-0.2); Basophils Percent Auto 0.7 % (0-2); Eosinophils Absolute Auto 1.1 X10*3/uL (0.0-0.4); Eosinophils Percent Auto 12.9 % (0-4); Hematocrit 44.2 % (42.0-52.0); Imm Gran Abs Auto 0.04 X10*3/uL (0.00-0.03); Imm Gran Pct Auto 0.5 % (0.0-0.4); Lymphocytes Absolute Auto 1.9 X10*3/uL (1.2-4.9); Lymphocytes Percent Auto 23.1 % (20-40); Mean Corpuscular HGB Conc 33.9 g/dl (31.0-36.0); Mean Corpuscular Hemoglobin 27.3 pg (27.0-33.0); Mean Corpuscular Volume 80.4 fL (80.0-98.0); Mean Platelet Volume 9.6 fL (9.4-12.4); Monocytes Absolute Auto 0.5 X10*3/uL (0.1-1.2); Monocytes Percent Auto 6.3 % (2-11); Neutrophils Absolute Auto 4.7 x10*3/uL (2.0-8.3); Neutrophils Percent Auto 56.5 % (45-73); Platelet Count 259 X10*3/uL (160-400); Red Cell Distribution Width 12.7 % (11.0-16.0); White Blood Count 8.3 X10*3/uL (4.8-10.8)
[2024-06-12 12:00] LABS: Alanine Aminotransferase 148 U/L (0-40); Albumin Level 4.7 g/dL (3.5-5.0); Alkaline Phosphatase 73 U/L (39-117); Anion Gap 13 (12-20); Aspartate Amino Transferase 58 U/L (5-37); Bilirubin Total 0.9 mg/dL (0.0-1.0); Blood Urea Nitrogen 11 mg/dL (9-16); Calcium 9.6 mg/dL (8.4-10.2); Carbon Dioxide 26 mmol/L (22-29); Chloride 105 mmol/L (96-108); Cholesterol 209 mg/dL (<200); Estimated Glomerular Filt Rate > 60; Glucose Fasting 103 mg/dL (60-99); HDL Cholesterol 35 mg/dL (>40); LDL Cholesterol Calculated 139 mg/dL (<100); Potassium 4.1 mmol/L (3.3-5.1); Sodium 140 mmol/L (135-145); Total Protein 7.9 g/dL (6.5-8.0); Triglycerides 177 mg/dL (<150)
== END 2024-06-12 10:25 | disposition home or self-care (01) ==
LOC: HO.LAB 10:24
PROVIDERS: PCP Internal Medicine; Visit Provider Internal Medicine
DX: J45.40 Moderate persistent asthma, uncomplicated (principal); J30.9 Allergic rhinitis, unspecified; E66.9 Obesity, unspecified; Z68.33 Body mass index [BMI] 33.0-33.9, adult
CPT/HCPCS: 36415; 80053; 80061; 85025

== ENCOUNTER 2024-09-28 14:23 | Outpatient (REF) | payer OTHER, SELFPAY ==
[2024-09-28 16:18] LABS: Alanine Aminotransferase 236 U/L (0-40); Albumin Level 4.8 g/dL (3.5-5.0); Alkaline Phosphatase 75 U/L (39-117); Anion Gap 12 (12-20); Aspartate Amino Transferase 94 U/L (5-37); Bilirubin Direct 0.2 mg/dL (0.0-0.5); Bilirubin Total 0.7 mg/dL (0.0-1.0); Blood Urea Nitrogen 12 mg/dL (9-16); Calcium 9.7 mg/dL (8.4-10.2); Carbon Dioxide 28 mmol/L (22-29); Chloride 104 mmol/L (96-108); Cholesterol 223 mg/dL (<200); Estimated Glomerular Filt Rate > 60; Glucose Fasting 121 mg/dL (60-99); HDL Cholesterol 34 mg/dL (>40); LDL Cholesterol Calculated 121 mg/dL (<100); Potassium 3.6 mmol/L (3.3-5.1); Sodium 140 mmol/L (135-145); Total Protein 7.5 g/dL (6.5-8.0); Triglycerides 341 mg/dL (<150)
[2024-09-29 09:14] LABS: HBS Num1 51.75 mIU/mL (0-7.99); HBc Num1 0.08 S/CO (0.00-0.79); HBsAGNum1 0.31 S/CO (0.00-0.99); Hepatitis A Antibody IgM 0.14 Index (0-0.79); Hepatitis B Core Antibody Nonreactive (Nonreactive); Hepatitis B Surface Antigen Negative (Negative); ~HepC Num1 0.07 S/CO (0.00-0.79); ~Hepatitis A Antibody IgM Nonreactive (Nonreactive); ~Hepatitis B Surface Antibody REACTIVE (Nonreactive); ~Hepatitis C Antibody Nonreactive (Nonreactive)
== END 2024-09-28 14:24 | disposition home or self-care (01) ==
LOC: HO.LAB 14:23
PROVIDERS: PCP Internal Medicine; Visit Provider Nurse Practitioner Family
DX: Z00.00 Encounter for general adult medical examination without abnormal findings (principal); R74.01 Elevation of levels of liver transaminase levels; R79.89 Other specified abnormal findings of blood chemistry
CPT/HCPCS: 36415; 80053; 80061; 80076; 82248; 86704; 86706; 86709; 86803; 87340

== ENCOUNTER 2024-09-28 14:23 | Outpatient (AMB) | payer OTHER, SELFPAY ==
--- NOTE | 2024-09-28 14:24 | A.OFFVIS_ITS ---
Vital Signs 09/28/24 14:31 Height 5 ft 4 in Weight 198 lb 13.711 oz BMI 34.1 BP 148/64 H Blood Pressure Location Rt brachial Position Sitting Pulse 104 H Pulse Source Pulse Oximeter Pulse Oximetry (%) 95 Oxygen Delivery Method Room Air Intake Visit Reasons: Elevated LFTs Intake Note: NEW PATIENT for eval of elevated LFTs. Labs done per PCP 06/12/24. CC; Pt denies any GI sx or concerns at this time and is here per his PCP referral. Pt vitals are slightly elevated as he was in a amado because he accidentally went to the wrong office. Inside Wireman Required: No Accompanied by: Self / Same As Patient Allergies methylprednisolone [From Solu-Medrol] Allergy (Severe, Verified 09/28/24 14:28) Shortness of Breath and wheezing prednisone Allergy (Severe, Verified 09/28/24 14:28) Wheezing Penicillins [PENICILLINS] Allergy (Unknown, Verified 09/28/24 14:28) UNKNOWN HPI HPI Elevated LFTs: Details: 39-year-old male with past medical history of SUZY, asthma, obesity is here today for initial consultation. Patient is sent to us for consultation. Transaminitis found on labs in June. Patient denies any abdominal pain or discomfort. No family history of liver disease or liver cirrhosis. Patient admits to gaining over 30 lb in the last couple years. Patient denies drinking any alcohol. Not taking any medications that would affect his liver. Patient denies any GI concerning symptoms today. [facility] Medical History Environmental allergies Asthma Surgical History No pertinent past surgical history Family History Mother Diabetes Father No problems noted. Social History Household Members: None Housing: House Do you presently have visiting nurse or other home services: No Alcohol intake: former Patient Tobacco Use Status: Never used Tobacco e-Cigarette/Vaping Use: Never Used Second Hand Smoke Exposure: No service: No Current occupational status: employed Current occupational exposures/hazards: No Cognitive needs: No Hearing needs: No Vision needs: Yes Review of Systems Const Denies weight gain and Denies weight loss ENT Reports no additional complaints, Denies dysphagia and Denies odynophagia Card Reports no additional complaints Resp Reports no additional complaints GI Denies abdominal pain, Denies belching, Denies melena, Denies bloating, Denies change in bowel habits, Denies dysphagia, Denies excessive flatus, Denies dyspepsia, Denies heartburn, Denies diarrhea, Denies loose stools, Denies nausea, Denies odynophagia and Denies vomiting Reports no additional complaints Musc Reports no additional complaints Neuro Reports no additional complaints Psych Reports no additional complaints Endo Reports no additional complaints Physical Exam Vital Signs: Last Vital Signs Pulse 104 H 09/28/24 14:31 BP 148/64 H 09/28/24 14:31 Pulse Ox 95 09/28/24 14:31 Oxygen Delivery Method Room Air 09/28/24 14:31 BMI result Body Mass Index 34.1 Const General: healthy appearing and no acute distress Nutritional Appearance: obese Orientation/consciousness: patient oriented x3 Resp Effort & Inspection: normal respiratory effort, able to speak in complete sentences, no tracheal deviation and symmetric chest movement Auscultation: clear to auscultation bilaterally Cardio Rate: regular rate GI Inspection: Yes normal to inspection, No distended and Yes obesity Palpation (GI): Soft to palpation, not firm, nontender and No hepatosplenomegaly present Auscultation: normal bowel sounds General: Yes no CVA tenderness Back/Spine/Pelvis Back: no CVA tenderness Skin General skin exam: elasticity normal, turgor normal and dry skin Neuro General: patient oriented x3 Psych Appearance: grossly normal Mental Status: mental status grossly normal Results Reviewed Results Reviewed: Laboratory Tests 06/12/24 10:43 Total Bilirubin 0.9 AST 58 H ALT 148 H Alkaline Phosphatase 73 Assessment & Plan Assessment & Plan (1) Transaminitis: Code(s): R74.01 - Elevation of levels of liver transaminase levels Category: Medical Plan Will recheck liver enzymes and if trending up we will send him for more blood work to rule out the cause. Patient will get ultrasound with elastography. If levels will continue to be elevated we will send him for additional blood work to rule out any autoimmune disorders that could cause. Patient will follow low fat, low-salt, low carb and high-protein diet. Most likely nonalcoholic fatty liver disease. Patient will try to lose weight. Follow-up in 6 months, sooner on as needed basis. He is agreeable to this plan and verbalizes understanding of instructions. He was given the opportunity to ask questions and all questions answered. Thank you for allowing me to participate in his care Orders: Orders Liver Panel Today R74.01 - Elevation of levels of liver transaminase levels US abdomen comp w elastography Today R79.89 - Other specified abnormal findings of blood chemistry Hepatitis A,B,C Profile Today R79.89 - Other specified abnormal findings of blood chemistry Coding Level of Care Code New Pt Level 3 (64246) Diagnoses Transaminitis R74.01 Time Spent (min) 40 Comment 30 minutes spent with patient and additional 10 minutes spent reviewing his records
--- OUTSIDE RECORDS SUMMARY | 2024-09-28 14:28 | XMS_ITS | Clinical Summary ---
Author Organization [facility] 52 [facility] Address [address] [place] [address] Care Team Providers Care Publishing Editor Name Role Phone Unavailable Primary Care Provider Unavailabl e Allergies Active Allergy Reactions Criticality Noted Date Comments Penicillins Shortness Of Breath High 12/21/2022 Prednisone Shortness Of Breath High 12/21/2022 Medications ipratropium-albut Van (DUO-NEB) 0.5 mg-3 mg(2.5 mg base)/3 mL nebulizer solutionIndicatio ns:chronic obstructive pulmonary disease with bronchospasms Take 3 mLs by nebulization every 4 (four) hours as needed for wheezing or shortness of breath. Acute asthma exacerbation J45 done 901 180 mL 1 12/25/19 Active albuterol sulfate 90 mcg/actuation HFA aerosol inhalerIndication s:acute asthma attack Inhale 2 puffs into the lungs every 6 (six) hours while awake. Acute asthma exacerbation J45 901 6.7 g 1 12/25/19 23 Active fluticasone propion-salmetero L (ADVAIR DISKUS) 250-50 mcg/dose blister powder for inhalation Inhale 1 puff into the lungs 2 (two) times daily. 60 each 2 12/26/19 Active Active Problems Problem Noted Date Diagnosed Date Acute asthma exacerbation 12/21/2022 Social History Tobacco Use Types Packs/Day Years Used Date Smoking Tobacco: Never Tobacco Cessation:Counseling Given: Not Answered Overall Financial Resource Strain (CARDIA) Answe r Date Recorded How hard is it for you to pa y for the very basics like food, housing, medical care, and heating? Not hard at all 12/21/2022 PHQ-2 Answer Date Recorded PHQ-2 Total Score 0 12/21/2022 Hunger Vital Sign Answer Date Recorded Within the past 12 months, y ou worried that your food would run out before you got the money to buy more. Never true 12/22/19 23 Within the past 12 months, t he food you bought just didn't last and you didn't have money to get more. Never true 12/21/2022 PRAPARE - Transportation Answer Date Re corded In the past 12 months, has l ack of transportation kept you from medical appointments or from getting medications? No 12/03 In the past 12 months, has l ack of transportation kept you from meetings, work, or from getting things needed for daily living? No 12/21/2022 Housing Stability Answer Date Recorded What is your living situation today? I have a [facility] place to live 12/21/2022 Housing Stability Not on file 12/21/2022 Interpersonal Safety Answer Date Record ed Is there anyone in your life that is hurting or threatening you in anyway? Not on file 12/21/2022 Physical Indicators of Abuse No evidence of phys ical abuse 12/21/2022 Sex and Gender Information Value Date Recorded Sex Assigned at Not on file Legal Sex Male 10:24 AM EDT Gender Identity Male 12/21/2022 10:27 AM EDT Sexual Orientation Not on file Last Filed Vital Signs Vital Sign Reading Time Taken Comments Blood Pressure 113/75 12/24/2022 5:49 AM EDT Pulse 72 12/24/2022 5:49 AM EDT Temperature 36.5 ??C (97.7 ??F) 12/24/2022 5:49 AM ED T Respiratory Rate 18 12/24/2022 5:49 AM EDT Oxygen Saturation 99% 12/24/2022 7:34 AM EDT Inhaled Oxygen Concentration - - Weight 81.1 kg (178 lb 12.7 oz) 12/23/2022 6:10 AM EDT Height 162.6 cm (5' 4 ) 12/21/2022 3:09 PM EDT Body Mass Index 30.69 12/21/2022 3:09 PM EDT Plan of Treatment Health Maintenance Due Date Last Done Comments HIV screening 2000 Hepatitis C screening 2005 Pneumococcal Vaccine (2 - 49 years) (1 of 2 - PCV) 2006 Tetanus adult (Td q 10,TDAP once) 2007 Covid-19 vaccine series (1 - 2023- season) 2024 Influenza vaccine 01/03/2025 RSV Immunization (1 - 1-dose 75+ series) 2062 Meningococcal Vaccine Aged Out No priscilla patel eligible based on patient's age to complete this topic Insurance COMMERCIAL GENERIC COMMERCIAL GENERIC COMMERCIAL GENERIC Advance Directives * Full Code (Latest Code Status on File) Date Activated Date Inactivated Comments 12/21/2022 4:22 PM 12/24/2022 4:37 PM Question Answer Comments With Whom was the Code Status Discussed? Patient
[2024-09-28 14:31] VITALS: BP 148/64; PULSE 104; O2SAT 95; BMI 34.1
== END 2024-09-28 14:50 | disposition home or self-care (01) ==
LOC: HO.HGI 14:24
PROVIDERS: PCP Internal Medicine; Visit Provider Nurse Practitioner Family
DX: R74.01 Elevation of levels of liver transaminase levels (principal)
CPT/HCPCS: 99203

== ENCOUNTER 2024-10-08 16:57 | Emergency (ER) | payer OTHER, SELFPAY ==
[2024-10-08 17:20] VITALS: BP 133/83; PULSE 98; RESP 16; TEMP 37.1; O2SAT 95; BMI 33.3
[2024-10-08 18:03] LABS: MANUAL DIFF FLAG NO
[2024-10-08 18:05] LABS: Basophils Absolute Auto 0.1 X10*3/uL (0.0-0.2); Basophils Percent Auto 0.3 % (0-2); Eosinophils Percent Auto 6.8 % (0-4); Hematocrit 38.4 % (42.0-52.0); Hemoglobin 13.3 g/dl (14.0-18.0); Imm Gran Pct Auto 0.7 % (0.0-0.4); Lymphocytes Absolute Auto 2.4 X10*3/uL (1.2-4.9); Lymphocytes Percent Auto 16.2 % (20-40); Mean Corpuscular HGB Conc 34.6 g/dl (31.0-36.0); Mean Corpuscular Volume 80.8 fL (80.0-98.0); Mean Platelet Volume 9.7 fL (9.4-12.4); Monocytes Absolute Auto 0.9 X10*3/uL (0.1-1.2); Monocytes Percent Auto 6.1 % (2-11); Neutrophils Absolute Auto 10.1 x10*3/uL (2.0-8.3); Neutrophils Percent Auto 69.9 % (45-73); Platelet Count 249 X10*3/uL (160-400); Red Blood Count 4.75 X10*6/uL (4.60-5.80); Red Cell Distribution Width 12.7 % (11.0-16.0); White Blood Count 14.5 X10*3/uL (4.8-10.8)
--- NOTE | 2024-10-08 18:06 | ED_ITS ---
HPI - Male Genitourinary General Chief complaint: Urogenital-Male Stated complaint: Left abd pain x2 days urinating blood this morning Time Seen by Provider: 10/09/24 00:14 History of Present Illness ED Provider: fatimah HPI Narrative: 39 M with hx ROGEL, p/w 2 days of subj fever, L flank pain, and blood tinged urine. no abd pain, NVD. Denies urinary hx. No surgeries. Related Data Previous Rx's ?Medication ?Instructions ?Recorded cetirizine 10 mg tablet (Zyrtec) 10 mg PO DAILY PRN allergy 09/03/23 symptoms 90 days #90 tabs epinephrine 0.3 mg/0.3 mL 0.3 mg (0.3 mL) IM Q4H PRN 09/04/23 injection, auto-injector (EpiPen anaphylaxis,shortness of breath #2 2-Luis) ea ipratropium 0.5 mg-albuterol 3 mg 3 ml inhalation Q4H PRN Wheezing 01/20/24 (2.5 mg base)/3 mL nebulization #90 mL soln albuterol sulfate 90 mcg/actuation 2 puff inhalation Q6H PRN wheezing 03/29/24 aerosol inhaler #1 ea fluticasone 500 mcg-salmeterol 50 1 inh inhalation BID 90 days #3 ea 03/29/24 mcg/dose blistr powdr for inhalation (Wixela Inhub) ipratropium bromide 42 mcg (0.06 2 spray intranasal TID-QID PRN 05/11/24 %) nasal spray Postnasal drip #15 mL levofloxacin 750 mg tablet 750 mg PO DAILY #10 tabs 10/09/24 sulfamethoxazole 800 1 tab PO BID 7 days #14 tabs 10/11/24 mg-trimethoprim 160 mg tablet (Bactrim DS) Allergies Allergy/AdvReac Type Severity Reaction Status Date / Time methylprednisolone Allergy Severe Shortness Verified 10/08/24 17:23 [From Solu-Medrol] of Breath and wheezing prednisone Allergy Severe Wheezing Verified 10/08/24 17:23 Penicillins [PENICILLINS] Allergy Unknown UNKNOWN Verified 10/08/24 17:23 [facility] Past Medical History Medical History Environmental allergies Asthma Surgical History No pertinent past surgical history Family History Family History Mother Diabetes Father No problems noted. Social History Social History Household Members: None Housing: House Do you presently have visiting nurse or other home services: No Alcohol intake: former Patient Tobacco Use Status: Never used Tobacco e-Cigarette/Vaping Use: Never Used Second Hand Smoke Exposure: No Advance Directives: No Advance Directives Information Provided: No Do you have a plan to hurt others: No Plan service: No Current occupational status: employed Current occupational exposures/hazards: No Cognitive needs: No Hearing needs: No Vision needs: Yes Physical Exam 2 Vital Signs: Vital Signs: Last Vital Signs Temp 97.6 F 10/09/24 02:35 Pulse 74 10/09/24 02:35 Resp 16 10/09/24 02:35 BP 106/47 L 10/09/24 02:35 Pulse Ox 96 10/09/24 02:35 O2 Del Method Room Air 10/09/24 02:35 BMI result Body Mass Index 33.3 Const: Other: Appearance: Alert.? Oriented X3.? No acute distress. ? Eyes: Pupils equal, round and reactive to light. ? ENT: Pharynx normal.? Atraumatic Neck: Normal inspection.? Neck supple. ? CVS: Normal heart rate and rhythm.? Pulses normal. ? Respiratory: No respiratory distress.? Breath sounds normal. ? Abdomen: Soft and nontender. ?L CVAT + Skin: Skin warm and dry.? Normal skin color. ? Extremities: No lower extremity edema. ? Neuro: Oriented X 3.? No motor deficit.? No sensory deficit. CN2-12 intact Course Course Course Narrative: 10/08/24 1806 MARYBETH Keita This is a Rapid Medical Examination (RME) performed by Felicitas Coelho PA-C in triage. Full HPI, ROS, assessment and treatment plan per primary provider in the Main ED. Hx: 39 yo M here for eval of L flank pain x days w/ hematuria starting today. PE/vitals: + L CVAT Plan: labs, UA Reevaluation(s) Reevaluation #1: I checked the culture results 09:50 on October 11. E coli unfortunately ciprofloxacin with indeterminate effectiveness. I have called in [employer] and left a voicemail on the patient's listed number. Thomas Subramanian MD October 11 09:50 Medications Administered Discontinued Medications Generic Name Dose Route Start Last Admin Trade Name Bharat PRN Reason Stop Dose Admin Ceftriaxone Sodium 2 gm 10/09/24 00:47 10/09/24 02:18 Ceftriaxone Sodium 2 Gm Vial IVPUSH 10/09/24 00:48 2 gm ONCE ONE Administration Ketorolac Tromethamine 30 mg 10/09/24 00:59 10/09/24 01:38 Ketorolac Tromethamine 30 Mg/Ml Vial IVPUSH 10/09/24 01:00 30 mg ONCE ONE Administration Medical Decision Making Medical Decision Making [facility] Narrative: 39 M with hematuria, subj fever. Afebrile. Nio septis criteria. No hydronephrosis on POCUS. UTI present. c/w Pyelonephritis. Abx , DC Differential Diagnosis Differential Diagnoses: The differential diagnosis associated with the presentation includes Admission/Observation ureterolith, UTI/Pyelo, MSK pain : back strain Lab Data 10/08/24 17:52 10/08/24 17:52 Labs: Lab Results 10/08/24 10/09/24 Range/Units 17:52 00:04 WBC 14.5 H (4.8-10.8) X10*3/uL RBC 4.75 (4.60-5.80) X10*6/uL Hgb 13.3 L (14.0-18.0) g/dl Hct 38.4 L (42.0-52.0) % MCV 80.8 (80.0-98.0) fL MCH 28.0 (27.0-33.0) pg MCHC 34.6 (31.0-36.0) g/dl RDW 12.7 (11.0-16.0) % Plt Count 249 (160-400) X10*3/uL MPV 9.7 (9.4-12.4) fL Immature Gran % (Auto) 0.7 H (0.0-0.4) % Neut % (Auto) 69.9 (45-73) % Lymph % (Auto) 16.2 L (20-40) % Ponce % (Auto) 6.1 (2-11) % Eos % (Auto) 6.8 H (0-4) % Baso % (Auto) 0.3 (0-2) % Lymph # (Auto) 2.4 (1.2-4.9) X10*3/uL Ponce # (Auto) 0.9 (0.1-1.2) X10*3/uL Eos # (Auto) 1.0 H (0.0-0.4) X10*3/uL Baso # (Auto) 0.1 (0.0-0.2) X10*3/uL Abs Immat Gran (auto) 0.10 H (0.00-0.03) X10*3/uL Absolute Neuts (auto) 10.1 H (2.0-8.3) x10*3/uL Absolute Nucleated RBC 0.000 (0.0-0.012) X10*3/uL Nucleated RBC % (auto) 0.0 (0.0-0.2) /100WBC Sodium 141 (135-145) mmol/L Potassium 3.5 (3.3-5.1) mmol/L Chloride 103 (96-108) mmol/L Carbon Dioxide 28 (22-29) mmol/L Anion Gap 14 (12-20) BUN 11 (9-16) mg/dL Creatinine 0.86 (0.5-1.4) mg/dL Estim Creat Clear Calc 117.5 Estimated GFR > 60 Random Glucose 100 (60-115) mg/dL Calcium 9.4 (8.4-10.2) mg/dL Magnesium 1.9 (1.6-2.6) mg/dL Total Bilirubin 0.8 (0.0-1.0) mg/dL AST 50 H (5-37) U/L ALT 132 H (0-40) U/L Alkaline Phosphatase 74 (39-117) U/L Total Protein 7.5 (6.5-8.0) g/dL Albumin 4.8 (3.5-5.0) g/dL Lipase 16 (8-78) U/L Urine Color Yellow Urine Appearance Clear Urine pH 6.0 (5.0-9.0) Ur Specific [place] 1.025 (1.005-1.025) Urine Protein 30 (1+) H (Neg-Trace) mg/dL Urine Glucose (UA) Negative (Negative) mg/dL Urine Ketones 15 (Negative) mg/dL Urine Blood Small (1+) H (Negative) Urine Nitrite Positive H (Negative) Ur Leukocyte Esterase Moderate (2+) H (Negative) Urine RBC 11-20 H (0-2) /HPF Urine WBC >50 H (0-5) /HPF Ur Squamous Epith Cells 3-5 (0-2) /HPF Urine Bacteria 2+ (None Seen) Hyaline Casts 0-2 (0-2) /LPF Prescription Management I considered prescription management with: Antibiotic Discharge Plan Discharge Clinical Impression: Acute pyelonephritis Patient Disposition: Home, Self-Care Instructions: Kidney Infection (ED) Additional Instructions: _ DISCHARGE DIAGNOSES: Urinary tract infection going up to the left kidney. No signs of blockage, obstruction of the urinary tract HISTORY OF PRESENTATION: ?Pain in the left flank and fever EMERGENCY DEPARTMENT COURSE,TESTS, TREATMENTS: While in the ED today you had an ultrasound that did not reveal secondary signs of kidney stones like obstruction of the bladder or kidney. Your lab work was reassuring but your urinalysis suggested infection of the kidney/urine. You were given a single dose of intravenous antibiotics DISCHARGE MEDICATIONS: Antibiotic for 10 day course take as prescribed on miss any doses FOLLOW-UP: ?Call your primary or general physician soon as possible to discuss your symptoms, your ED visit and to discuss follow up plans Call primary doctor for follow up INSTRUCTIONS ?& RETURN PRECAUTIONS: If any symptoms change first call your primary physician, if it is after-hours your primary doctors office should have a provider front desk receptionist you can speak with. If the symptoms are severe or very concerning to you then call 911 or return to the ED. Return for severe or sudden worsening left flank or abdominal pain inability urinate continued or persistent high fevers despite at least 48 hours of antibiotics Thomas Subramanian MD Emergency Phys[facility] Prescriptions: New levofloxacin 750 mg tablet 750 mg PO DAILY Qty: 10 0RF sulfamethoxazole-trimethoprim [Bactrim DS] 800-160 mg tablet 1 tab PO BID 7 Days Qty: 14 0RF No Action epinephrine [EpiPen 2-Luis] 0.3 mg/0.3 mL auto-injector 0.3 mg IM Q4H PRN (Reason: anaphylaxis,shortness of breath) Qty: 2 0RF cetirizine [Zyrtec] 10 mg tablet 10 mg PO DAILY PRN (Reason: allergy symptoms) 90 Days Qty: 90 0RF fluticasone propion-salmeterol [Wixela Inhub] 500-50 mcg/dose blister with device 1 inh inhalation BID 90 Days Qty: 3 4RF albuterol sulfate 90 mcg/actuation HFA aerosol inhaler 2 puff INHALATION Q6H PRN (Reason: wheezing) Qty: 1 6RF ipratropium bromide 42 mcg (0.06 %) spray,non-aerosol 2 spray intranasal TID-QID PRN (Reason: Postnasal drip) Qty: 15 3RF Rx Instructions: administer into each nostril ipratropium-albuterol 0.5 mg-3 mg(2.5 mg base)/3 mL solution for nebulization 3 ml inhalation Q4H PRN (Reason: Wheezing) Qty: 90 0RF Interventions: ED Discharge Assessment Last Done: 10/09/24 02:35 Discharge Date/Time: 10/09/24 02:37 Print Language: [place] Islander
[2024-10-08 18:28] LABS: Alanine Aminotransferase 132 U/L (0-40); Albumin Level 4.8 g/dL (3.5-5.0); Anion Gap 14 (12-20); Aspartate Amino Transferase 50 U/L (5-37); Bilirubin Total 0.8 mg/dL (0.0-1.0); Blood Urea Nitrogen 11 mg/dL (9-16); Calcium 9.4 mg/dL (8.4-10.2); Carbon Dioxide 28 mmol/L (22-29); Chloride 103 mmol/L (96-108); Creatinine Clr Calc Pharmacy 117.5; Estimated Glomerular Filt Rate > 60; Glucose Random 100 mg/dL (60-115); Lipase 16 U/L (8-78); Magnesium 1.9 mg/dL (1.6-2.6); Potassium 3.5 mmol/L (3.3-5.1); Sodium 141 mmol/L (135-145); Total Protein 7.5 g/dL (6.5-8.0)
[2024-10-08 18:43] LABS: Alkaline Phosphatase 74 U/L (39-117)
[2024-10-08 23:57] VITALS: BP 126/65; PULSE 73; RESP 18; TEMP 37.3; O2SAT 98
[2024-10-09 00:16] LABS: Appearance Urine Clear; Color Urine Yellow; Glucose Urine UA Negative (Negative); Leukocyte Esterase Urine Moderate (2+) (Negative); Nitrite Urine Positive (Negative); Specific Gravity - Urine 1.025 (1.005-1.025); UMIC TRIGGER UACC YES; Urine Blood Small (1+) (Negative); Urine Ketones 15 mg/dL (Negative); Urine Protein 30 (1+) mg/dL (Neg-Trace)
[2024-10-09 00:20] LABS: Bacteria Urine 2+ (None Seen); Hyaline Casts Urine 0-2 /LPF (0-2); UACC Culture Trigger YES; WBC Urine >50 /HPF (0-5)
[2024-10-09] MEDS: Ketorolac Tromethamine 30 MG/ML VIAL IVPUSH (01:38)
[2024-10-09 02:01] VITALS: BP 106/47; PULSE 74; RESP 16; TEMP 36.4; O2SAT 96
[2024-10-09] MEDS: cefTRIAXone sodium 2 GM VIAL IVPUSH (02:18)
[2024-10-09 02:35] VITALS: BP 106/47; PULSE 74; RESP 16; TEMP 36.4; O2SAT 96
== END 2024-10-09 02:37 | disposition home or self-care (01) ==
PROVIDERS: Physician Assistant Medical; Emergency Provider Emergency Medicine; PCP Internal Medicine
DX: N10 Acute pyelonephritis (principal); R10.2 Pelvic and perineal pain; R31.9 Hematuria, unspecified; R50.9 Fever, unspecified; Z79.899 Other long term (current) drug therapy
CPT/HCPCS: 36415; 80053; 81001; 83690; 83735; 85025; 87086; 87088; 87186; 96374; 96375; 99283; 99284; J0696; J1885

== ENCOUNTER 2024-12-06 08:34 | Outpatient (REF) | payer OTHER, SELFPAY ==
--- NOTE | ~2024-12-06 | US_ITS ---
EXAMINATION: US ABDOMEN COMPLETE WITH LIVER ELASTOGRAPHY HISTORY: R79.89 - Other specified abnormal findings of blood chemistry TECHNIQUE: Real-time grayscale ultrasound imaging of the abdomen was performed and images were reviewed. COMPARISON: There are no prior studies available for comparison. FINDINGS: Liver: The right lobe of the liver measures 22.1 cm in size. The left lobe of the liver measures 13.9 cm in size. The liver demonstrates increased echotexture, consistent with steatosis. No focal mass or intrahepatic biliary ductal dilatation is identified. There is normal hepatopedal flow in the portal vein. Ultrasound elastography of the liver was performed with 10 separate measurements of the liver parenchyma with the patient in the supine position. Measurements were obtained approximately 2 cm below Yovana's capsule and perpendicular to the capsule. The median shear wave velocity is 2.26 m/s. The interquartile range/median (IQR/median) is 0.04. Gallbladder and biliary tree: The gallbladder is unremarkable, without evidence of calculi, wall thickening, or pericholecystic fluid. There is no sonographic Le sign. The common bile duct is normal in caliber measuring 3 mm. Kidneys: The right kidney measures 11.5 cm in length. The left kidney measures 11.2 cm in length. The kidneys are unremarkable, without evidence of masses, hydronephrosis, or calculi. Pancreas: The pancreatic head, neck, and body are unremarkable. The pancreatic tail is obscured by bowel gas. Spleen: The spleen is normal in size and contour, measuring 9.3 cm in length. Abdominal aorta and inferior vena cava: The visualized portions of the abdominal aorta and inferior vena cava are normal in caliber. There is no free fluid in the abdomen. US/US abdomen comp w elastography IMPRESSION: Hepatomegaly and hepatic steatosis. The median shear wave velocity in the liver is 2.26 m/s, corresponding to a median liver stiffness of 15.45 kPa. The IQR/median value is 0.04. This is indicative of a quality data set. Findings are indicative of a high elastography value indicating advanced chronic liver disease. REFERENCE: Society of Radiologists in Ultrasound Liver Stiffness Thresholds (2020): LIVER STIFFNESS THRESHOLDS: *Shear wave velocity less than 1.3 m/s (Liver Stiffness equal or less than 5 kPa): High probability of being normal. *Shear wave velocity less than 1.7 m/s (Liver Stiffness less than 9 kPa): In the absence of other known clinical signs, rules out compensated advanced chronic liver disease. *Shear wave velocity between 1.7-2.1 m/s (Liver Stiffness 9-13 kPa): Suggestive of compensated advanced chronic liver disease but need further test for confirmation. *Shear wave velocity between 2.1-2.4 m/s (Liver Stiffness 13-17 kPa): Rules in compensated advanced chronic liver disease. *Shear wave velocity greater than 2.4 m/s (Liver Stiffness over 17 kPa): Suggestive of clinically significant portal hypertension. QUALITY OF DATA SET: *IQR/Median value equal or less than 0.15 implies a quality data set. *IQR/Median value over 0.15 implies a poor quality data set. SIGNIFICANT CHANGE FROM PRIOR EXAM: Significant change if liver stiffness measurement is 10% or greater from prior exam. OTHER CONSIDERATIONS: The stage of liver fibrosis may be overestimated in the setting of acute hepatitis, liver inflammation, elevated liver function tests, hepatic vascular congestion, obstructive cholestasis, non-fasting state, and infiltrative diseases such as amyloidosis and lymphoma. In some patients with NAFLD, the liver stiffness thresholds for compensated advanced chronic liver disease may be lower. In causes other than viral hepatitis and NAFLD, liver stiffness thresholds are not well established. Electronically signed by: Giovani Alcala MD 12/06/2024 10:07 AM ALISHA
--- OUTSIDE RECORDS SUMMARY | 2024-12-06 08:56 | XMS_ITS | Clinical Summary ---
Author Organization [facility] 52 [facility] Address [address] [place] [address] Care Team Providers Care Tire Repairman Name Role Phone Unavailable Primary Care Provider [...] living situation today? I have a [facility] place to live 12/21/2022 Housing Stability [...] 72 12/24/2022 5:49 AM EDT Temperature 36.5 C (97.7 F) 12/24/2022 5:49 AM EDT Respiratory Rate 18 12/24/2022 5:49 AM EDT [...]
--- OUTSIDE RECORDS SUMMARY | 2024-12-06 08:56 | XMS_ITS ---
Author Name [facility] Unknown Results Test Name/Text Value Interpretation Date Range Source Sodium SerPl-sCnc 140.0 mmol/L Normal 12/23/2022 136 - 14 5 [facility] HCO3 SerPl-sCnc 28.0 mmol/L Normal 12/23/2022 21 - 32 [facility] eGFRcr SerPlBld CKD-EPI 2020 >60.0 mL/min/1.73m2 Normal 12/23/2022 - [facility] BUN SerPl-mCnc 11.0 mg/dL Normal 12/23/2022 7 - 18 [facility] Creat SerPl-mCnc 0.73 mg/dL Normal 12/23/2022 0.7 - 1.3 Y [facility] Anion Gap3 SerPl-sCnc 7.0 mmol/L Normal 12/23/2022 5 - 15 [facility] Chloride SerPl-sCnc 105.0 mmol/L Normal 12/23/2022 98 - 1 07 [facility] Calcium SerPl-mCnc 9.3 mg/dL Normal 12/23/2022 8.5 - 10.1 [facility] Glucose SerPl-mCnc 126.0 mg/dL Above high normal 12/23/2022 65 - 110 [facility] Potassium SerPl-sCnc 4.5 mmol/L Normal 12/23/2022 3.5 - 5 .1 [facility] Magnesium SerPl-mCnc 2.4 mg/dL Normal 12/23/2022 1.6 - 2. 6 [facility] Phosphate SerPl-mCnc 4.5 mg/dL Normal 12/23/2022 2.5 - 4. 9 [facility] MCHC RBC Auto-mCnc 32.8 g/dL Normal 12/23/2022 31 - 36 [facility] RBC # Bld Auto 5.61 M/uL Normal 12/23/2022 4 - 6 [facility] Hgb Bld-mCnc 15.1 g/dL Normal 12/23/2022 13.2 - 17.1 [facility] Hct VFr Bld Auto 46.1 % Normal 12/23/2022 38.5 - 50 [facility] Platelet # Bld Auto 303.0 x1000/uL Normal 12/23/2022 150 - 420 [facility] MCV RBC Auto 82.2 fL Normal 12/23/2022 80 - [address] PMV Bld Auto 10.1 fL Normal 12/23/2022 8 - [address] MCH RBC Qn Auto 26.9 pg Below low normal 12/23/2022 27 - 3 3 [facility] WBC # Bld Auto 15.7 x1000/uL Above high normal 12/23/2022 4 - 11 [facility] RDW RBC Auto-Rto 13.2 % Normal 12/23/2022 11 - 15 [facility] Sodium SerPl-sCnc 139.0 mmol/L Normal 12/22/2022 136 - 14 5 [facility] Potassium SerPl-sCnc 4.2 mmol/L Normal 12/22/2022 3.5 - 5 .1 [facility] Prot SerPl-mCnc 7.8 g/dL Normal 12/22/2022 6.4 - 8.2 [facility] Chloride SerPl-sCnc 107.0 mmol/L Normal 12/22/2022 98 - 1 07 [facility] Albumin SerPl BCG-mCnc 4.1 g/dL Normal 12/22/2022 3.4 - 5 [facility] Bilirub SerPl-mCnc 0.3 mg/dL Normal 12/22/2022 - 1 [facility] Globulin Plas-mCnc 3.7 g/dL Normal 12/22/2022 2.5 - 5 [facility] eGFRcr SerPlBld CKD-EPI 2020 >60.0 mL/min/1.73m2 Normal 12/22/2022 - [facility] HCO3 SerPl-sCnc 25.0 mmol/L Normal 12/22/2022 21 - 32 Y [facility] Anion Gap3 SerPl-sCnc 7.0 mmol/L Normal 12/22/2022 5 - 15 [facility] ALP SerPl-cCnc 67.0 U/L Normal 12/22/2022 45 - 117 [facility] Creat SerPl-mCnc 0.9 mg/dL Normal 12/22/2022 0.7 - 1.3 [facility] Calcium SerPl-mCnc 10.1 mg/dL Normal 12/22/2022 8.5 - 10. 1 [facility] Glucose SerPl-mCnc 139.0 mg/dL Above high normal 12/22/2022 65 - 110 [facility] AST SerPl w P-5'-P-cCnc 11.0 U/L Below low normal 12/22/2022 15 - 37 [facility] ALT SerPl w/o P-5'-P-cCnc 28.0 U/L Normal 12/22/2022 16 - 61 [facility] BUN SerPl-mCnc 13.0 mg/dL Normal 12/22/2022 7 - 18 [facility] TSH SerPl DL<=0.005 mIU/L-aCnc 0.48 uIU/mL Normal 12/22/2022 0.36 - 3.74 [facility] Cholest SerPl-mCnc 171.0 mg/dL Normal 12/22/2022 - [facility] Trigl SerPl-mCnc 95.0 mg/dL Normal 12/22/2022 - [facility] LDLc SerPl Calc-mCnc 109.0 mg/dL Above high normal 3 - [facility] HDLc SerPl-mCnc 44.0 mg/dL Normal 12/22/2022 - [facility] Phosphate SerPl-mCnc 3.5 mg/dL Normal 12/22/2022 2.5 - 4. 9 [facility] Bilirub Direct SerPl-mCnc 0.11 mg/dL Normal 12/22/2022 0 - 0.2 [facility] Magnesium SerPl-mCnc 2.2 mg/dL Normal 12/22/2022 1.6 - 2. 6 [facility] Platelet # Bld Auto 328.0 x1000/uL Normal 12/22/2022 150 - 420 [facility] Basophils/leuk NFr Bld Auto 0.2 % Normal 12/22/2022 0 - 1.4 [facility] Imm Granulocytes # Bld Auto 0.2 x 1000/uL Normal 12/22/2022 0 - 0.3 [facility] Hgb Bld-mCnc 15.6 g/dL Normal 12/22/2022 13.2 - 17.1 [facility] MCV RBC Auto 83.0 fL Normal 12/22/2022 80 - [address] Imm Granulocytes/leuk NFr Bld Auto 1.2 % Above high normal 12/22/2022 0 - 1 [facility] BKR WAM ABSOLUTE NEUTROPHIL COUNT. 14.93 x 1000/uL Above high normal 12/22/2022 2 - 7.6 [facility] nRBC/100 WBC Bld Auto-Rto 0.0 % Normal 12/22/2022 0 - 1 [facility] Eosinophil/leuk NFr Bld Auto 0.1 % Normal 12/22/2022 0 - 5 [facility] BKR WAM BASOPHIL ABSOLUTE COUNT. 0.03 x 1000/uL Normal 12/22/2022 0 - 1 [facility] Monocytes # Bld Auto 0.5 x 1000/uL Normal 12/22/2022 0 - 1 [facility] Eosinophil # Bld Auto 0.02 x 1000/uL Normal 12/22/2022 0 - 1 [facility] Lymphocytes/leuk NFr Bld Auto 6.8 % Below low normal 12/22/2022 17 - 50 [facility] Lymphocytes # Bld Auto 1.14 x 1000/uL Normal 12/22/2022 0.6 - 3.7 [facility] Monocytes/leuk NFr Bld Auto 3.0 % Below low normal 12/22/2022 4 - 12 [facility] Hct VFr Bld Auto 47.4 % Normal 12/22/2022 38.5 - 50 [facility] MCH RBC Qn Auto 27.3 pg Normal 12/22/2022 27 - 33 [facility] PMV Bld Auto 10.3 fL Normal 12/22/2022 8 - [address] [address] Neutrophils/leuk NFr Bld Auto 88.7 % Above high normal 12/22/2022 39 - 72 [facility] RDW RBC Auto-Rto 12.8 % Normal 12/22/2022 11 - 15 [facility] WBC # Bld Auto 16.8 x1000/uL Above high normal 12/22/2022 4 - 11 [facility] RBC # Bld Auto 5.71 M/uL Normal 12/22/2022 4 - 6 [facility] MCHC RBC Auto-mCnc 32.9 g/dL Normal 12/22/2022 31 - 36 [facility] D dimer FEU PPP-mCnc 0.35 mg/L FEU Normal 12/21/2022 - 0. 5 [facility] Magnesium SerPl-mCnc 2.0 mg/dL Normal 12/21/2022 1.6 - 2. 6 [facility] Chloride SerPl-sCnc 108.0 mmol/L Above high normal 98 - 107 [facility] Anion Gap3 SerPl-sCnc 4.0 mmol/L Below low normal 12/21/2022 5 - 15 [facility] Glucose SerPl-mCnc 139.0 mg/dL Above high normal 12/21/2022 65 - 110 [facility] Calcium SerPl-mCnc 9.1 mg/dL Normal 12/21/2022 8.5 - 10.1 [facility] Sodium SerPl-sCnc 140.0 mmol/L Normal 12/21/2022 136 - 14 5 [facility] BUN SerPl-mCnc 10.0 mg/dL Normal 12/21/2022 7 - 18 [facility] HCO3 SerPl-sCnc 28.0 mmol/L Normal 12/21/2022 21 - 32 [facility] Creat SerPl-mCnc 1.0 mg/dL Normal 12/21/2022 0.7 - 1.3 [facility] Potassium SerPl-sCnc 3.7 mmol/L Normal 12/21/2022 3.5 - 5 .1 [facility] eGFRcr SerPlBld CKD-EPI 2020 >60.0 mL/min/1.73m2 Normal 12/21/2022 - [facility] Neutrophils/leuk NFr Bld Auto 57.0 % Normal 12/21/2022 39 - 72 [facility] Imm Granulocytes # Bld Auto 0.05 x 1000/uL Normal 12/21/2022 0 - 0.3 [facility] Lymphocytes # Bld Auto 2.47 x 1000/uL Normal 12/21/2022 0.6 - 3.7 [facility] Monocytes/leuk NFr Bld Auto 6.8 % Normal 12/21/2022 4 - 12 [facility] BKR WAM BASOPHIL ABSOLUTE COUNT. 0.05 x 1000/uL Normal 12/21/2022 0 - 1 [facility] Hgb Bld-mCnc 15.9 g/dL Normal 12/21/2022 13.2 - 17.1 [facility] BKR WAM ABSOLUTE NEUTROPHIL COUNT. 4.94 x 1000/uL Normal 12/21/2022 2 - 7.6 [facility] WBC # Bld Auto 8.7 x1000/uL Normal 12/21/2022 4 - 11 [facility] Monocytes # Bld Auto 0.59 x 1000/uL Normal 12/21/2022 0 - 1 [facility] PMV Bld Auto 9.9 fL Normal 12/21/2022 8 - [address] MCV RBC Auto 81.4 fL Normal 12/21/2022 80 - [address] Eosinophil # Bld Auto 0.56 x 1000/uL Normal 12/21/2022 0 - 1 [facility] MCH RBC Qn Auto 27.1 pg Normal 12/21/2022 27 - 33 [facility] Imm Granulocytes/leuk NFr Bld Auto 0.6 % Normal 12/21/2022 0 - 1 [facility] Lymphocytes/leuk NFr Bld Auto 28.5 % Normal 12/21/2022 17 - 50 [facility] MCHC RBC Auto-mCnc 33.3 g/dL Normal 12/21/2022 31 - 36 [facility] Platelet # Bld Auto 299.0 x1000/uL Normal 12/21/2022 150 - 420 [facility] Eosinophil/leuk NFr Bld Auto 6.5 % Above high normal 12/21/2022 0 - 5 [facility] RBC # Bld Auto 5.86 M/uL Normal 12/21/2022 4 - 6 [facility] Hct VFr Bld Auto 47.7 % Normal 12/21/2022 38.5 - 50 [facility] RDW RBC Auto-Rto 12.6 % Normal 12/21/2022 11 - 15 [facility] nRBC/100 WBC Bld Auto-Rto 0.0 % Normal 12/21/2022 0 - 1 [facility] Basophils/leuk NFr Bld Auto 0.6 % Normal 12/21/2022 0 - 1.4 [facility] Allergies Allergen Reaction Severity Comment Documented Date Source Statu s PREDNISONE SHORTNESS OF BREATH 12/21/2022 [facility] active PENICILLINS SHORTNESS OF BREATH [facility] Problems Problem Status Onset Date Problem Type Date of Resoluti on Source Hypoxia active EncounterDiagnosisAct [facility] Mild intermittent asthma with acute exacerbation active EncounterDiagnosisAct [facility] Acute asthma exacerbation active 2022-12-21 ProblemAct [facility] Encounters Encounter Type Encounter Reason Primary Diagnosis Location Date Inpatient Unspecified asthma, with exacerbation Unspecified asthma, with exacerbation [facility] 12/21/2022 Care Team Organization Name Specialty Phone Email Start Date End Da te [facility] 12/21/2022 [facility] 0 12/21/2022
== END 2024-12-06 08:35 | disposition home or self-care (01) ==
LOC: HO.US 08:34
PROVIDERS: PCP Internal Medicine; Visit Provider Nurse Practitioner Family
DX: R79.89 Other specified abnormal findings of blood chemistry (principal)
CPT/HCPCS: 76700; 76981

== ENCOUNTER → 2024-12-06 08:39 | Outpatient (BNV) | payer OTHER, SELFPAY | PROVIDERS: PCP Internal Medicine; Visit Provider Radiology Diagnostic Radiology | DX: R16.0 Hepatomegaly, not elsewhere classified (principal); K76.0 Fatty (change of) liver, not elsewhere classified | CPT/HCPCS: 76700 ==

== ENCOUNTER 2024-12-08 15:41 | Outpatient (REF) | payer OTHER, SELFPAY ==
[2024-12-08 16:31] LABS: Hemoglobin A1C 167.3363 umol/L; Total Hemoglobin (HGBA1C) 3654.3331 umol/L
[2024-12-08 16:39] LABS: INTERNATIONAL NORM RATIO 1.0 (0.9-1.1); Prothrombin Time 11.0 SEC (10.9-12.4)
[2024-12-08 18:21] LABS: Ferritin 428 ng/mL (20-250); Gamma Glutamyl Transpeptidase 91 U/L (11-51)
== END 2024-12-08 15:42 | disposition home or self-care (01) ==
LOC: HO.LAB 15:41
PROVIDERS: PCP Internal Medicine; Visit Provider Nurse Practitioner Family
DX: R79.89 Other specified abnormal findings of blood chemistry (principal); R74.8 Abnormal levels of other serum enzymes; R10.9 Unspecified abdominal pain; K58.9 Irritable bowel syndrome, unspecified; Z83.3 Family history of diabetes mellitus; Z01.84 Encounter for antibody response examination
CPT/HCPCS: 36415; 82105; 82390; 82728; 82977; 83036; 85610; 86015; 86140; 86364; 86381

== ENCOUNTER 2025-01-25 14:37 | Outpatient (AMB) | payer OTHER, SELFPAY ==
--- NOTE | 2025-01-25 14:51 | A.OFFPC_ITS ---
Vital Signs 01/25/25 14:52 Height 5 ft 4 in Weight 196 lb BMI 33.6 BP 110/76 Blood Pressure Location Lt brachial Position Sitting Pulse 104 H Pulse Source Pulse Oximeter Temp 97.7 F Temp Source Temporal Artery Scan Pulse Oximetry (%) 96 Oxygen Delivery Method Room Air Intake Visit Reasons: Annual Exam Intake Note: Patient is here today for a physical. 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: Not Required per policy Accompanied by: Self / Same As Patient Allergies methylprednisolone (From Solu-Medrol) Allergy (Severe, Verified 01/25/25 15:00) Shortness of Breath and wheezing prednisone Allergy (Severe, Verified 01/25/25 15:00) Wheezing Penicillins (PENICILLINS) Allergy (Unknown, Verified 01/25/25 15:00) UNKNOWN Medication List - Last Reconciled 01/25/25 by Nae Romo MD albuterol sulfate 90 mcg/actuation 2 puffs inhalation Q6H PRN cetirizine (Zyrtec) 10 mg PO DAILY PRN 90 days epinephrine (EpiPen 2-Luis) 0.3 mg (0.3 mL) IM Q4H PRN fluticasone propion-salmeterol 500-50 mcg/dose (Wixela Inhub) 1 inh inhalation BID 90 days ipratropium bromide 2 sprays intranasal TID-QID PRN ipratropium-albuterol 0.5 mg-3 mg(2.5 mg base)/3 mL 3 mL inhalation Q4H PRN Tobacco use date assessed: 01/25/25 Dental Screening Dental Screen Date: 01/25/25 Did you have a dental visit in the last 12 months?: Yes Did you have a dental problem in the last 6 months where you did not have access to dental care?: No Was dental information given to patient?: Patient has dentist HPI HPI Comments History of Present Illness Details The patient is a 39-year-old male presenting for an annual physical examination. The patient has a history of sleep apnea and is currently using a CPAP machine for management. The patient is prediabetic, with a recent HbA1c level of 6.3%. There is no history of diabetes-related complications reported. [facility] Medical History Environmental allergies Asthma Surgical History No pertinent past surgical history Family History Mother Diabetes Father No problems noted. Social History Household Members: None Housing: House Do you presently have visiting nurse or other home services: No Alcohol intake: former Patient Tobacco Use Status: Never used Tobacco e-Cigarette/Vaping Use: Never Used Second Hand Smoke Exposure: No service: No Current occupational status: employed Current occupational exposures/hazards: No Cognitive needs: No Hearing needs: No Vision needs: Yes (Glasses) Questionnaire PHQ-9 Over the last 2 weeks, how often have you been bothered by any of the following problems? 1. Little interest or pleasure in doing things: not at all 2. Feeling down, depressed, or hopeless: not at all 3. Trouble falling or staying asleep, or sleeping too much: not at all 4. Feeling tired or having little energy: not at all 5. Poor appetite or overeating: not at all 6. Feeling bad about yourself - or that you are a failure or have let yourself or your family down: not at all 7. Trouble concentrating on things, such as reading the newspaper or watching television: not at all 8. Moving or speaking so slowly that other people could have noticed. Or the opposite - being so fidgety or restless that you have been moving around a lot more than usual: not at all 9. Thoughts that you would be better off or of hurting yourself in some way: not at all Total score: 0 Depression Screening Interpretation: Negative Depression Screening Done: Yes 33121 - PHQ-9 Billing: Yes Source: Developed by Drs. Giovani Newton, Jessy Montesinos, Tony Avery and colleagues, with an educational anshul from [employer]. Thrive Questionnaire Date Thrive assessed: 01/25/25 I am a: Patient What is your living situation today?: I have a steady place to live Within the past 12 months, did the food you bought not last and you didn't have the money to get more?: I choose not to answer this question Within the past 12 months, did you worry whether your food would run out before you got money to buy more?: I choose not to answer this question Do you have trouble paying for medicines?: Yes Do you have trouble getting transportation to medical appointments?: No Do you have trouble paying your heating and electricity bill?: I choose not to answer this question Do you have trouble taking care of your child, family member or friend?: I choose not to answer this question Do you have trouble with day-to-day activities such as bathing, preparing meals, shopping, managing finances, etc.?: No Are you currently unemployed and looking for a job?: No Are you interested in more education?: I choose not to answer this question Please select the resources that you would like help with: None Currently or been in a relationship where the following occur: No concerns reported THRIVE Score: 0 AUDIT C Alcohol Use Questionnaire (AUDIT-C) 1. How often do you have a drink containing alcohol?: Never Total Score: 0 Score Reviewed/Action Taken: No AIXA-7 AMB Questionnaire AIXA-7 Date AIXA - 7 assessed: 01/25/25 Feeling nervous, anxious, or on edge: 0 = Not at all Not being able to stop or control worryin = Not at all Worrying too much about different things: 0 = Not at all Trouble relaxin = Not at all Being so restless that it is hard to sit still: 0 = Not at all Becoming easily annoyed or irritable: 0 = Not at all Feeling afraid as if something awful might happen: 0 = Not at all Total AIXA-7 score (0-4 normal; 5-9 mild; 10-14 moderate; 15-21 severe): 0 Source: Developed by Drs. Giovani Newton, Jessy Montesinos, Tony Avery and colleagues, with an educational anshul from [employer]. AIXA-7 Assessment Billing AIXA-7 Assessment Tool: AIXA-7 Assessment 21943 Review of Systems Const All systems reviewed & are unremarkable except as noted in HPI and below Card Denies chest pain at rest, Denies chest pain with activity, Denies edema, Denies irregular heart rhythm, Denies claudication, Denies dyspnea, Denies dyspnea on exertion, Denies orthopnea, Denies paroxysmal nocturnal dyspnea and Denies slow heart rate Resp Denies cough, Denies dyspnea and Denies dyspnea on exertion Physical exam (Primary Care) Vital Signs: Last Vital Signs Temp 97.7 F 01/25/25 14:52 Pulse 104 H 01/25/25 14:52 BP 110/76 01/25/25 14:52 Pulse Ox 96 01/25/25 14:52 Oxygen Delivery Method Room Air 01/25/25 14:52 BMI result Body Mass Index 33.6 Tobacco/Smoking Status: Tobacco use Status Tobacco use date assessed 01/25/25 01/25/25 14:56 Patient Tobacco Use Status Never used Tobacco 01/25/25 14:56 e-Cigarette/Vaping Use Never Used 01/25/25 14:56 PHQ-9: PHQ-9 Score PHQ-9: Total score 0 01/25/25 14:56 Depression Screening Interpretation: Negative Thrive Assessment: Date of Thrive Assessment Date Thrive assessed 01/25/25 01/25/25 14:56 Currently or been in a relationship where the following occur: No concerns reported HENNE Head: Yes normal to inspection, Yes normocephalic and Yes atraumatic Ears: external ears normal Eyes General: appearance normal, both eyes and all related structures Eyelids: Yes eyelids normal Conjunctivae: conjunctivae normal Neck Neck: Yes normal visual inspection and Yes supple Resp Effort & Inspection: normal respiratory effort Auscultation: clear to auscultation bilaterally Cardio Jugular venous distension: no JVD Rate: regular rate Rhythm: regular rhythm Heart sounds: S1 normal heart sound present and S2 normal heart sound present GI Inspection: Yes normal to inspection Palpation (GI): Soft to palpation and nontender Auscultation: normal bowel sounds Skin General skin exam: no rashes or lesions noted Neuro General: no focal motor deficits Extrem General: Yes full ROM Psych Appearance: grossly normal Coding Level of Care Code Est Pt Prev Care 18-39y(11933) Diagnoses Physical exam Z00.00 Additional Codes PHQ-9 - 61760 - PHQ-9 Billing: Yes ([id number]) AIXA-7 Assessment Billing - AIXA-7 Assessment Tool: AIXA-7 Assessment 11448 ([id number]) Time Spent (min) 30 Assessment & Plan Assessment & Plan (1) Physical exam: Code(s): Z00.00 - Encounter for general adult medical examination without abnormal findings Category: Medical Plan Repeat in a a year. Medications: Refilled fluticasone propion-salmeterol 500-50 mcg/dose (Wixela Inhub) 1 inh inhalation BID 3 ea 4RF 90 days J45.40 - Moderate persistent asthma, uncomplicated ipratropium-albuterol 0.5 mg-3 mg(2.5 mg base)/3 mL 3 mL inhalation Q4H PRN 90 mL 0RF Wheezing
[2025-01-25 14:52] VITALS: BP 110/76; PULSE 104; TEMP 36.5; O2SAT 96; BMI 33.6
--- OUTSIDE RECORDS SUMMARY | 2025-01-25 17:50 | XMS_ITS | Clinical Summary ---
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 I have a [facility] place to live 12/21/2022 Housing Stability [...] Tetanus adult (Td q 10,TDAP once) 2007 Influenza vaccine 12/03/2024 Covid-19 vaccine series (1 - 2023- season) 2025 RSV Immunization (1 - 1-dose 75+ series) 2062 Meningococcal B Vaccine Aged Out No l onger eligible based on patient's age to complete this topic Meningococcal Vaccine Aged Out No priscilla patel eligible based on patient's age to complete this topic Insurance COMMERCIAL GENERIC COMMERCIAL GENERIC COMMERCIAL GENERIC Advance Directives * Full Code (Latest Code Status on File) Date Activated Date Inactivated Comments 12/21/2022 4:22 PM 12/24/2022 4:37 PM Question Answer Comments With Whom was the Code Status Discussed? Patient
== END 2025-01-25 15:18 | disposition home or self-care (01) ==
LOC: HO.HMCH 14:38
PROVIDERS: PCP Internal Medicine; Visit Provider Internal Medicine
DX: Z00.00 Encounter for general adult medical examination without abnormal findings (principal)

== ENCOUNTER → 2025-01-25 14:37 | Outpatient (BNVA) | payer OTHER, SELFPAY | PROVIDERS: PCP Internal Medicine; Visit Provider Internal Medicine | DX: Z00.00 Encounter for general adult medical examination without abnormal findings (principal); G47.30 Sleep apnea, unspecified; R73.03 Prediabetes; J45.40 Moderate persistent asthma, uncomplicated; Z99.89 Dependence on other enabling machines and devices | CPT/HCPCS: 96127 ==

== ENCOUNTER 2025-03-30 14:10 | Outpatient (AMB) | payer OTHER, SELFPAY ==
--- NOTE | 2025-03-30 14:18 | MHC.OFFVIS ---
Vital Signs 03/30/25 14:23 Height 5 ft 4 in Weight 197 lb BMI 33.8 BP 118/66 Blood Pressure Location Rt brachial Position Sitting Pulse 84 Pulse Source Pulse Oximeter Pulse Oximetry (%) 96 Oxygen Delivery Method Room Air Intake Visit Reasons: 6 m elastography result liver panel Intake Note: Est pt for mgmt of fatty liver. Liver US done in December. CC: Pt denies any new GI sx or concerns at this time. 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 Patient will get ultrasound with elastography. If levels will continue to be elevated we will send him for additional blood work to rule out any autoimmune disorders that could cause. Patient will follow low fat, low-salt, low carb and high-protein diet. Most likely nonalcoholic fatty liver disease. Patient will try to lose weight. Follow-up in 6 months, sooner on as needed basis. He is agreeable to this plan and verbalizes understanding of instructions. He was given the opportunity to ask questions and all questions answered. ? Thank you for allowing me to participate in his care Orders Liver Panel Today R74.01 US abdomen comp w elastography Today R79.89 Hepatitis A,B,C Profile Today R79.89 TODAY'S VISIT Patient is here today for follow-up and to discuss lab and ultrasound results. Patient denies any GI concerning symptoms. Diagnosed with hepatomegaly and nonalcoholic fatty liver disease. Patient reports that he is trying to eat food that is greasy and creatinine. He does not drink alcohol on a regular basis. He reports that he is walking about 5 miles daily at work. Patient denies any abdominal pain or discomfort. Denies any dyspepsia, dysphagia or odynophagia. Denies melena, hematochezia, unintentional weight loss or ribbon like stools. [facility] Medical History Environmental allergies Asthma Surgical History No pertinent past surgical history Family History Mother Diabetes Father No problems noted. Social History Household Members: None Housing: House Do you presently have visiting nurse or other home services: No Alcohol intake: former Patient Tobacco Use Status: Never used Tobacco e-Cigarette/Vaping Use: Never Used Second Hand Smoke Exposure: No service: No Current occupational status: employed Current occupational exposures/hazards: No Cognitive needs: No Hearing needs: No Vision needs: Yes (Glasses) Review of Systems Const Denies weight gain and Denies weight loss ENT Reports no additional complaints, Denies dysphagia and Denies odynophagia Card Reports no additional complaints Resp Reports no additional complaints GI Denies abdominal pain, Denies belching, Denies melena, Denies bloating, Denies change in bowel habits, Denies dysphagia, Denies excessive flatus, Denies dyspepsia, Denies heartburn, Denies diarrhea, Denies loose stools, Denies nausea, Denies odynophagia and Denies vomiting Reports no additional complaints Musc Reports no additional complaints Neuro Reports no additional complaints Psych Reports no additional complaints Endo Reports no additional complaints Physical Exam Const General: healthy appearing and no acute distress Nutritional Appearance: obese Orientation/consciousness: patient oriented x3 Resp Effort & Inspection: normal respiratory effort, able to speak in complete sentences, no tracheal deviation and symmetric chest movement Auscultation: clear to auscultation bilaterally Cardio Rate: regular rate GI Inspection: Yes normal to inspection, No distended and Yes obesity Palpation (GI): Soft to palpation, not firm, nontender and No hepatosplenomegaly present Auscultation: normal bowel sounds General: Yes no CVA tenderness Back/Spine/Pelvis Back: no CVA tenderness Skin General skin exam: elasticity normal, turgor normal and dry skin Neuro General: patient oriented x3 Psych Appearance: grossly normal Mental Status: mental status grossly normal Results Reviewed Results Reviewed: ABDOMINAL ULTRASOUND WITH LIVER ELASTOGRAPHY FINDINGS: Liver: The right lobe of the liver measures 22.1 cm in size. The left lobe of the liver measures 13.9 cm in size. The liver demonstrates increased echotexture, consistent with steatosis. No focal mass or intrahepatic biliary ductal dilatation is identified. There is normal hepatopedal flow in the portal vein. Ultrasound elastography of the liver was performed with 10 separate measurements of the liver parenchyma with the patient in the supine position. Measurements were obtained approximately 2 cm below Yovana's capsule and perpendicular to the capsule. The median shear wave velocity is 2.26 m/s. The interquartile range/median (IQR/median) is 0.04. Gallbladder and biliary tree: The gallbladder is unremarkable, without evidence of calculi, wall thickening, or pericholecystic fluid. There is no sonographic Le sign. The common bile duct is normal in caliber measuring 3 mm. Kidneys: The right kidney measures 11.5 cm in length. The left kidney measures 11.2 cm in length. The kidneys are unremarkable, without evidence of masses, hydronephrosis, or calculi. Pancreas: The pancreatic head, neck, and body are unremarkable. The pancreatic tail is obscured by bowel gas. Spleen: The spleen is normal in size and contour, measuring 9.3 cm in length. Abdominal aorta and inferior vena cava: The visualized portions of the abdominal aorta and inferior vena cava are normal in caliber. There is no free fluid in the abdomen. US/US abdomen comp w elastography IMPRESSION: Hepatomegaly and hepatic steatosis. The median shear wave velocity in the liver is 2.26 m/s, corresponding to a median liver stiffness of 15.45 kPa. The IQR/median value is 0.04. This is indicative of a quality data set. Findings are indicative of a high elastography value indicating advanced chronic liver disease. Laboratory Tests 12/08/24 15:51 Hemoglobin A1c % 6.3 H Ferritin 428 H GGT 91 H C-Reactive Protein 0.90 H Ceruloplasmin 26 Alpha Fetoprotein 2.3 Anti-Mitochondrial Ab NEGATIVE Anti-Smooth Muscle Ab <20 Tiss Transglutamin IgA <1.0 Assessment & Plan Assessment & Plan (1) Transaminitis: Code(s): R74.01 - Elevation of levels of liver transaminase levels Category: Medical (2) Hepatomegaly: Code(s): R16.0 - Hepatomegaly, not elsewhere classified Plan Hepatomegaly and nonalcoholic fatty liver disease. Patient will repeat blood work in 4 months. Will repeat liver ultrasound with elastography again. Discussed with patient the importance of weight loss and dietary choices. Low-fat, low carb, low salt and high protein diet recommended again. Follow-up in the office in 6 months. Patient will call us if you have any GI concerning symptoms. Patient is agreeable to this plan and verbalizes understanding of instructions. He was given the opportunity to ask questions and all questions answered. Thank you for allowing me to participate in his care Orders: Orders Platelet Count 4 Months R74.01 - Elevation of levels of liver transaminase levels Liver Fibrosis Pnl 4 Months K76.0 - Fatty (change of) liver, not elsewhere classified Liver Panel 4 Months R74.01 - Elevation of levels of liver transaminase levels US abdomen gabriel w elastography 4 Months K76.0 - Fatty (change of) liver, not elsewhere classified Coding Level of Care Code Est Pt Level 3 (84803) Diagnoses Transaminitis R74.01 Hepatomegaly R16.0 Time Spent (min) 25 Comment 15 minutes spent with patient and additional 10 minutes spent reviewing his records
[2025-03-30 14:23] VITALS: BP 118/66; PULSE 84; O2SAT 96; BMI 33.8
--- OUTSIDE RECORDS SUMMARY | 2025-03-30 17:09 | XMS_ITS | Clinical Summary ---
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 I have a [facility] place to live 12/21/2022 Housing Stability Not [...] vaccine 12/03/2024 Covid-19 vaccine series (1 - 2024- season) 2025 RSV Immunization (1 - 1-dose [...]
== END 2025-03-30 14:36 | disposition home or self-care (01) ==
LOC: HO.HGI 14:11
PROVIDERS: PCP Internal Medicine; Visit Provider Nurse Practitioner Family
DX: R74.01 Elevation of levels of liver transaminase levels (principal); R16.0 Hepatomegaly, not elsewhere classified
CPT/HCPCS: 99213